=== PATIENT | female | born 1955 | race Caucasian/White ===

== ENCOUNTER 2019-01-22 07:12 | Day surgery (SDC) | payer MEDICARE, MEDICAID ==
[2019-01-22] MEDS ORDERED: Lactated Ringers 1,000 ML IV SCH (08:00)
[2019-01-22] MEDS ORDERED: Propofol 200 MG/20 ML SDV ONE (08:02)
[2019-01-22] MEDS ORDERED: fentaNYL 100 MCG/2 ML SDV ONE (08:02)
[2019-01-22] MEDS ORDERED: Midazolam 1 MG/ML 2 ML SDV ONE (08:02)
[2019-01-22] MEDS ORDERED: Dextrose 5%-Lactated Ringers 1,000 ML IV SCH (08:05)
[2019-01-22] MEDS ORDERED: Glycopyrrolate 0.2 MG/ML 2 ML SDV IVPUSH ONE (08:30)
--- NOTE | 2019-01-25 15:39 | OR ---
DATE OF PROCEDURE: 01/22/2019 SURGEON: Jaya Peraza MD PREOPERATIVE DIAGNOSIS: Recurrent morbid obesity, status post previous laparoscopic adjustable gastric band placement. POSTOPERATIVE DIAGNOSES: 1. Recurrent morbid obesity, status post previous laparoscopic adjustable gastric band placement. 2. Large paraesophageal diaphragmatic hernia associated with prolapse of band up into intrathoracic location. 3. Mild antral gastritis. OPERATIVE PROCEDURE: Esophagogastroduodenoscopy with antral biopsies for CLOtest. ANESTHESIA: IV sedation. INDICATION FOR PROCEDURE: This is a 63-year-old status post laparoscopic adjustable gastric band placement. The patient initially had reasonable results but presently has BMI of 62.6, and the plan is to proceed with upper GI endoscopy in preparation for conversion of the patient from a lap band status to Pati-en-Y gastric bypass. Potential risks of the procedure including bleeding and perforation were discussed, and the patient wishes to proceed. DETAILS OF PROCEDURE: The patient was taken to the operating room and placed in a left lateral decubitus position. IV sedation was administered, after which the upper GI endoscope was passed orally through the length of the esophagus and into the area of the esophagogastric junction. This was quite distorted and the EG junction was noted to be quite shortened up around 30 cm from the incisors indicating a large diaphragmatic hernia. As one progressed through the EG junction, then entered into the upper aspect of the stomach, the band could be identified. This was eventually traversed. There was no significant narrowing of the band imprint. There was some redness in the pouch in the EG junction above that likely related to some poor emptying in that area. The remainder of the stomach showed some patchy redness in the antrum, and the pyloric channel and visualized portions of the duodenum were unremarkable. Biopsies were obtained from the antrum and sent for CLOtest for H. pylori. Retroflexion confirmed a large paraesophageal diaphragmatic hernia and no evidence of erosion of the band into the stomach from that vantage point. Scope was then withdrawn and the procedure was then concluded. Plan will be to proceed with revision of this from a lap band status to Pati-en-Y gastric bypass status next . Paraesophageal diaphragmatic hernia will also be repaired concurrently. Potential risks of the procedure were reviewed with the patient and will be scheduled for this coming . Jaya Peraza MD /[id number]
== END 2019-01-22 10:26 | disposition home or self-care (01) ==
LOC: JP.SDS 07:12
PROVIDERS: ATTEND Surgery
DX: Z01.818 Encounter for other preprocedural examination (principal); K44.9 Diaphragmatic hernia without obstruction or gangrene; K29.70 Gastritis, unspecified, without bleeding; K95.09 Other complications of gastric band procedure; E66.01 Morbid (severe) obesity due to excess calories; I10 Essential (primary) hypertension; E11.9 Type 2 diabetes mellitus without complications; K21.9 Gastro-esophageal reflux disease without esophagitis; E78.5 Hyperlipidemia, unspecified; F32.9 Major depressive disorder, single episode, unspecified; J45.909 Unspecified asthma, uncomplicated; Z68.44 Body mass index [BMI] 60.0-69.9, adult
CPT/HCPCS: 43239; 87081; J2250; J2704; J3010; J3490; J7042

== ENCOUNTER 2019-01-28 08:35 | Inpatient (IN) | payer MEDICARE, MEDICAID ==
[~2019-01-28 08:35] MED LIST: Bupivacaine 0.5%/EPINEPHrine 1:200,000 50 ML MDV ONE
[2019-01-28] MEDS ORDERED: Levofloxacin 500 MG/20 ML SDV ONE (09:01)
[2019-01-28] MEDS ORDERED: Gabapentin 300 MG Cap PO ONE (09:15)
[2019-01-28] MEDS ORDERED: Scopolamine 1.5 MG Transdermal Patch TOP SCH (09:15)
[2019-01-28] MEDS ORDERED: Acetaminophen 500 MG Tab PO ONE (09:15)
[2019-01-28] MEDS ORDERED: Celecoxib 200 MG Cap PO ONE (09:15)
[2019-01-28] MEDS ORDERED: Dextrose 5%-Lactated Ringers 1,000 ML IV SCH (09:30)
[2019-01-28] MEDS ORDERED: Albuterol/Ipratropium 3.0-0.5 MG/3 ML Neb Soln NEB ONE (10:00)
[2019-01-28] MEDS ORDERED: Levofloxacin/Dextrose 5%-Water 500 MG in Premix Bag 1 BAG IV ONE (10:30)
[2019-01-28] MEDS ORDERED: Lidocaine 2% 100 MG/5 ML Syringe IVPUSH SCH (10:45)
[2019-01-28] MEDS ORDERED: Ketamine 500 MG/5 ML MDV IV SCH (10:45)
[2019-01-28] MEDS ORDERED: Ropivacaine 60 ML, Dexamethasone 8 MG, EPINEPHrine 0.4 MG, Sodium Chloride 0.9% 17.6 ML NERVRT SCH ×4 (10:45)
[2019-01-28] MEDS ORDERED: Ketamine 50 MG in Sodium Chloride 0.9% 49.5 ML IV SCH (10:45)
[2019-01-28] MEDS ORDERED: fentaNYL 250 MCG/5 ML SDV ONE ×2 (11:23→12:21)
[2019-01-28] MEDS ORDERED: Lactated Ringers 1,000 ML ONE (11:23)
[2019-01-28] MEDS ORDERED: Rocuronium 50 MG/5 ML Vial ONE ×2 (11:24→12:33)
[2019-01-28] MEDS ORDERED: Neostigmine Methylsulfate 1 MG/ML 5 ML Syringe ONE (11:24)
[2019-01-28] MEDS ORDERED: Propofol 200 MG/20 ML SDV ONE (11:24)
[2019-01-28] MEDS ORDERED: Succinylcholine 200 MG/10 ML MDV ONE (11:24)
[2019-01-28] MEDS ORDERED: Dexamethasone 4 MG/ML SDV ONE (11:24)
[2019-01-28] MEDS ORDERED: Ondansetron 4 MG/2 ML SDV ONE (11:24)
[2019-01-28] MEDS ORDERED: Glycopyrrolate 0.2 MG/ML 5 ML MDV ONE (11:24)
[2019-01-28] MEDS ORDERED: hydrOXYzine HCl 100 MG/2 ML SDV IM ONE (15:31)
[2019-01-28] MEDS ORDERED: Insulin Lispro 100 Unit/ML 3 ML KwikPen SUBCUT ONE (15:32)
[2019-01-28] MEDS ORDERED: Insulin Lispro 100 Unit/ML 3 ML KwikPen SUBCUT PRN (16:18)
[2019-01-28] MEDS ORDERED: Labetalol 20 MG/4 ML Syringe IVPUSH PRN (16:18)
[2019-01-28] MEDS ORDERED: HYDROmorphone 1 MG/ML Syringe IV PRN (16:18)
[2019-01-28] MEDS ORDERED: hydrOXYzine HCl 100 MG/2 ML SDV IM PRN (16:18)
[2019-01-28] MEDS ORDERED: diphenhydrAMINE 50 MG/ML SDV IVPUSH PRN (16:18)
[2019-01-28] MEDS ORDERED: Albuterol/Ipratropium 3.0-0.5 MG/3 ML Neb Soln INH PRN (16:18)
[2019-01-28] MEDS ORDERED: Ondansetron 4 MG/2 ML SDV IVPUSH PRN (16:18)
[2019-01-28] MEDS ORDERED: Metoclopramide 10 MG/2 ML SDV IVPUSH PRN (16:18)
[2019-01-28] MEDS ORDERED: 50% Dextrose in Water 50 ML Syringe IVPUSH PRN (16:18)
[2019-01-28] MEDS ORDERED: HYDROmorphone 0.5 MG/0.5 ML Syringe IVPUSH PRN (16:18)
[2019-01-28] MEDS ORDERED: Glucagon,Human Recombinant 1 MG Vial IM PRN (16:18)
[2019-01-28] MEDS: Dextrose 5%-Lactated Ringers 1,000 ML IV SCH (16:31)
[2019-01-28] MEDS: Lactated Ringers 1,000 ML IV SCH (16:33)
[2019-01-28] MEDS ORDERED: MVI, Adult with Vitamin K 10 ML, Thiamine 200 MG, Chromium/Copper/Mang/Selen/Zn 1 ML in... IV SCH ×4 (17:00)
[2019-01-28] MEDS: Pantoprazole 40 MG Vial IVPUSH SCH (17:49)
[2019-01-28] MEDS: Acetaminophen Soln 650 MG/20.3 ML UD Cup PO SCH ×2 (17:54→22:01)
[2019-01-28] MEDS: Heparin Sodium 5,000 Units/ML Vial SUBCUT SCH (20:34)
[2019-01-28] MEDS: Gabapentin 250 MG/5 ML Solution ML 470 ML Bottle PO SCH (20:34)
[2019-01-28] MEDS: Lidocaine 0.4%/D5W 2 GM/500 ML BAG IV SCH (20:35)
[2019-01-28] MEDS: Albuterol/Ipratropium 3.0-0.5 MG/3 ML Neb Soln INH SCH (20:35)
[2019-01-29] MEDS ORDERED: Iohexol 647 MG/ML 50 ML SDV PO SCH (01:30)
[2019-01-29] MEDS: Lactated Ringers 1,000 ML IV SCH (01:56)
--- NOTE | 2019-01-29 05:58 | CRLCR ---
Indication: Pati-en-Y gastric bypass Technique: Abdomen 2 view Comparison: None Findings/Impression: Bowel: Oral contrast has been administered. No sign of contrast extravasation to suggest leak. Contrast passes through the bypass into the proximal small bowel. No abnormality evident. Soft tissues: No sign of free air. No sign of soft tissue mass. No suspicious calcifications. Drainage catheter is in the left upper quadrant. Bones: Unremarkable for age. Dictated by Petey Kohli MD @ 01/29/2019 5:57:51 AM Dictated by: Petey Kohli MD @ 01/29/2019 05:57:59 (Electronically Signed)
[2019-01-29] MEDS: Dextrose 5%-Lactated Ringers 1,000 ML IV SCH ×3 (06:02→15:32)
[2019-01-29] MEDS: Acetaminophen Soln 650 MG/20.3 ML UD Cup PO SCH ×4 (06:02→23:16)
[2019-01-29] MEDS: Albuterol/Ipratropium 3.0-0.5 MG/3 ML Neb Soln INH SCH ×4 (07:25→20:49)
[2019-01-29] MEDS: SCOPOLAMINE PATCH CHECK TOP SCH (08:02)
[2019-01-29] MEDS ORDERED: Ondansetron 4 MG Tab.DIS PO PRN (08:10)
[2019-01-29] MEDS ORDERED: traMADol 50 MG Tab PO PRN (08:11)
[2019-01-29] MEDS ORDERED: Non-Formulary Medication 1 Each (Albuterol Sulfate [Proair Respiclick] 2 PUFF) INH PRN (08:11)
[2019-01-29] MEDS ORDERED: Cyclobenzaprine 10 MG Tab PO PRN (08:11)
[2019-01-29] MEDS ORDERED: Non-Formulary Medication 1 Each (Topiramate [Topiramate] 50 MG) PO SCH (09:00)
[2019-01-29] MEDS ORDERED: SERTRALINE 150 MG PO SCH (09:00)
[2019-01-29] MEDS ORDERED: Albuterol 8 GM Inhaler INH PRN (09:07)
[2019-01-29] MEDS: Gabapentin 250 MG/5 ML Solution ML 470 ML Bottle PO SCH ×3 (09:18→20:50)
[2019-01-29] MEDS: Heparin Sodium 5,000 Units/ML Vial SUBCUT SCH ×2 (09:19→20:51)
[2019-01-29] MEDS: Celecoxib 200 MG Cap PO SCH (09:19)
[2019-01-29] MEDS: Sertraline 50 MG Tab PO SCH (09:26)
[2019-01-29] MEDS: Topiramate 25 MG Tab PO SCH ×2 (09:26→20:50)
[2019-01-29] MEDS: Aspirin 81 MG Tab.EC PO SCH (09:27)
[2019-01-29] MEDS: Losartan 50 MG Tab PO SCH (09:27)
--- NOTE | 2019-01-29 11:36 | PN ---
DATE OF SERVICE: 01/29/2019 SUBJECTIVE: Karena is postoperative day #1. She reports her pain is well managed and her upper GI this morning was normal. Vital signs have been stable. She is up, sitting in the chair. Oral intake 390. Urine output via Negrete catheter was 2450, and she had 85 mL out of her HARRISON drain of a light pink serosanguineous drainage. She has no questions or concerns. OBJECTIVE: GENERAL: Karena Thornton is a 63-year-old female, alert, orientated. VITAL SIGNS: TPR is 97.7, 86, 18, blood pressure 152/74. HEENT: Negative. NECK: Supple. HEART: Regular rate and rhythm. LUNGS: Clear. ABDOMEN: Dressings dry and intact. HARRISON drain as above. Abdominal binder is on. EXTREMITIES: Reveal trace peripheral edema. ASSESSMENT: Diagnostic laparoscopy with removal of laparoscopic gastric band system, formation of Pati-en-Y gastric bypass surgery, partial gastrectomy, and liver biopsy for weight regain with history of laparoscopic gastric band with large paraesophageal hernia and severe esophagitis, esophageal dilatation, area of devascularization of the stomach, and marked hepatomegaly. PLAN: 1. Discontinue Negrete catheter. 2. Decrease IV to 100 mL per hour of D5 LR. 3. Discontinue lactated Ringer's. 4. Communication order, 3 med cups per hour, record at bedside. 5. Dressing off, january shower. 6. To restart home medications: Flexeril 10 mg t.i.d. p.r.n., Cozaar 50 mg p.o. daily, Zoloft 150 mg p.o. daily, Topamax 50 mg b.i.d., Ultram 50 mg q.6 hours p.r.n. severe back pain. 7. Good pulmonary toilet. 8. We will evaluate p.r.n. or in a.m. Kenia Valencia PA-C /[id number]
[2019-01-29] MEDS: Levofloxacin/Dextrose 5%-Water 500 MG in Premix Bag 1 BAG IV SCH (11:37)
[2019-01-29] MEDS: Lidocaine 0.4%/D5W 2 GM/500 ML BAG IV SCH (11:40)
[2019-01-29] MEDS ORDERED: MVI, Adult with Vitamin K 10 ML, Thiamine 200 MG, Chromium/Copper/Mang/Selen/Zn 1 ML in... IV SCH ×4 (16:00)
[2019-01-29] MEDS: Pantoprazole 40 MG Vial IVPUSH SCH (17:41)
[2019-01-30] MEDS: Dextrose 5%-Lactated Ringers 1,000 ML IV SCH (01:35)
[2019-01-30] MEDS: Acetaminophen Soln 650 MG/20.3 ML UD Cup PO SCH ×2 (05:44→12:01)
[2019-01-30] MEDS: Albuterol/Ipratropium 3.0-0.5 MG/3 ML Neb Soln INH SCH ×3 (07:26→14:51)
[2019-01-30] MEDS: Aspirin 81 MG Tab.EC PO SCH (08:04)
[2019-01-30] MEDS: Celecoxib 200 MG Cap PO SCH (08:04)
[2019-01-30] MEDS: Heparin Sodium 5,000 Units/ML Vial SUBCUT SCH (08:04)
[2019-01-30] MEDS: Losartan 50 MG Tab PO SCH (08:05)
[2019-01-30] MEDS: Sertraline 50 MG Tab PO SCH (08:05)
[2019-01-30] MEDS: Topiramate 25 MG Tab PO SCH (08:06)
[2019-01-30] MEDS: Gabapentin 250 MG/5 ML Solution ML 470 ML Bottle PO SCH (08:13)
[2019-01-30] MEDS ORDERED: Cyanocobalamin (Vitamin B12) 1,000 MCG/ML SDV IM ONE (09:00)
[2019-01-30] MEDS: SCOPOLAMINE PATCH CHECK TOP SCH (10:12)
[2019-01-30] MEDS ORDERED: Scopolamine 1.5 MG Transdermal Patch TRDERM ONE (10:30)
[2019-01-30] MEDS: Levofloxacin/Dextrose 5%-Water 500 MG in Premix Bag 1 BAG IV SCH (12:00)
--- NOTE | 2019-02-01 11:06 | DISCH ---
FINAL DIAGNOSES: 1. Weight regain with history of laparoscopic adjustable gastric band and large paraesophageal diaphragmatic hernia. 2. Associated severe esophagitis and esophageal dilation. 3. Area of devascularization of stomach, status post removal of gastric band. 4. Marked hepatomegaly. 5. Morbid obesity. 6. History of asthma. 7. History of hypertension. 8. History of type 2 diabetes mellitus. 9. History of gastroesophageal reflux disease. 10.History of obstructive sleep apnea. OPERATIVE PROCEDURES: Done on 01/28/2019, diagnostic laparoscopy with: 1. Removal of laparoscopic adjustable gastric band system. 2. Formation of Pati-en-Y gastric bypass. 3. Partial gastrectomy. 4. Richard-Cut needle liver biopsy. SUMMARY: This is a 63-year-old female presenting with weight regain along with quite a bit in the way of reflux, status post previous laparoscopic adjustable gastric band. On the date of admission, the band system was removed with formation of Pati-en-Y gastric bypass. An area of stomach was devascularized during the course of inspection and was resected, along with liver biopsy for a fairly marked hepatomegaly. Postoperatively, the patient has done well. At this point, we will have her discharged home. She has been instructed to stay on only liquid diet until the first appointment, which will be with Kenia Valencia at [facility] on 02/08/2019. Otherwise, her medications are summarized as per the medication reconciliation sheet. Also, her diabetes is well controlled at this time, prior to any coverage postoperatively.
--- NOTE | 2019-02-01 11:39 | OR ---
DATE OF PROCEDURE: 01/28/2019 SURGEON: Jaya Peraza MD PREOPERATIVE DIAGNOSES: 1. Weight regain with history of laparoscopic adjustable gastric band and associated large paraesophageal hernia. 2. Severe esophagitis and esophageal dilation associated with laparoscopic band status. 3. Paraesophageal diaphragmatic hernia. POSTOPERATIVE DIAGNOSES: 1. Weight regain with history of laparoscopic adjustable gastric band and associated large paraesophageal hernia. 2. Severe esophagitis and esophageal dilation associated with laparoscopic band status. 3. Area of gastric devascularization, status post takedown of laparoscopic adjustable gastric band. 4. Marked hepatomegaly. 5. Paraesophageal diaphragmatic hernia. OPERATIVE PROCEDURES: Diagnostic laparoscopy with: 1. Removal of laparoscopic adjustable gastric band system (68820). 2. Formation of Pati-en-Y gastric bypass with long limb gastroenterostomy (14619). 3. Partial gastrectomy (87172). 4. Richard-Cut needle liver biopsy (31223). 5. Repair of paraesophageal hernia (93152). ANESTHESIA: General. RUSTIC FENCE BUILDER: POORNIMA Pineda; and ТАТЬЯНА Hartley. INDICATIONS FOR PROCEDURE: This is a 63-year-old status post laparoscopic adjustable gastric band placement. The patient initiated had a reasonably good result, but subsequently has had significant weight regain and more recently has had problems with severe heartburn. Upper endoscopy revealed a significant paraesophageal hernia with prolapse of the band into the chest. With this, the patient also had severe esophagitis and marked esophageal dilation. Given all this, plan is to proceed with removal of the band system and conversion to Pati-en-Y gastric bypass and likely repair of the paraesophageal hernia. Potential risks of the procedure including bleeding, infection, leaks from various GI tract closures, possible bowel obstruction over time, as well as possibility of cardiopulmonary, septic, or hemorrhagic complications leading to were all discussed, and the patient wishes to proceed. DETAILS OF PROCEDURE: The patient was taken to the operating room, and after general endotracheal anesthesia was induced, she was placed in a lithotomy position. Negrete catheter was inserted, and the abdomen was prepped and draped. At 15 cm inferior and 5 cm left of xiphoid process, transverse incision was made and the peritoneal cavity entered under direct vision with an Optiview trocar inflated to 15 mmHg pressure of CO2. Laparoscope was then reinserted. No underlying trocar insertion site injuries were seen. Following this, 5 additional trocar was placed across the upper and mid abdomen, and general exploration was undertaken. The patient was noted to have quite a bit of inflammation in the area around the gastric pouch. Upon elevation of the liver, the liver was markedly enlarged and fatty infiltrated. Richard-Cut needle biopsy obtained from the left lobe of the liver. Minimal bleeding from the biopsy site was seen. Examination of the patient's incisional and umbilical hernia showed this to be broad-based with incarcerated omentum within it. At this point, we elected to leave this in place, as a repair today would almost certainly be associated with recurrence and possibly complication such as incarceration of bowel, should that recurrence occur. The patient would be best served probably by repair of this with mesh 1 to 1-1/2 years postop, after significant weight loss has been established. The initial dissection around the area behind the liver in the laparoscopic adjustable gastric band system was undertaken. This was readily dissected free from the overlying liver and the band then reduced. The patient had a paraesophageal hernia, which was then reduced as well and then repaired with some posterior crural stitches of 0 Ethibond reinforced with PTFE pledgets. Once this was complete, the port tubing was divided flush with the band, and the capsule around the band was subjectively divided with electrocautery. During the course of the dissection, some of the stomach overlying the band became somewhat devascularized and deserosalized, and this area was excised as a partial gastrectomy. Once the band was freed up, it was then divided and removed from the capsule and then that portion of the band removed from the peritoneal cavity. Portion of the port tubing remaining in the area was then also removed so that it would not be in the way of visualization. At this point, the imprint of the band was then divided with DARRIN black loads, thus creating the proximal gastric pouch. Through this, an anvil of a 25 mm EEA stapler was passed via [place] sump tube and brought out through the dependent portion of the gastric pouch. Following this then, the small bowel was addressed. The small bowel was identified at the ligament of Treitz and traced 200 cm distal to that point, where it was divided with DARRIN stapler. Small bowel was then traced out an additional 200 cm, where the [id number] enteroenterostomy was accomplished with an internal firing of the Endo-DARRIN 60 mm stapler. Common opening was then closed transversely with the same stapler and angles anastomosed and mesenteric defect approximated with some 0 Ethibond stitch, along with 4 mL of fibrin sealant. The divided end of the Pati limb was then brought up to an antecolic position up to the level of the gastric pouch without tension. The divided end of the Pati limb was then opened and main body of the EEA stapler passed several centimeters into the lumen of small bowel, brought up the anvil, united with it, thus creating the gastrojejunostomy. Upon removal of the stapler, double donuts of mucosa were noted within it, and the small bowel was closed off with a vascular staple line. The gastrojejunostomy was then reinforced with some 3-0 Vicryl seromuscular stitch, along with fibrin sealant. Leak test was accomplished with injection of 120 mL of air in the gastric pouch while submerged with cefoxitin-containing saline solution. No leaks were identified. A single Salo-Kenny drain was taken out through the left lateral trocar site and positioned adjacent to the gastric pouch, and from there up into the splenic fossa. With no further problems noted, trocars were removed and peritoneal cavity deflated. Incisions were closed with some 4-0 Vicryl skin stitch, which was also used to affix the drain, and the patient was taken to the recovery room in satisfactory condition. Physician malt specifications control assistant, Kenia Valencia, played an essential role in assisting in this case, helping to position the patient, retract structures as needed, as well as cutting and suturing as indicated. Her presence improved patient safety and decreased operative time. Jaya Peraza MD /[id number]
== END 2019-01-30 16:00 | disposition home or self-care (01) | DRG 620 ==
LOC: JP.SDS 08:35 → JP.SDSSCHI 08:35 → EDSTATUS 11:00 → JP.MS 16:00
PROVIDERS: ADMIT Surgery; ATTEND Surgery
PROC: 0DB80ZZ Excision of Small Intestine, Open Approach (ICD-10-PCS; principal; 2019-01-28)
PROC: 0D164ZA Bypass Stomach to Jejunum, Percutaneous Endoscopic Approach (ICD-10-PCS; principal; 2019-01-28)
PROC: 0DB63ZZ Excision of Stomach, Percutaneous Approach (ICD-10-PCS; principal; 2019-01-28)
PROC: 0DP64CZ Removal of Extraluminal Device from Stomach, Percutaneous Endoscopic Approach (ICD-10-PCS; principal; 2019-01-28)
PROC: 0DB64ZZ Excision of Stomach, Percutaneous Endoscopic Approach (ICD-10-PCS; 2019-01-28)
PROC: 0FB24ZX Excision of Left Lobe Liver, Percutaneous Endoscopic Approach, Diagnostic (ICD-10-PCS; 2019-01-28)
PROC: 0BQT4ZZ Repair Diaphragm, Percutaneous Endoscopic Approach (ICD-10-PCS; 2019-01-28)
DX: E66.01 Morbid (severe) obesity due to excess calories (principal); K43.0 Incisional hernia with obstruction, without gangrene; Z68.44 Body mass index [BMI] 60.0-69.9, adult; K44.9 Diaphragmatic hernia without obstruction or gangrene; K21.0 Gastro-esophageal reflux disease with esophagitis; R16.0 Hepatomegaly, not elsewhere classified; T85.898A Other specified complication of other internal prosthetic devices, implants and grafts, initial encounter; K76.0 Fatty (change of) liver, not elsewhere classified; Y83.9 Surgical procedure, unspecified as the cause of abnormal reaction of the patient, or of later complication, without mention of misadventure at the time of the procedure; K22.8 Other specified diseases of esophagus; E11.9 Type 2 diabetes mellitus without complications; Z98.84 Bariatric surgery status; K31.89 Other diseases of stomach and duodenum; J45.909 Unspecified asthma, uncomplicated; F32.9 Major depressive disorder, single episode, unspecified; I10 Essential (primary) hypertension; H35.30 Unspecified macular degeneration; G47.33 Obstructive sleep apnea (adult) (pediatric); M17.0 Bilateral primary osteoarthritis of knee; Z79.82 Long term (current) use of aspirin; Z88.5 Allergy status to narcotic agent; Z88.8 Allergy status to other drugs, medicaments and biological substances; Z90.710 Acquired absence of both cervix and uterus; Z90.79 Acquired absence of other genital organ(s); Z90.722 Acquired absence of ovaries, bilateral
CPT/HCPCS: 36415; 74240; 76000; 80053; 82962; 83735; 83880; 84100; 85025; 86850; 86900; 86901; 88300; 88307; 88313; 94640; 94762; A9270-GY; C9113; J0171; J0330; J1100; J1644; J1815; J1815-GY; J1956; J2001; J2405; J2704; J2710; J2795; J3010; J3410; J3411; J3420; J3490; J7030; J7042; J7050; J7120; J7620-GY; Q9967

== ENCOUNTER 2019-08-06 23:03 | Inpatient (IN) | payer MEDICARE, MEDICAID ==
[2019-08-06] MEDS ORDERED: HYDROmorphone/Normal Saline 15 MG/30 ML PCA IV PRN (23:15)
[2019-08-06] MEDS ORDERED: Naloxone 0.4 MG/ML SDV IVPUSH PRN (23:15)
[2019-08-06] MEDS: Dextrose 5%-Lactated Ringers 1,000 ML IV SCH (23:32)
[2019-08-07] MEDS: Dextrose 5%-Lactated Ringers 1,000 ML IV SCH ×2 (06:11→22:30)
[2019-08-07] MEDS ORDERED: Meropenem 500 MG SDV ONE (07:02)
[2019-08-07] MEDS ORDERED: Bupivacaine 0.5%/EPINEPHrine 1:200,000 50 ML MDV ONE (07:02)
[2019-08-07] MEDS ORDERED: Ondansetron 4 MG/2 ML SDV ONE (08:02)
[2019-08-07] MEDS ORDERED: Dexamethasone 4 MG/ML SDV ONE (08:02)
[2019-08-07] MEDS ORDERED: Propofol 200 MG/20 ML SDV ONE (08:02)
[2019-08-07] MEDS ORDERED: Rocuronium 50 MG/5 ML Vial ONE ×2 (08:02→10:55)
[2019-08-07] MEDS ORDERED: fentaNYL 250 MCG/5 ML SDV ONE (08:02)
[2019-08-07] MEDS ORDERED: Ketorolac 60 MG/2 ML SDV ONE (08:02)
[2019-08-07] MEDS ORDERED: Succinylcholine 200 MG/10 ML MDV ONE (08:06)
[2019-08-07] MEDS ORDERED: Midazolam 1 MG/ML 2 ML SDV ONE (09:49)
[2019-08-07] MEDS ORDERED: Meropenem 500 MG in Sodium Chloride 0.9% 50 ML IV ONE (10:00)
[2019-08-07] MEDS ORDERED: Albuterol/Ipratropium 3.0-0.5 MG/3 ML Neb Soln INH ONE (10:00)
[2019-08-07] MEDS ORDERED: Glycopyrrolate 0.2 MG/ML 5 ML MDV ONE (10:19)
[2019-08-07] MEDS ORDERED: fentaNYL 100 MCG/2 ML SDV ONE ×2 (10:57→12:58)
[2019-08-07] MEDS ORDERED: Ketamine 50 MG in Sodium Chloride 0.9% 49.5 ML IV SCH (11:00)
[2019-08-07] MEDS ORDERED: Lidocaine 0.4%/D5W 2 GM/500 ML BAG IV SCH (11:00)
[2019-08-07] MEDS ORDERED: Lidocaine 2% 100 MG/5 ML Syringe IVPUSH SCH (11:00)
[2019-08-07] MEDS ORDERED: Ketamine 500 MG/5 ML MDV IV SCH (11:00)
[2019-08-07] MEDS ORDERED: Neostigmine Methylsulfate 1 MG/ML 5 ML Syringe ONE (11:23)
[2019-08-07] MEDS ORDERED: Insulin Lispro 100 Unit/ML 3 ML KwikPen SUBCUT ONE ×2 (13:47→14:00)
[2019-08-07] MEDS ORDERED: Meperidine PF 100 MG/ML Syringe IM ONE (14:01)
[2019-08-07] MEDS ORDERED: hydrOXYzine HCl 100 MG/2 ML SDV IM ONE (14:02)
[2019-08-07] MEDS ORDERED: HYDROmorphone 0.5 MG/0.5 ML Syringe IVPUSH PRN (14:05)
[2019-08-07] MEDS ORDERED: 50% Dextrose in Water 50 ML Syringe IVPUSH PRN (14:05)
[2019-08-07] MEDS ORDERED: Glucagon,Human Recombinant 1 MG Vial IM PRN (14:05)
[2019-08-07] MEDS ORDERED: hydrOXYzine HCl 100 MG/2 ML SDV IM PRN (14:05)
[2019-08-07] MEDS ORDERED: Albuterol/Ipratropium 3.0-0.5 MG/3 ML Neb Soln INH PRN (14:05)
[2019-08-07] MEDS ORDERED: diphenhydrAMINE 50 MG/ML SDV IVPUSH PRN (14:05)
[2019-08-07] MEDS ORDERED: traMADol 50 MG Tab PO PRN (14:12)
[2019-08-07] MEDS ORDERED: Cyclobenzaprine 10 MG Tab PO PRN (14:13)
[2019-08-07] MEDS: Lidocaine 0.4%/D5W 2 GM/500 ML BAG IV SCH (15:52)
[2019-08-07] MEDS: Meropenem 500 MG in Sodium Chloride 0.9% 50 ML IV SCH ×2 (15:52→21:44)
[2019-08-07] MEDS ORDERED: Pantoprazole 40 MG Vial IVPUSH SCH (16:00)
[2019-08-07] MEDS ORDERED: MVI, Adult with Vitamin K 10 ML, Thiamine 200 MG, Chromium/Copper/Mang/Selen/Zn 1 ML in... IV SCH ×4 (16:00)
[2019-08-07] MEDS: Gabapentin 300 MG Cap PO SCH ×2 (17:03→20:19)
[2019-08-07] MEDS: Heparin Sodium 5,000 Units/ML Vial SUBCUT SCH (17:04)
[2019-08-07] MEDS: Acetaminophen 325 MG Tab PO SCH ×2 (17:15→21:45)
[2019-08-07] MEDS: Albuterol/Ipratropium 3.0-0.5 MG/3 ML Neb Soln INH SCH ×2 (18:15→20:15)
[2019-08-07] MEDS: Insulin Lispro 100 Unit/ML 3 ML KwikPen SUBCUT PRN (21:46)
[2019-08-08] MEDS ORDERED: Lactated Ringers 500 ML IV ONE (00:45)
[2019-08-08] MEDS: Meropenem 500 MG in Sodium Chloride 0.9% 50 ML IV SCH ×3 (03:54→15:33)
[2019-08-08] MEDS: Acetaminophen 325 MG Tab PO SCH ×5 (03:57→23:28)
[2019-08-08] MEDS: Dextrose 5%-Lactated Ringers 1,000 ML IV SCH (04:10)
[2019-08-08] MEDS ORDERED: Iopamidol 612 MG/ML 50 ML SDV PO ONE (04:26)
[2019-08-08] MEDS: Heparin Sodium 5,000 Units/ML Vial SUBCUT SCH ×2 (05:00→17:24)
--- NOTE | 2019-08-08 05:09 | CRLCR ---
Indication: Post Pati-en-Y gastric bypass surgery. Technique: Upper GI all with 50 cc Isovue-300 2 views Comparison: January 29, 2019 Findings/Impression: No sign of contrast extravasation. Visualized GI tract is normal in caliber. No abnormality evident. Dictated by Petey Kohli MD @ Aug 08 2019 9:03PM Signed by Dr. Petey Kohli @ Aug 08 2019 9:05PM
[2019-08-08] MEDS: Albuterol/Ipratropium 3.0-0.5 MG/3 ML Neb Soln INH SCH ×4 (07:14→20:06)
--- NOTE | 2019-08-08 07:23 | CRLCR ---
KUB. Comparison x-ray 08/08/2019 dated 08/08 4:40 a.m. FINDINGS: : Residual contrast in the stomach. No contrast extravasation seen. Contrast opacification in small bowel. Bowel gas pattern appears nonobstructive. Right abdominal victorino. Bladder catheter. Dictated by Melisa Lewis MD @ Aug 08 2019 7:19AM Signed by Dr. Melisa Lewis @ Aug 08 2019 7:21AM
[2019-08-08] MEDS: Celecoxib 200 MG Cap PO SCH (08:36)
[2019-08-08] MEDS: Losartan 50 MG Tab PO SCH (08:36)
[2019-08-08] MEDS: Gabapentin 300 MG Cap PO SCH ×3 (08:36→20:05)
[2019-08-08] MEDS: Sertraline 50 MG Tab PO SCH (08:37)
[2019-08-08] MEDS ORDERED: Magnesium Sulfate/Water 2 GM in Premix Bag 1 BAG IV SCH (10:00)
--- NOTE | 2019-08-08 10:54 | HP ---
The patient was admitted via [facility] on transfer last night with a small bowel obstruction. The patient is status post conversion of a band status to Pati-en-Y gastric bypass this past January. At that time, she was noted to have a very large broad-based incisional and umbilical hernia. In the interim, this has become incarcerated with several loops of small bowel within it, and she presents now with a picture of bowel obstruction overnight. She had been fairly comfortable while being n.p.o., but this clearly needs to be repaired. The plan will be to proceed with an open laparotomy, reduction of the small bowel obstruction, and possible bowel resection. If we needed to do a bowel resection, we will likely revise the patient's Pati-en-Y gastric bypass to a more distal formation to facilitate some additional weight loss as she is still around 349 pounds, although this is down significantly from where she was in January. If bowel resection is undertaken, we may or may not use mesh to repair the hernia depending on the cleanliness of the resection and potential risks per se including bleeding and infection if a revision of the gastric bypass is undertaken, possible problems with nutritional issues, or frequent bowel movements are gone over as well as possibility of infection of the wound, recurrence of the hernia, and possible infection of mesh if placed were all gone over along with the remote possibility of cardiopulmonary, septic, or hemorrhagic complications leading to , and the patient wishes to proceed. Surgery will be undertaken later on this morning. Jaya Peraza MD /[id number]
[2019-08-08] MEDS: Lidocaine 0.4%/D5W 2 GM/500 ML BAG IV SCH (11:26)
--- NOTE | 2019-08-08 13:12 | PN ---
DATE OF SERVICE: 08/08/2019 The patient has been afebrile with stable vital signs. Urine output has been just on the borderline. Her creatinine is fairly stable, from 0.8 preoperatively to 0.9 this morning. Her magnesium is somewhat low as well. Upper GI x-ray is somewhat concerning for the patient having possibly developed a fistula between the bypassed stomach and the main stomach. If this is the case, we will at some point need to reoperate. The upper abdomen was free of significant adhesions and this, at that point, could likely be done laparoscopically. We will try to confirm this plan with an upper GI endoscope on Friday. Otherwise, we will leave the Negrete catheter in today due to marked urine output. We will back down on the IV rate somewhat later today. Magnesium is low and that will be supplemented over the next 48 hours. Jaya Peraza MD /[id number]
[2019-08-08] MEDS: Pantoprazole 40 MG Delayed-Release Granules 1 Packet PO SCH (16:44)
[2019-08-08] MEDS ORDERED: Dextrose 5%-Lactated Ringers 1,000 ML IV SCH (18:00)
[2019-08-09] MEDS: Acetaminophen 325 MG Tab PO SCH ×4 (04:12→22:06)
[2019-08-09] MEDS: Heparin Sodium 5,000 Units/ML Vial SUBCUT SCH ×2 (05:44→18:45)
[2019-08-09] MEDS: Albuterol/Ipratropium 3.0-0.5 MG/3 ML Neb Soln INH SCH ×4 (07:24→22:04)
--- NOTE | 2019-08-09 07:58 | PN ---
DATE OF SERVICE: 08/09/2019 SUBJECTIVE: Karena is postoperative day 2. She is up, sitting in the chair. She states her pain is controlled. Temp max 100.8. She is using her IS, passing flatus, has no other concerns or questions. OBJECTIVE: GENERAL: Karena Thornton is a pleasant 63-year-old female. VITAL SIGNS: TPR is 98.6, 73, 18. Blood pressure 129/73. HEENT: Negative. NECK: Supple. HEART: Regular rate and rhythm. LUNGS: Reveal decreased breath sounds in the bases. No rales or rhonchi. ABDOMEN: Dressing dry and intact. HARRISON drain put out 5 mL of a light pink drainage. EXTREMITIES: IV did infiltrate. Left hand is swollen. SKIN: Without rash. ASSESSMENT: Exploratory laparotomy with lysis of adhesions and: 1. Revision of the jejunojejunostomy component of the Pati-en-Y gastric bypass surgery. 2. Separate small-bowel resection. 3. Repair of incarcerated incisional hernia. 4. Repair of incarcerated umbilical hernia. POSTOPERATIVE DIAGNOSES: 1. Incarcerated incisional umbilical hernia. 2. Segment ischemic small bowel with deserosalization of the distal small bowel. 3. Persistent extreme obesity, status post Pati-en-Y gastric bypass surgery. Date of surgery, 08/07/2019. Surgeon, Jaya Peraza MD. PLAN: 1. Discontinue Negrete. 2. Schedule EGD for 08/10/2019. IV local sedation. Jaya Peraza MD. 3. Robinul 0.4 mg IV on-call to OR and n.p.o. after midnight. 4. K-Phos 45 millimoles IV 1 time. 5. Good pulmonary toilet. 6. We will evaluate p.r.n. or in a.. Kenia Valencia PA-C /[id number]
[2019-08-09] MEDS: Celecoxib 200 MG Cap PO SCH (08:05)
[2019-08-09] MEDS: Gabapentin 300 MG Cap PO SCH ×3 (08:05→22:04)
[2019-08-09] MEDS: Losartan 50 MG Tab PO SCH (08:05)
[2019-08-09] MEDS: Sertraline 50 MG Tab PO SCH (08:06)
[2019-08-09] MEDS ORDERED: Cyanocobalamin (Vitamin B12) 1,000 MCG/ML SDV IM ONE (09:00)
[2019-08-09] MEDS ORDERED: Sodium Chloride 0.9% 10 ML Syringe FLUSH PRN (09:05)
[2019-08-09 09:23] LABS: HEMOGLOBIN A1C 6.1 % (4.5-6.2)
[2019-08-09] MEDS: Pantoprazole 40 MG Delayed-Release Granules 1 Packet PO SCH (09:47)
[2019-08-09] MEDS: Potassium Phosphates 22.5 MMOLE in Sodium Chloride 0.9% 250 ML IV SCH ×2 (09:56→13:11)
[2019-08-09] MEDS: Dextrose 5%-Lactated Ringers 1,000 ML IV SCH (22:10)
[2019-08-10] MEDS: Acetaminophen 325 MG Tab PO SCH ×4 (04:01→21:53)
[2019-08-10] MEDS: Heparin Sodium 5,000 Units/ML Vial SUBCUT SCH ×2 (07:08→17:14)
[2019-08-10] MEDS: Albuterol/Ipratropium 3.0-0.5 MG/3 ML Neb Soln INH SCH ×4 (07:16→21:49)
[2019-08-10] MEDS ORDERED: Midazolam 1 MG/ML 2 ML SDV ONE (08:29)
[2019-08-10] MEDS ORDERED: Propofol 200 MG/20 ML SDV ONE (08:29)
[2019-08-10] MEDS ORDERED: fentaNYL 100 MCG/2 ML SDV ONE (08:29)
[2019-08-10] MEDS ORDERED: Glycopyrrolate 0.2 MG/ML 2 ML SDV IVPUSH ONE (08:30)
[2019-08-10] MEDS: Gabapentin 300 MG Cap PO SCH ×3 (09:38→21:49)
[2019-08-10] MEDS: Celecoxib 200 MG Cap PO SCH (11:38)
[2019-08-10] MEDS: Losartan 50 MG Tab PO SCH (11:38)
[2019-08-10] MEDS: Pantoprazole 40 MG Delayed-Release Granules 1 Packet PO SCH (11:39)
[2019-08-10] MEDS: Sertraline 50 MG Tab PO SCH (11:39)
[2019-08-10] MEDS: Dextrose 5%-Lactated Ringers 1,000 ML IV SCH (15:33)
[2019-08-11] MEDS: Dextrose 5%-Lactated Ringers 1,000 ML IV SCH ×3 (01:11→21:16)
[2019-08-11] MEDS: Acetaminophen 325 MG Tab PO SCH ×4 (04:00→21:23)
[2019-08-11] MEDS: Heparin Sodium 5,000 Units/ML Vial SUBCUT SCH (05:45)
[2019-08-11] MEDS ORDERED: Lidocaine 2% 100 MG/5 ML Syringe IVPUSH SCH (07:30)
[2019-08-11] MEDS: Albuterol/Ipratropium 3.0-0.5 MG/3 ML Neb Soln INH SCH ×4 (07:43→21:19)
[2019-08-11] MEDS: Gabapentin 300 MG Cap PO SCH ×3 (08:37→21:20)
[2019-08-11] MEDS: Celecoxib 200 MG Cap PO SCH (08:37)
[2019-08-11] MEDS: Sertraline 50 MG Tab PO SCH (08:38)
[2019-08-11] MEDS: Losartan 50 MG Tab PO SCH (08:38)
[2019-08-11] MEDS: Pantoprazole 40 MG Delayed-Release Granules 1 Packet PO SCH (08:40)
[2019-08-11] MEDS ORDERED: diphenhydrAMINE 25 MG Cap PO PRN (10:44)
--- NOTE | 2019-08-11 13:34 | PN ---
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 She states that she has been having no pain, up ambulating. Vital signs have been stable. Oral intake 1480, urine output 2850, HARRISON put out 20 mL of a light pink drainage. REVIEW OF SYSTEMS: Remainder of review of systems negative for any pertinent positives and negatives. OBJECTIVE: GENERAL: Karena Thornton is a pleasant 63-year-old female. VITAL SIGNS: TPR is 97.5, 85, 20. Blood pressure 137/79. HEENT: Negative. NECK: Supple. HEART: Regular rate and rhythm. LUNGS: Clear. ABDOMEN: Aquacel dressing remains on. HARRISON drain intact. Abdominal binder has not been on. EXTREMITIES: Without peripheral edema. ASSESSMENT: Exploratory laparotomy with lysis of adhesions and: 1. Revision of the jejunojejunostomy component of the Pati-en-Y gastric bypass surgery. 2. Separate small-bowel resection. 3. Repair of incarcerated incisional hernia. 4. Repair of incarcerated umbilical hernia. PLAN: 1. Schedule and have consent signed for open partial gastrectomy with Pati-en-Y reconstruction; general anesthesia with lidocaine, ketamine, and TAP block; , 08/12/2019; Jaya Peraza, Surgeon. 2. N.p.o. after midnight. 3. Continue good pulmonary toilet. 4. We will evaluate p.r.n. or in a.m. Kenia Valencia PA-C /[id number]
[2019-08-12] MEDS: Acetaminophen 325 MG Tab PO SCH ×3 (04:24→17:42)
[2019-08-12] MEDS ORDERED: Meropenem 500 MG SDV ONE (06:58)
[2019-08-12] MEDS: Albuterol/Ipratropium 3.0-0.5 MG/3 ML Neb Soln INH SCH ×4 (07:14→22:16)
[2019-08-12] MEDS ORDERED: Ketamine 500 MG/5 ML MDV IV SCH ×2 (07:30→09:00)
[2019-08-12] MEDS ORDERED: Lidocaine 0.4%/D5W 2 GM/500 ML BAG IV SCH (07:30)
--- NOTE | 2019-08-12 08:10 | PN ---
DATE OF SERVICE: 08/12/2019 SUBJECTIVE: Karena is n.p.o. She will be having surgery this afternoon. She has no questions or concerns. OBJECTIVE: GENERAL: Karena is a pleasant 63-year-old female. VITAL SIGNS: TPR is 98.9. She did have a temperature of 100.3 at 2200. Pulse 84, respirations 16, blood pressure 144/73. HEENT: Negative. NECK: Supple. HEART: Regular rate and rhythm. LUNGS: Clear. ABDOMEN: Aquacel dressing is on. She has one HARRISON drain and that put out 10 mL of a light yellow drainage. EXTREMITIES: Without peripheral edema. ASSESSMENT: Exploratory laparotomy with lysis of adhesions and: 1. Revision of the jejunojejunostomy component of the Pati-en-Y gastric bypass surgery. 2. Separate small-bowel resection. 3. Repair of incarcerated incisional hernia. 4. Repair of incarcerated umbilical hernia. PLAN: Rx meropenem 500 mg IV one time on-call to OR. Orders to be written postoperatively. Kenia Valencia PA-C /[id number]
[2019-08-12] MEDS: Pantoprazole 40 MG Delayed-Release Granules 1 Packet PO SCH (08:43)
[2019-08-12] MEDS: Gabapentin 300 MG Cap PO SCH ×2 (08:43→15:13)
[2019-08-12] MEDS: Losartan 50 MG Tab PO SCH (08:43)
[2019-08-12] MEDS: Celecoxib 200 MG Cap PO SCH (08:43)
[2019-08-12] MEDS: Sertraline 50 MG Tab PO SCH (08:44)
[2019-08-12] MEDS ORDERED: Lidocaine 2% 100 MG/5 ML Syringe IVPUSH SCH (09:00)
[2019-08-12] MEDS ORDERED: Ketamine 50 MG in Sodium Chloride 0.9% 49.5 ML IV SCH (09:00)
[2019-08-12] MEDS ORDERED: Neostigmine Methylsulfate 1 MG/ML 5 ML Syringe ONE (09:23)
[2019-08-12] MEDS ORDERED: Propofol 200 MG/20 ML SDV ONE (09:23)
[2019-08-12] MEDS ORDERED: Dexamethasone 4 MG/ML SDV ONE (09:23)
[2019-08-12] MEDS ORDERED: Succinylcholine 200 MG/10 ML MDV ONE (09:23)
[2019-08-12] MEDS ORDERED: Rocuronium 50 MG/5 ML Vial ONE ×2 (09:23→11:54)
[2019-08-12] MEDS ORDERED: Ondansetron 4 MG/2 ML SDV ONE (09:23)
[2019-08-12] MEDS ORDERED: fentaNYL 250 MCG/5 ML SDV ONE ×2 (09:23→11:33)
[2019-08-12] MEDS ORDERED: Glycopyrrolate 0.2 MG/ML 5 ML MDV ONE (09:23)
[2019-08-12] MEDS ORDERED: Lactated Ringers 1,000 ML ONE (09:28)
[2019-08-12] MEDS ORDERED: Meropenem 500 MG in Sodium Chloride 0.9% 50 ML IV ONE (10:00)
[2019-08-12] MEDS: Lidocaine 0.4%/D5W 2 GM/500 ML BAG IV SCH (15:13)
[2019-08-12] MEDS: Ondansetron 4 MG/2 ML SDV IV PRN (15:16)
[2019-08-12] MEDS: MVI, Adult with Vitamin K 10 ML, Thiamine 200 MG, Chromium/Copper/Mang/Selen/Zn 1 ML in... IV SCH ×4 (17:34)
[2019-08-12] MEDS: Meropenem 500 MG in Sodium Chloride 0.9% 50 ML IV SCH ×2 (17:36→22:15)
[2019-08-12] MEDS: Pantoprazole 40 MG Vial IVPUSH SCH (17:40)
[2019-08-12] MEDS: Metoclopramide 10 MG/2 ML SDV IVPUSH PRN (18:15)
[2019-08-12] MEDS: HYDROmorphone 1 MG/ML Syringe IV PRN (18:34)
[2019-08-12] MEDS: Heparin Sodium 5,000 Units/ML Vial SUBCUT SCH (20:03)
[2019-08-12] MEDS: Magnesium Sulfate/Water 2 GM in Premix Bag 1 BAG IV SCH (20:04)
[2019-08-12] MEDS: Acetaminophen Soln 650 MG/20.3 ML UD Cup PO SCH (22:00)
[2019-08-12] MEDS: Gabapentin 250 MG/5 ML Solution ML 470 ML Bottle PO SCH (22:15)
[2019-08-13] MEDS: Dextrose 5%-Lactated Ringers 1,000 ML IV SCH ×2 (00:14→06:27)
[2019-08-13] MEDS: Ondansetron 4 MG/2 ML SDV IV PRN ×2 (00:19→03:50)
[2019-08-13] MEDS: Metoclopramide 10 MG/2 ML SDV IVPUSH PRN (00:20)
[2019-08-13] MEDS: HYDROmorphone 1 MG/ML Syringe IV PRN ×5 (00:20→22:12)
[2019-08-13] MEDS: Magnesium Sulfate/Water 2 GM in Premix Bag 1 BAG IV SCH ×4 (02:40→19:25)
[2019-08-13] MEDS: Acetaminophen Soln 650 MG/20.3 ML UD Cup PO SCH ×4 (03:20→21:03)
[2019-08-13] MEDS: Meropenem 500 MG in Sodium Chloride 0.9% 50 ML IV SCH ×4 (04:09→22:09)
[2019-08-13] MEDS: Insulin Lispro 100 Unit/ML 3 ML KwikPen SUBCUT PRN (04:12)
[2019-08-13] MEDS ORDERED: Iopamidol 612 MG/ML 50 ML SDV PO ONE (04:20)
--- NOTE | 2019-08-13 05:25 | CRLCR ---
INDICATION: Evaluate Pati-en-Y after gastric bypass. COMPARISON: None available. FINDINGS: Two plain films of the abdomen are obtained after ingestion a small amount of oral contrast. Films were obtained immediately after ingestion and at 15 minutes. Contrast enters the gastric remnant, but does not pass easily through the anastomosis into the jejunum. There is no sign of extravasation of contrast from the gastric jejunal anastomosis. There is no distention of bowel to suggest obstruction or ileus. Incidental note is made of moderate diverticulosis of the descending colon with some residual contrast within the diverticuli. A Salo-Kenny drain is seen in the left mid abdomen. A line of surgical skin victorino is seen extending from the superior abdomen into the mid pelvis to the right of midline. The visualized lung bases are clear. IMPRESSION: Ingested oral contrast has not passed from the gastric remnant into the jejunum. This suggests edema at the anastomosis. No sign of any extravasation of contrast from the gastric jejunal anastomosis. Dictated by Regis Medel MD @ Aug 13 2019 5:19AM Signed by Dr. Regis Medel @ Aug 13 2019 5:22AM
[2019-08-13] MEDS: Albuterol/Ipratropium 3.0-0.5 MG/3 ML Neb Soln INH SCH ×4 (07:09→20:48)
[2019-08-13] MEDS ORDERED: Scopolamine 1.5 MG Transdermal Patch TRDERM PRN (07:11)
[2019-08-13] MEDS: Heparin Sodium 5,000 Units/ML Vial SUBCUT SCH ×2 (09:20→19:24)
[2019-08-13] MEDS: Losartan 50 MG Tab PO SCH (09:20)
[2019-08-13] MEDS: Celecoxib 200 MG Cap PO SCH (09:20)
[2019-08-13] MEDS: Lidocaine 0.4%/D5W 2 GM/500 ML BAG IV SCH (09:21)
[2019-08-13] MEDS: Gabapentin 250 MG/5 ML Solution ML 470 ML Bottle PO SCH ×3 (09:21→20:48)
[2019-08-13] MEDS: Sertraline 50 MG Tab PO SCH (09:22)
--- NOTE | 2019-08-13 10:14 | PN ---
DATE OF SERVICE: 08/13/2019 SUBJECTIVE: Karena is postoperative day 1. She has had a lot of nausea and dysphagia during the night. She is requesting a scopolamine patch. Vital signs have been stable. Her pain has been managed. She has been up, ambulating. Upper GI was this morning and did show edema at the anastomosis. REVIEW OF SYSTEMS: Remainder of review of systems negative for any pertinent positives and negatives. OBJECTIVE: GENERAL: Karena Thornton is a pleasant 63-year-old female. She is alert and orientated. VITAL SIGNS: TPR; 98.5, 86, 16. Blood pressure is 118/60. HEENT: Negative. NECK: Supple. HEART: Regular rate and rhythm. LUNGS: Clear. ABDOMEN: Dressings dry and intact. HARRISON drains are intact and draining a light pink serosanguineous drainage. EXTREMITIES: Without peripheral edema. ASSESSMENT: Exploratory laparotomy with partial gastrectomy with Pati-en-Y gastrojejunostomy, intraoperative and placement of EEA anvil, large gastrogastric fistula, shortened gastrojejunostomy with marked gastroparesis. PLAN: Decrease IV to 125 mL/hour. Ice chips only. Discontinue Negrete catheter. Scopolamine patch every 72 hours. We will evaluate p.r.n. or in a.m. Kenia Valencia PA-C /[id number]
[2019-08-13] MEDS: MVI, Adult with Vitamin K 10 ML, Thiamine 200 MG, Chromium/Copper/Mang/Selen/Zn 1 ML in... IV SCH ×4 (17:37)
[2019-08-13] MEDS: Pantoprazole 40 MG Vial IVPUSH SCH (17:39)
[2019-08-14] MEDS: Magnesium Sulfate/Water 2 GM in Premix Bag 1 BAG IV SCH ×4 (02:20→20:16)
[2019-08-14] MEDS: Acetaminophen Soln 650 MG/20.3 ML UD Cup PO SCH ×4 (03:43→22:01)
[2019-08-14] MEDS: Dextrose 5%-Lactated Ringers 1,000 ML IV SCH ×2 (04:24→20:17)
[2019-08-14] MEDS: Celecoxib 200 MG Cap PO SCH (07:33)
[2019-08-14] MEDS: Albuterol/Ipratropium 3.0-0.5 MG/3 ML Neb Soln INH SCH (07:33)
[2019-08-14] MEDS: Gabapentin 250 MG/5 ML Solution ML 470 ML Bottle PO SCH ×3 (08:01→20:41)
[2019-08-14] MEDS: Heparin Sodium 5,000 Units/ML Vial SUBCUT SCH ×2 (08:01→20:16)
[2019-08-14] MEDS: Losartan 50 MG Tab PO SCH (08:01)
[2019-08-14] MEDS: Sertraline 50 MG Tab PO SCH (08:01)
[2019-08-14] MEDS: VERIFY SCOP PATCH TOP SCH (08:02)
[2019-08-14] MEDS ORDERED: Albuterol/Ipratropium 3.0-0.5 MG/3 ML Neb Soln INH PRN (08:31)
[2019-08-14] MEDS ORDERED: Cyanocobalamin (Vitamin B12) 1,000 MCG/ML SDV IM ONE (09:00)
[2019-08-14] MEDS ORDERED: MVI, Adult with Vitamin K 10 ML, Thiamine 200 MG, Chromium/Copper/Mang/Selen/Zn 1 ML in... IV SCH ×4 (11:00)
[2019-08-14] MEDS: Pantoprazole 40 MG Vial IVPUSH SCH (15:12)
[2019-08-14] MEDS: HYDROmorphone 1 MG/ML Syringe IV PRN (22:01)
[2019-08-15] MEDS: Magnesium Sulfate/Water 2 GM in Premix Bag 1 BAG IV SCH ×3 (01:31→13:30)
[2019-08-15] MEDS: HYDROmorphone 1 MG/ML Syringe IV PRN ×6 (01:31→23:29)
[2019-08-15] MEDS: Acetaminophen Soln 650 MG/20.3 ML UD Cup PO SCH ×4 (06:19→21:32)
[2019-08-15] MEDS: Celecoxib 200 MG Cap PO SCH (07:57)
[2019-08-15] MEDS: Heparin Sodium 5,000 Units/ML Vial SUBCUT SCH (07:58)
[2019-08-15] MEDS: Dextrose 5%-Lactated Ringers 1,000 ML IV SCH (08:04)
[2019-08-15] MEDS ORDERED: Dextrose 5%-Lactated Ringers 1,000 ML IV SCH (08:30)
[2019-08-15] MEDS ORDERED: LORazepam 2 MG/ML SDV IV PRN (08:31)
[2019-08-15] MEDS ORDERED: Furosemide 20 MG/2 ML VIAL IV ONE (09:30)
[2019-08-15] MEDS: Losartan 50 MG Tab PO SCH (09:34)
[2019-08-15] MEDS: Gabapentin 250 MG/5 ML Solution ML 470 ML Bottle PO SCH ×3 (09:35→21:32)
[2019-08-15] MEDS: Sertraline 50 MG Tab PO SCH (09:35)
[2019-08-15] MEDS: VERIFY SCOP PATCH TOP SCH (09:35)
[2019-08-15] MEDS: Pantoprazole 40 MG Vial IVPUSH SCH (17:15)
[2019-08-15] MEDS: MVI, Adult with Vitamin K 10 ML, Thiamine 200 MG, Chromium/Copper/Mang/Selen/Zn 1 ML in... IV SCH ×4 (17:15)
[2019-08-15] MEDS: Ondansetron 4 MG/2 ML SDV IV PRN (20:07)
--- NOTE | 2019-08-15 20:32 | PN ---
DATE OF SERVICE: 08/15/2019 The patient has been afebrile with stable vital signs. Still not moving her bowels. Is passing a little bit of gas. Her abdominal exam is unremarkable. Her respiratory status appears to be fairly stable as well. She has quite a bit of edema. I think we will give her some IV Lasix today and back down the IV rate. She appears to be beginning to tolerate some liquid intake, and we will have her basis with that. If tomorrow morning, we are still not able to get adequate oral intake, we will proceed with an upper endoscopy and gentle dilation of gastrojejunostomy. However, she is somewhat anxious, being offered Zoloft. We will add some Ativan IV for anxiety control. One way or the other way, she will be able to likely get the Zoloft restarted tomorrow. Jaya Peraza MD /[id number]
--- NOTE | 2019-08-15 21:05 | PN ---
DATE OF SERVICE: 08/14/2019 Karena continues to have problems with oral intake. Her upper GI x-ray showed quite a bit of edema and nonemptying of the gastrojejunostomy. Given this, we will back down on the oral intake to just try some periodically through the day and then accelerate oral intake if that appears to be opening up. Otherwise, maximize activity and work with pulmonary toilet. Jaya Peraza MD /[id number]
[2019-08-16] MEDS: Heparin Sodium 5,000 Units/ML Vial SUBCUT SCH ×3 (04:03→22:19)
[2019-08-16] MEDS: Acetaminophen Soln 650 MG/20.3 ML UD Cup PO SCH ×2 (04:03→10:35)
[2019-08-16] MEDS ORDERED: Furosemide 20 MG/2 ML VIAL IVPUSH ONE (08:00)
[2019-08-16] MEDS: Metoclopramide 10 MG/2 ML SDV IVPUSH PRN (08:03)
[2019-08-16] MEDS: HYDROmorphone 1 MG/ML Syringe IV PRN ×2 (08:03→11:06)
[2019-08-16] MEDS: Gabapentin 250 MG/5 ML Solution ML 470 ML Bottle PO SCH ×2 (08:13→14:49)
[2019-08-16] MEDS: Losartan 50 MG Tab PO SCH (08:13)
[2019-08-16] MEDS: Celecoxib 200 MG Cap PO SCH (08:13)
[2019-08-16] MEDS: Sertraline 50 MG Tab PO SCH (08:14)
[2019-08-16] MEDS: VERIFY SCOP PATCH TOP SCH (08:14)
[2019-08-16] MEDS ORDERED: Propofol 200 MG/20 ML SDV ONE ×3 (11:57→16:32)
[2019-08-16] MEDS ORDERED: Midazolam 1 MG/ML 2 ML SDV ONE ×2 (11:58→12:19)
[2019-08-16] MEDS ORDERED: fentaNYL 100 MCG/2 ML SDV ONE ×2 (11:58→12:19)
[2019-08-16] MEDS: Glycopyrrolate 0.2 MG/ML 2 ML SDV IVPUSH ONE ×2 (13:32→14:59)
[2019-08-16] MEDS ORDERED: Meropenem 500 MG in Sodium Chloride 0.9% 50 ML IV ONE (15:30)
[2019-08-16] MEDS ORDERED: fentaNYL 100 MCG/2 ML SDV IVPUSH ONE (15:55)
[2019-08-16] MEDS ORDERED: Ketamine 500 MG/5 ML MDV IV SCH (16:30)
[2019-08-16] MEDS ORDERED: Ketamine 50 MG in Sodium Chloride 0.9% 49.5 ML IV SCH (16:30)
[2019-08-16] MEDS ORDERED: Lidocaine 2% 100 MG/5 ML Syringe IVPUSH SCH (16:30)
[2019-08-16] MEDS ORDERED: fentaNYL 250 MCG/5 ML SDV ONE (16:31)
[2019-08-16] MEDS ORDERED: Glycopyrrolate 0.2 MG/ML 5 ML MDV ONE (16:32)
[2019-08-16] MEDS ORDERED: Neostigmine Methylsulfate 1 MG/ML 5 ML Syringe ONE (16:32)
[2019-08-16] MEDS ORDERED: Rocuronium 50 MG/5 ML Vial ONE ×2 (16:32→17:35)
[2019-08-16] MEDS ORDERED: Succinylcholine 200 MG/10 ML MDV ONE (16:32)
[2019-08-16] MEDS ORDERED: Ondansetron 4 MG/2 ML SDV ONE (16:32)
[2019-08-16] MEDS ORDERED: Dexamethasone 4 MG/ML SDV ONE (16:32)
[2019-08-16] MEDS ORDERED: Meropenem 500 MG SDV ONE ×3 (17:02→18:24)
[2019-08-16] MEDS ORDERED: Lactated Ringers 1,000 ML ONE ×2 (17:07→18:35)
[2019-08-16] MEDS ORDERED: Sodium Chloride 0.9% 100 ML ONE (18:23)
[2019-08-16] MEDS ORDERED: Norepinephrine 4 MG/4 ML SDV ONE (20:38)
[2019-08-16] MEDS ORDERED: Dextrose 5% in Water 250 ML ONE (20:41)
[2019-08-16] MEDS ORDERED: Naloxone 0.4 MG/ML SDV IV PRN (21:48)
[2019-08-16] MEDS ORDERED: Sodium Chloride 0.9% 10 ML Syringe IV PRN (21:55)
[2019-08-16] MEDS ORDERED: Norepinephrine 4 MG in Dextrose 5% in Water 246 ML IV SCH ×2 (22:00)
[2019-08-16] MEDS: HYDROmorphone/Normal Saline 15 MG/30 ML PCA IV PRN (22:12)
[2019-08-16] MEDS: Dextrose 5%-Lactated Ringers 1,000 ML IV SCH (22:12)
[2019-08-16] MEDS: Meropenem 500 MG in Sodium Chloride 0.9% 50 ML IV SCH (22:23)
[2019-08-16] MEDS: Albuterol/Ipratropium 3.0-0.5 MG/3 ML Neb Soln INH SCH (22:30)
[2019-08-16] MEDS: Lidocaine 0.4%/D5W 2 GM/500 ML BAG IV SCH (22:32)
[2019-08-16] MEDS: Pantoprazole 40 MG Vial IVPUSH SCH (22:51)
[2019-08-17] MEDS: Heparin Sodium 5,000 UNITS in Sodium Chloride 0.9% 500 ML IV SCH (00:02)
[2019-08-17] MEDS: Lactated Ringers 500 ML IV SCH ×2 (01:55→08:40)
[2019-08-17] MEDS: Dextrose 5%-Lactated Ringers 1,000 ML IV SCH ×4 (03:40→19:14)
[2019-08-17] MEDS: Meropenem 500 MG in Sodium Chloride 0.9% 50 ML IV SCH ×4 (04:50→22:18)
[2019-08-17] MEDS ORDERED: Lactated Ringers 500 ML IV SCH ×6 (05:45→18:00)
[2019-08-17] MEDS: Norepinephrine 4 MG in Dextrose 5% in Water 246 ML IV SCH ×4 (05:47→14:12)
[2019-08-17] MEDS: Albuterol/Ipratropium 3.0-0.5 MG/3 ML Neb Soln INH SCH ×4 (07:04→21:17)
--- NOTE | 2019-08-17 07:45 | PN ---
DATE OF SERVICE: 08/16/2019 SUBJECTIVE: Karena is a 63-year-old female. She continues to be nauseated and has dry heaves. The Ativan is helping with anxiety. She appears to be short of breath but states she is taking deep breaths to breathe in a cotton ball that is dipped in peppermint for nausea. Oral intake has been just sips of ice and urine output 1750. HARRISON drains have put out 3, 3, and 45 respectively. REVIEW OF SYSTEMS: Remainder of review of systems negative for any pertinent positives and negatives. OBJECTIVE: GENERAL: Karena Thornton is a 63-year-old female, color flushed. VITAL SIGNS: TPR is 99.5, 71, 18. Blood pressure 152/76. HEENT: Negative. NECK: Supple. HEART: Regular rate and rhythm. LUNGS: Clear. ABDOMEN: Dressings dry and intact. Abdominal binder is on. EXTREMITIES: Without peripheral edema. ASSESSMENT: A. Dysphagia. B. Exploratory laparotomy with lysis of adhesions and: 1. Revision of the jejunojejunostomy component of the Pati-en-Y gastric bypass surgery. 2. Separate small-bowel resection. 3. Repair of incarcerated incisional hernia. 4. Repair of incarcerated umbilical hernia. PLAN: 1. Discontinue Accu-Cheks. 2. Lasix 20 mg IV now. 3. Check CBC, CMP, mag, phos, and BNP in a.m. 4. We will evaluate p.r.n. or in a.m. If no improvement in dysphagia, we will do EGD with dilatation. Kenia Valencia PA-C /[id number]
[2019-08-17] MEDS: Linezolid 600 MG in Premix Bag 1 BAG IV SCH ×2 (08:43→21:17)
[2019-08-17] MEDS: MVI, Adult with Vitamin K 10 ML, Thiamine 200 MG, Chromium/Copper/Mang/Selen/Zn 1 ML in... IV SCH ×8 (09:08→13:38)
[2019-08-17] MEDS: Heparin Sodium 5,000 Units/ML Vial SUBCUT SCH ×3 (09:51→22:18)
[2019-08-17] MEDS: Acetaminophen Soln 650 MG/20.3 ML UD Cup PO SCH ×2 (13:38→13:39)
[2019-08-17] MEDS: Gabapentin 250 MG/5 ML Solution ML 470 ML Bottle PO SCH (13:39)
[2019-08-17] MEDS ORDERED: MVI, Adult with Vitamin K 10 ML, Thiamine 200 MG, Chromium/Copper/Mang/Selen/Zn 1 ML in... IV SCH ×4 (16:00)
[2019-08-17] MEDS: Lidocaine 0.4%/D5W 2 GM/500 ML BAG IV SCH (16:42)
[2019-08-17] MEDS: Pantoprazole 40 MG Vial IVPUSH SCH (16:47)
--- NOTE | 2019-08-17 17:34 | PCM.CONS ---
H&P History of Present Illness - General Date of Service: 08/17/19 Admit Problem/Dx: Admission Diagnosis/Problem Admission Diagnosis/Problem Bariatric operative procedure Source of Information: Patient, Old Records, Provider, RN Notes Reviewed History Limitations: Reports: No Limitations - History of Present Illness Initial Comments - Free Text/Narative: Ms. Thornton is a 63-year-old woman who I been asked to see by Dr. Peraza for assistance in postoperative medical management. She underwent her initial bariatric surgery last week. Yesterday it had ongoing difficulty with nausea vomiting as well as elevated white blood cell count. EGD was performed and showed evidence of a gastric perforation. She was taken back to the operating room yesterday for exploratory laparotomy and repair of the perforation. Post operative course has been complicated by hypotension and decreased urine output with associated acute kidney injury. She is receiving IV fluids as well as low dose norepinephrine. Blood pressure has been stable over the past several hours. She denies any symptoms of chest pain or pressure or significant shortness of breath. Abdomen Pain Score (Numeric/FACES): 2 - Related Data Allergies/Adverse Reactions: Allergies Allergy/AdvReac Type Severity Reaction Status Date / Time cephalexin Allergy Hives Verified 01/28/19 09:37 glipizide Allergy Swelling Verified 01/28/19 09:37 iodine Allergy Cannot Verified 01/28/19 09:37 Remember lisinopril Allergy Cannot Verified 01/28/19 09:37 Remember niacin Allergy Cannot Verified 01/28/19 09:37 Remember oxycodone Allergy Itching Verified 01/28/19 09:37 simvastatin Allergy Swelling Verified 01/28/19 09:37 sodium fluoride Allergy Cannot Verified 01/28/19 09:37 Remember Jesyaga-Gsj-Vai Reductase Allergy Cannot Verified 01/28/19 09:37 Inhibitor Remember metformin AdvReac Diarrhea Verified 08/13/19 07:34 Home Medications: Home Meds Albuterol Sulfate [Proair Respiclick] 2 puff INH Q4HR PRN 01/21/19 [History] Aspirin [Adult Low Dose Aspirin EC] 81 mg PO DAILY 01/21/19 [History] Cyclobenzaprine [Flexeril] 10 mg PO TID PRN 01/21/19 [History] EPINEPHrine [Epipen 2-Yunior] 0.3 mg IM ASDIRECTED PRN 01/21/19 [History] Esomeprazole Magnesium [Nexium] 40 mg PO DAILY 01/21/19 [History] Losartan [Cozaar] 50 mg PO DAILY 01/21/19 [History] Multivit-Min/Iron Fum/Folic AC [Ojfwu-Ojvpicj-Bhfregef Tablet] 2 tab PO DAILY [History] Sertraline [Zoloft] 150 mg PO DAILY 01/21/19 [History] traMADol [Ultram] 50 mg PO Q6H PRN 01/22/19 [History] Cholecalciferol (Vitamin D3) [Vitamin D3] 2,000 unit PO DAILY 01/28/19 [History] Acetaminophen [Tylenol Solution] 650 mg PO Q6H PRN #100 ml 01/30/19 [Rx] Calcium Carbonate/Vitamin D3 [Calcium 500 mg Chewable Tablet] 1 tab PO BID 08/06 [History] Cyanocobalamin (Vitamin B-12) [Vitamin B-12] 1 tab SL DAILY 08/06/19 [History] Ondansetron [Zofran ODT] 1 tab SL Q8HR 08/06/19 [History] Vit C/E/Zn/Coppr/Lutein/Zeaxan [Preservision Areds 2 Softgel] 2 each PO DAILY [History] Vitamin B Complex [B Complex] 1 each PO DAILY 08/06/19 [History] Past Medical History HEENT History: Reports: Impaired Vision Other HEENT History: wears glasses Cardiovascular History: Reports: High Cholesterol Respiratory History: Reports: Asthma Gastrointestinal History: Reports: Hiatal Hernia, Other (See Below) Other Gastrointestinal History: umbilical hernia [employer] History: Reports: Endometriosis, Fibroids, Musculoskeletal History: Reports: Arthritis Neurological History: Reports: Brain Injury, Migraines, Other (See Below) Other Neuro History: 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 Psychiatric History: Reports: Depression Endocrine/Metabolic History: Reports: Obesity/BMI 30+ - Infectious Disease History Infectious Disease History: Reports: Chicken Pox, Measles - Past Surgical History HEENT Surgical History: Reports: Tonsillectomy, Other (See Below) Other HEENT Surgeries/Procedures: Oral Bridge x2 Cardiovascular Surgical History: Reports: None Respiratory Surgical History: Reports: None GI Surgical History: Reports: Bariatric Procedure, Colonoscopy Female Surgical History: Reports: Hysterectomy, Oophorectomy, Tubal Ligation Endocrine Surgical History: Reports: None Neurological Surgical History: Reports: Other (See Below) Other Neurological Surgeries/Procedures: spinal stenosis Musculoskeletal Surgical History: Reports: Arthroscopic Knee Other Musculoskeletal Surgeries/Procedures:: scope left knee-hardware inplace Social & Family History - Family History Family Medical History: Noncontributory - Tobacco Use Smoking Status *Q: Former Smoker Used Tobacco, but Quit: Yes Month/Year Tobacco Last Used: 1996 Second Hand Smoke Exposure: No - Caffeine Use Caffeine Use: Reports: Coffee - Recreational Drug Use Recreational Drug Use: No H&P Review of Systems - Review of Systems: Review Of Systems: See Below General: Reports: Malaise, Weakness. Denies: Fever, Chills Pulmonary: Reports: No Symptoms Cardiovascular: Reports: No Symptoms Gastrointestinal: Reports: Abdominal Pain. Denies: Difficulty Swallowing, Distension, Nausea, Vomiting Genitourinary: Reports: No Symptoms Exam - Exam Exam: See Below - Vital Signs Vital Signs: Last Vital Signs Temp 98.1 F 08/17/19 17:00 Pulse 84 08/17/19 17:00 Resp 21 H 08/17/19 17:00 BP 105/58 L 08/17/19 17:00 Pulse Ox 95 08/17/19 17:00 Weight: 349 lb - Exam Quality Assessment: Supplemental Oxygen, Urinary Catheter, DVT Prophylaxis General: Alert, Oriented, Cooperative, Moderate Distress Neck: Supple, Trachea Midline, +2 Carotid Pulse wo Bruit Lungs: Clear to Auscultation, Normal Respiratory Effort Cardiovascular: Regular Rate, Regular Rhythm, Normal S1, Normal S2. No: Systolic Murmur, Diastolic Murmur Extremities: Non-Tender, Pedal Edema - Patient Data Lab Results Last 24 hrs: Laboratory Results - last 24 hr 08/17/19 08/17/19 08/17/19 Range/Units 04:00 04:00 17:00 WBC 23.9 H (4.5-11.0) K/uL RBC 3.42 (3.30-5.50) M/uL Hgb 9.5 L (12.0-15.0) g/dL Hct 32.3 L (36.0-48.0) % MCV 94 (80-98) fL MCH 28 (27-31) pg MCHC 29 L (32-36) % Plt Count 533 H (150-400) K/uL Neut % (Auto) 92 H (36-66) % Lymph % (Auto) 3 L (24-44) % [place] % (Auto) 5 (2-6) % Eos % (Auto) 0 L (2-4) % Baso % (Auto) 0 (0-1) % Sodium 145 140 (140-148) mmol/L Potassium 4.0 3.8 (3.6-5.2) mmol/L Chloride 108 104 (100-108) mmol/L Carbon Dioxide 28 28 (21-32) mmol/L Anion Gap 8.6 8.1 (5.0-14.0) mmol/L BUN 20 H D 24 H (7-18) mg/dL Creatinine 2.1 H D 2.5 H (0.6-1.0) mg/dL Est Cr Clr Drug Dosing 24.29 20.41 mL/min Estimated GFR (MDRD) 24 L 20 L (>60) Glucose 160 H 151 H (74-106) mg/dL Calcium 7.3 L 6.9 L* (8.5-10.1) mg/dL Phosphorus 3.8 (2.5-4.9) mg/dL Magnesium 2.0 D (1.8-2.4) mg/dL Total Bilirubin 1.5 H D (0.2-1.0) mg/dL AST 151 H D (15-37) U/L ALT 139 H (12-78) U/L Alkaline Phosphatase 84 (46-116) U/L NT-Pro-B Natriuret Pep 747 H (5-125) pg/mL Total Protein 5.5 L (6.4-8.2) g/dL Albumin 1.6 L (3.4-5.0) g/dL Globulin 3.9 H (2.3-3.5) g/dL Albumin/Globulin Ratio 0.4 L (1.2-2.2) Result Diagrams: 08/17/19 04:00 08/17/19 17:00 Wero Results Last 24 hrs: Microbiology 08/16/19 17:48 Gram Stain - Final Abdomen - Drainage 08/16/19 17:05 Gram Stain - Final Abdomen - Abscess Consult PN Assessment/Plan Procedures: Procedures AIRWAY INHALATION TREATMENT (01/28/19) ASSAY OF MAGNESIUM (01/28/19) ASSAY OF NATRIURETIC PEPTIDE (01/28/19) ASSAY OF PHOSPHORUS (01/28/19) BLOOD TYPING SEROLOGIC ABO (01/28/19) BLOOD TYPING SEROLOGIC RH(D) (01/28/19) COMPLETE CBC W/AUTO DIFF WBC (01/28/19) COMPREHEN METABOLIC PANEL (01/28/19) CULTURE SCREEN ONLY (01/22/19) EGD BIOPSY SINGLE/MULTIPLE (01/22/19) FLUOROSCOPY <1 HR PHYS/QHP (01/28/19) GLUCOSE BLOOD TEST (01/28/19) MEASURE BLOOD OXYGEN LEVEL (01/28/19) RBC ANTIBODY SCREEN (01/28/19) ROUTINE VENIPUNCTURE (01/28/19) X-RAY UPPER GI DELAY W/O KUB (01/28/19) Problem List Initiated/Reviewed/Updated: Yes Plan: ASSESSMENT AND RECOMMENDATIONS ACUTE KIDNEY INJURY-secondary to hypotension and poor renal perfusion. Blood pressure is now stabilized with IV fluids and low dose norepinephrine. Expect the kidney function should plateau over the next 24 hours and then slowly improve. -Maintain mean arterial pressure of greater than 65 -Closely monitor urine output and renal function HYPOTENSION-secondary to sepsis associated with gastric perforation -Continue current antibiotic therapy -Fluids and norepinephrine as needed to maintain MAP STATUS POST EXPLORATORY LAPAROTOMY FOR GASTRIC PERFORATION -Postop care per Dr. Peraza Requesting Provider: JUAN Date Consult Requested: 08/17/19 Reason for Consult: Postoperative medical management Patient History Reviewed: Yes Admission H&P Reviewed: Yes
[2019-08-17] MEDS ORDERED: Lactated Ringers 500 ML IV ONE (19:30)
[2019-08-17] MEDS ORDERED: Furosemide 20 MG/2 ML VIAL IVPUSH STA (21:05)
[2019-08-17] MEDS ORDERED: Furosemide 20 MG/2 ML VIAL ONE (21:15)
[2019-08-17] MEDS: HYDROmorphone/Normal Saline 15 MG/30 ML PCA IV PRN (22:31)
[2019-08-18] MEDS ORDERED: Furosemide 20 MG/2 ML VIAL IVPUSH STA (01:13)
[2019-08-18] MEDS: Dextrose 5%-Lactated Ringers 1,000 ML IV SCH ×4 (01:47→22:27)
[2019-08-18] MEDS: Albuterol/Ipratropium 3.0-0.5 MG/3 ML Neb Soln INH PRN ×2 (02:06→17:50)
[2019-08-18] MEDS ORDERED: Lactated Ringers 500 ML IV SCH ×2 (03:15→05:15)
[2019-08-18] MEDS: Albuterol/Ipratropium 3.0-0.5 MG/3 ML Neb Soln INH SCH ×4 (07:29→20:14)
[2019-08-18] MEDS ORDERED: Bumetanide 1 MG/4 ML MDV IVPUSH ONE ×2 (08:49→23:25)
[2019-08-18] MEDS: Linezolid 600 MG in Premix Bag 1 BAG IV SCH ×2 (09:16→20:13)
[2019-08-18] MEDS: Magnesium Sulfate/Water 2 GM in Premix Bag 1 BAG IV SCH ×3 (09:25→21:12)
--- NOTE | 2019-08-18 09:32 | PCM.CONSN ---
- General Info Date of Service: 08/18/19 Subjective Update: Ms. Thornton continues to experience acute kidney injury with poor urine output. She reports that she is feeling somewhat better today with more energy, denies shortness of breath. Reports pain control is currently adequate. Functional Status: Reports: Pain Controlled - Review of Systems General: Reports: Weakness, Fatigue. Denies: Fever, Chills Pulmonary: Reports: No Symptoms Cardiovascular: Reports: No Symptoms Gastrointestinal: Reports: Abdominal Pain. Denies: Constipation, Diarrhea, Difficulty Swallowing, Nausea, Vomiting - Patient Data Vitals - Most Recent: Last Vital Signs Temp 99 F 08/18/19 09:00 Pulse 95 08/18/19 09:00 Resp 21 H 08/18/19 09:00 BP 95/48 L 08/18/19 09:00 Pulse Ox 93 L 08/18/19 09:00 Weight - Most Recent: 349 lb I&O - Last 24 Hours: Intake & Output 08/17/19 08/18/19 08/18/19 22:59 06:59 14:59 Intake Total 2817 5082 350 Output Total 232 281 32 Balance 2585 4801 318 Lab Results Last 24 Hours: Laboratory Results - last 24 hr 08/17/19 08/18/19 08/18/19 Range/Units 17:00 04:06 04:06 WBC 28.3 H (4.5-11.0) K/uL RBC 2.99 L (3.30-5.50) M/uL Hgb 8.0 L (12.0-15.0) g/dL Hct 28.3 L (36.0-48.0) % MCV 95 (80-98) fL MCH 27 (27-31) pg MCHC 28 L (32-36) % Plt Count 511 H (150-400) K/uL Sodium 140 138 L (140-148) mmol/L Potassium 3.8 4.0 (3.6-5.2) mmol/L Chloride 104 104 (100-108) mmol/L Carbon Dioxide 28 27 (21-32) mmol/L Anion Gap 8.1 11.0 (5.0-14.0) mmol/L BUN 24 H 27 H (7-18) mg/dL Creatinine 2.5 H 3.1 H (0.6-1.0) mg/dL Est Cr Clr Drug Dosing 20.41 16.46 mL/min Estimated GFR (MDRD) 20 L 15 L (>60) Glucose 151 H 164 H (74-106) mg/dL Calcium 6.9 L* 6.7 L* (8.5-10.1) mg/dL POC WB Ioniz Calcium (1.12-1.32) mmol/L Phosphorus 3.8 (2.5-4.9) mg/dL Magnesium 1.7 L (1.8-2.4) mg/dL Total Bilirubin 1.9 H (0.2-1.0) mg/dL AST 65 H (15-37) U/L ALT 101 H (12-78) U/L Alkaline Phosphatase 91 (46-116) U/L Total Protein 5.1 L (6.4-8.2) g/dL Albumin 1.3 L (3.4-5.0) g/dL Globulin 3.8 H (2.3-3.5) g/dL Albumin/Globulin Ratio 0.3 L (1.2-2.2) 08/18/19 Range/Units 04:06 WBC (4.5-11.0) K/uL RBC (3.30-5.50) M/uL Hgb (12.0-15.0) g/dL Hct (36.0-48.0) % MCV (80-98) fL MCH (27-31) pg MCHC (32-36) % Plt Count (150-400) K/uL Sodium (140-148) mmol/L Potassium (3.6-5.2) mmol/L Chloride (100-108) mmol/L Carbon Dioxide (21-32) mmol/L Anion Gap (5.0-14.0) mmol/L BUN (7-18) mg/dL Creatinine (0.6-1.0) mg/dL Est Cr Clr Drug Dosing mL/min Estimated GFR (MDRD) (>60) Glucose (74-106) mg/dL Calcium (8.5-10.1) mg/dL POC WB [facility]iz Calcium 0.85 L* (1.12-1.32) mmol/L Phosphorus (2.5-4.9) mg/dL Magnesium (1.8-2.4) mg/dL Total Bilirubin (0.2-1.0) mg/dL AST (15-37) U/L ALT (12-78) U/L Alkaline Phosphatase (46-116) U/L Total Protein (6.4-8.2) g/dL Albumin (3.4-5.0) g/dL Globulin (2.3-3.5) g/dL Albumin/Globulin Ratio (1.2-2.2) Wero Results Last 24 Hours: Microbiology 08/16/19 17:48 Gram Stain - Final Abdomen - Drainage Wound Culture - Preliminary Anaerobic Culture - Preliminary NO GROWTH AFTER 1 DAY 08/16/19 17:05 Gram Stain - Final Abdomen - Abscess Wound Culture - Preliminary Anaerobic Culture - Preliminary NO GROWTH AFTER 1 DAY Med Orders - Current: Current Medications Albuterol/Ipratropium (Duoneb 3.0-0.5 Mg/3 Ml) 3 ml INH QIDRT [facility] Last Admin: 08/18/19 07:29 Dose: 3 ml Albuterol/Ipratropium (Duoneb 3.0-0.5 Mg/3 Ml) 3 ml INH ASDIRECTED PRN PRN Reason: BREATHING Last Admin: 08/18/19 02:06 Dose: 3 ml Diphenhydramine HCl (Benadryl) 50 mg IVPUSH Q4H PRN PRN Reason: ITCHING Last Admin: 08/17/19 22:31 Dose: 50 mg Heparin Sodium (Porcine) (Heparin Sodium) 5,000 units SUBCUT Q12H [facility] Last Admin: 08/17/19 22:18 Dose: 5,000 units Hydromorphone HCl (Dilaudid Academic Affairs Director 15 Mg In Ns 30 Ml) 0 mg IV ASDIRECTED PRN; 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 Last Admin: 08/17/19 22:31 Dose: 15 mg Hydroxyzine HCl (Vistaril) 100 mg IM Q4H PRN PRN Reason: pain Last Admin: 08/16/19 20:47 Dose: 100 mg Dextrose/Lactated Ringer's (Dextrose 5%-Lactated Ringers) 1,000 mls @ 200 mls/ hr IV ASDIRECTED [facility] Last Admin: 08/18/19 07:16 Dose: 200 mls/hr Heparin Sodium (Porcine) 5,000 (units/ Sodium Chloride) 501 mls @ 1 mls/hr IV ASDIRECTED [facility] Last Admin: 08/17/19 00:02 Dose: 1 mls/hr Norepinephrine Bitartrate 4 mg (/ Dextrose/Water) 250 mls @ 7.5 mls/hr IV TITRATE [facility]; Protocol Last Titration: 08/18/19 04:09 Dose: 3 mcg/min, 11.25 mls/hr Aztreonam 1 gm/ Sodium (Chloride) 50 mls @ 100 mls/hr IV Q8HR [facility] Last Admin: 08/18/19 05:14 Dose: 100 mls/hr Linezolid 600 mg/ Premix 300 mls @ 300 mls/hr IV Q12H [facility] Last Admin: 08/18/19 09:16 Dose: 300 mls/hr Multivitamins/Minerals 10 ml/Thiamine HCl 200 mg/ Chromium/Copper/Manganese/ Seleni/Zn 1 ml/ Dextrose/Lactated Ringer's 1,013 mls @ 200 mls/hr IV DAILY@ 1000 [facility] Last Admin: 08/17/19 09:08 Dose: 200 mls/hr Meropenem 500 mg/ Sodium (Chloride) 50 mls @ 100 mls/hr IV Q12H [facility] Last Admin: 08/17/19 22:18 Dose: 100 mls/hr Lactated Ringer's (Ringers, Lactated) 500 mls @ 500 mls/hr IV .BOLUS [facility] Last Admin: 08/18/19 03:13 Dose: 500 mls/hr Lactated Ringer's (Ringers, Lactated) 500 mls @ 500 mls/hr IV STAT [facility] Last Admin: 08/18/19 05:18 Dose: 500 mls/hr Magnesium Sulfate 2 gm/ Premix 50 mls @ 25 mls/hr IV Q6H [facility] Stop: 08/20/19 05:59 Last Admin: 08/18/19 09:25 Dose: 25 mls/hr Calcium Gluconate 2 gm/ Sodium (Chloride) 120 mls @ 100 mls/hr IV Q6H [facility] Stop: 08/18/19 17:11 Labetalol HCl (Normodyne) 5 mg IVPUSH Q5M PRN PRN Reason: SBP over 160 OR DBP over 95 Metoclopramide HCl (Reglan) 10 mg IVPUSH Q6H PRN PRN Reason: NAUSEA NOT CONTROL BY ZOFRAN Last Admin: 08/16/19 08:03 Dose: 10 mg Naloxone HCl (Narcan) 0.1 mg IV ASDIRECTED PRN PRN Reason: decreased respiratory rate Ondansetron HCl (Zofran) 4 mg IV Q4H PRN PRN Reason: Nausea/Vomiting Last Admin: 08/15/19 20:07 Dose: 4 mg Pantoprazole Sodium (Protonix Iv) 40 mg IVPUSH Q24H [facility] Last Admin: 08/17/19 16:47 Dose: 40 mg Sodium Chloride (Saline Flush) 10 ml IV ASDIRECTED 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 Acetaminophen (Tylenol) 650 mg PO Q6H [facility] Last Admin: 08/12/19 17:42 Dose: 650 mg Acetaminophen (Tylenol) 650 mg PO Q6H [facility] Last Admin: 08/17/19 13:39 Dose: Not Given Albuterol/Ipratropium (Duoneb 3.0-0.5 Mg/3 Ml) 3 ml INH ONETIME ONE Stop: 08/07/19 10:01 Last Admin: 08/07/19 09:28 Dose: 3 ml Albuterol/Ipratropium (Duoneb 3.0-0.5 Mg/3 Ml) 3 ml INH QIDRT [facility] Last Admin: 08/14/19 07:33 Dose: Not Given Albuterol/Ipratropium (Duoneb 3.0-0.5 Mg/3 Ml) 3 ml INH ASDIRECTED PRN PRN Reason: BREATHING Albuterol/Ipratropium (Duoneb 3.0-0.5 Mg/3 Ml) 3 ml INH Q6H PRN PRN Reason: Shortness of Breath Bumetanide (Bumex) 1 mg IVPUSH ONETIME ONE Stop: 08/18/19 08:50 Last Admin: 08/18/19 09:19 Dose: 1 mg Bupivacaine HCl/Epinephrine Bitart (Marcaine 0.5%/Epinephrine 1:200,000) Confirm Administered Dose 50 ml .ROUTE .STK-MED ONE Stop: 08/07/19 07:03 Celecoxib (Celebrex) 200 mg PO DAILY@0800 [facility] Last Admin: 08/16/19 08:13 Dose: Not Given Ropivacaine 60 ml/Dexamethasone 8 mg/Epinephrine HCl 0.4 mg/ Sodium Chloride 17.6 ml 0 ml NERVRT ASDIRECTED [facility] Last Admin: 08/07/19 10:28 Dose: 80 syringe Ropivacaine 60 ml/Dexamethasone 8 mg/Epinephrine HCl 0.4 mg/ Sodium Chloride 17.6 ml 0 ml NERVRT ASDIRECTED [facility] Last Admin: 08/12/19 12:00 Dose: 80 syringe Ropivacaine 60 ml/Dexamethasone 8 mg/Epinephrine HCl 0.4 mg/ Sodium Chloride 17.6 ml [facility] Last Admin: 08/16/19 17:15 Dose: 80 syringe Cyanocobalamin (Vitamin B12) 1,000 mcg IM ONETIME ONE Stop: 08/09/19 09:01 Last Admin: 08/09/19 08:06 Dose: 1,000 mcg Cyanocobalamin (Vitamin B12) 1,000 mcg IM ONETIME ONE Stop: 08/14/19 09:01 Last Admin: 08/14/19 08:01 Dose: 1,000 mcg Cyclobenzaprine HCl (Flexeril) 10 mg PO Q8H PRN PRN Reason: MUSCLE SPASM Dexamethasone (Dexamethasone) Confirm Administered Dose 4 mg .ROUTE .STK-MED ONE Stop: 08/07/19 08:03 Dexamethasone (Dexamethasone) Confirm Administered Dose 4 mg .ROUTE .STK-MED ONE Stop: 08/12/19 09:24 Dexamethasone (Dexamethasone) Confirm Administered Dose 4 mg .ROUTE .STK-MED ONE Stop: 08/16/19 16:33 Dextrose/Water (Dextrose 50% In Water) 50 ml IVPUSH ONETIME PRN PRN Reason: ACCUCHECK LESS THAN 70 Diphenhydramine HCl (Benadryl) 25 - 50 mg PO Q4H PRN PRN Reason: Itching Last Admin: 08/11/19 12:32 Dose: 50 mg Fentanyl (Sublimaze) Confirm Administered Dose 250 mcg .ROUTE .STK-MED ONE Stop: 08/07/19 08:03 Fentanyl (Sublimaze) Confirm Administered Dose 100 mcg .ROUTE .STK-MED ONE Stop: 08/07/19 10:58 Fentanyl (Sublimaze) Confirm Administered Dose 100 mcg .ROUTE .STK-MED ONE Stop: 08/07/19 12:59 Fentanyl (Sublimaze) Confirm Administered Dose 100 mcg .ROUTE .STK-MED ONE Stop: 08/10/19 08:30 Fentanyl (Sublimaze) Confirm Administered Dose 250 mcg .ROUTE .STK-MED ONE Stop: 08/12/19 09:24 Fentanyl (Sublimaze) Confirm Administered Dose 250 mcg .ROUTE .STK-MED ONE Stop: 08/12/19 11:34 Fentanyl (Sublimaze) Confirm Administered Dose 100 mcg .ROUTE .STK-MED ONE Stop: 08/16/19 11:59 Fentanyl (Sublimaze) Confirm Administered Dose 100 mcg .ROUTE .STK-MED ONE Stop: 08/16/19 12:20 Fentanyl (Sublimaze) 100 mcg IVPUSH ONETIME ONE Stop: 08/16/19 15:56 Last Admin: 08/16/19 16:01 Dose: 100 mcg Fentanyl (Sublimaze) Confirm Administered Dose 250 mcg .ROUTE .STK-MED ONE Stop: 08/16/19 16:32 Furosemide (Lasix) 20 mg IV ONETIME ONE Stop: 08/15/19 09:31 Last Admin: 08/15/19 09:01 Dose: 20 mg Furosemide (Lasix) 20 mg IVPUSH ONETIME ONE Stop: 08/16/19 08:01 Last Admin: 08/16/19 08:55 Dose: 20 mg Furosemide (Lasix) 10 mg IVPUSH ONETIME STA Stop: 08/17/19 21:06 Last Admin: 08/17/19 21:19 Dose: 10 mg Furosemide (Lasix) Confirm Administered Dose 20 mg .ROUTE .STK-MED ONE Stop: 08/17/19 21:16 Last Admin: 08/17/19 22:02 Dose: Not Given Furosemide (Lasix) 10 mg IVPUSH ONETIME STA Stop: 08/18/19 01:14 Last Admin: 08/18/19 01:22 Dose: 10 mg Gabapentin (Neurontin) 300 mg PO TID [facility] Last Admin: 08/12/19 15:13 Dose: Not Given Gabapentin (Neurontin) 300 mg PO TID [facility] Last Admin: 08/17/19 13:39 Dose: Not Given Glucagon (Glucagen) 1 mg IM ONETIME PRN PRN Reason: ACCUCHECK LESS THAN 70 Glycopyrrolate (Robinul) Confirm Administered Dose 1 mg .ROUTE .STK-MED ONE Stop: 08/07/19 10:20 Glycopyrrolate (Glycopyrrolate) 0.4 mg IVPUSH ONCALL ONE Stop: 08/10/19 08:31 Last Admin: 08/10/19 11:03 Dose: Not Given Glycopyrrolate (Robinul) Confirm Administered Dose 1 mg .ROUTE .STK-MED ONE Stop: 08/12/19 09:24 Glycopyrrolate (Glycopyrrolate) 0.4 mg IVPUSH ONCALL ONE Stop: 08/16/19 12:01 Last Admin: 08/16/19 14:59 Dose: 0.4 mg Glycopyrrolate (Robinul) Confirm Administered Dose 1 mg .ROUTE .STK-MED ONE Stop: 08/16/19 16:33 Heparin Sodium (Porcine) (Heparin Sodium) 5,000 units SUBCUT Q12H [facility] Last Admin: 08/11/19 05:45 Dose: 5,000 units Heparin Sodium (Porcine) (Heparin Sodium) 5,000 units SUBCUT Q12H [facility] Last Admin: 08/17/19 13:39 Dose: Not Given Heparin Sodium (Porcine) (Heparin Lock Flush 100 Units/Ml) Confirm Administered Dose 500 units .ROUTE .STK-MED ONE Stop: 08/16/19 16:45 Last Admin: 08/17/19 06:30 Dose: 500 units Heparin Sodium (Porcine) (Heparin Lock Flush 100 Units/Ml) Confirm Administered Dose 500 units .ROUTE .STK-MED ONE Stop: 08/16/19 20:12 Hydromorphone HCl (Dilaudid Academic Affairs Director 15 Mg In Ns 30 Ml) 0 mg IV ASDIRECTED PRN; Protocol PRN Reason: Pain Last Admin: 08/06/19 23:30 Dose: 15 mg Hydromorphone HCl (Dilaudid) 0.5 mg IVPUSH Q2H PRN PRN Reason: MODERATE PAIN Last Admin: 08/16/19 13:36 Dose: 0.5 mg Hydromorphone HCl (Dilaudid) 1 mg IV Q2H PRN PRN Reason: SEVERE PAIN Last Admin: 08/16/19 11:06 Dose: 1 mg Hydroxyzine HCl (Vistaril) 100 mg IM ONETIME ONE Stop: 08/07/19 14:03 Last Admin: 08/07/19 14:14 Dose: 100 mg Dextrose/Lactated Ringer's (Dextrose 5%-Lactated Ringers) 1,000 mls @ 125 mls/ hr IV ASDIRECTED [facility] Last Admin: 08/07/19 06:11 Dose: 125 mls/hr Linezolid (Zyvox) Confirm Administered Dose 300 mls @ as directed .ROUTE .STK- MED ONE Stop: 08/07/19 07:03 Lidocaine HCl/Dextrose (Lidocaine 2 Gm/D5w 500 Ml) 2 gm in 500 mls @ 15 mls/hr IV .Q24H [facility] Last Admin: 08/07/19 20:31 Dose: Not Given Ketamine HCl 50 mg/ Sodium (Chloride) 50 mls @ 16.2 mls/hr IV ASDIRECTED [facility] Meropenem 500 mg/ Sodium (Chloride) 50 mls @ 100 mls/hr IV ONETIME ONE Stop: 08/07/19 10:29 Last Admin: 08/07/19 09:28 Dose: 100 mls/hr Lidocaine HCl/Dextrose (Lidocaine 2 Gm/D5w 500 Ml) 2 gm in 500 mls @ 15 mls/hr IV .Q24H [facility] Stop: 08/08/19 11:01 Last Admin: 08/08/19 11:26 Dose: Not Given Dextrose/Lactated Ringer's (Dextrose 5%-Lactated Ringers) 1,000 mls @ 200 mls/ hr IV ASDIRECTED [facility] Stop: 08/08/19 17:59 Last Admin: 08/08/19 04:10 Dose: 200 mls/hr Multivitamins/Minerals 10 ml/Thiamine HCl 200 mg/ Chromium/Copper/Manganese/ Seleni/Zn 1 ml/ Dextrose/Lactated Ringer's 1,013 mls @ 174.999 mls/hr IV DAILY@ 1600 [facility] Last Admin: 08/07/19 17:02 Dose: 174.999 mls/hr Meropenem 500 mg/ Sodium (Chloride) 50 mls @ 100 mls/hr IV Q6H [facility] Stop: 08/08/19 22:29 Last Admin: 08/08/19 15:33 Dose: Not Given Dextrose/Lactated Ringer's (Dextrose 5%-Lr) 500 mls @ 500 mls/hr IV ONETIME ONE Stop: 08/08/19 01:29 Last Admin: 08/08/19 00:44 Dose: Not Given Lactated Ringer's (Ringers, Lactated) 500 mls @ 500 mls/hr IV ONETIME ONE Stop: 08/08/19 01:44 Last Admin: 08/08/19 00:48 Dose: 500 mls/hr Magnesium Sulfate 2 gm/ Premix 50 mls @ 25 mls/hr IV Q6H [facility] Stop: 08/10/19 05:59 Last Admin: 08/08/19 10:18 Dose: 25 mls/hr Dextrose/Lactated Ringer's (Dextrose 5%-Lactated Ringers) 1,000 mls @ 100 mls/ hr IV ASDIRECTED [facility] Potassium Phosphate 22.5 mmole (/ Sodium Chloride) 257.5 mls @ 86 mls/hr IV Q3H [facility] Stop: 08/09/19 15:59 Last Admin: 08/09/19 13:11 Dose: 86 mls/hr Dextrose/Lactated Ringer's (Dextrose 5%-Lactated Ringers) 1,000 mls @ 100 mls/ hr IV ASDIRECTED [facility] Last Admin: 08/11/19 21:16 Dose: 100 mls/hr Lidocaine HCl/Dextrose (Lidocaine 2 Gm/D5w 500 Ml) 2 gm in 500 mls @ 15 mls/hr IV .Q24H [facility] Stop: 08/13/19 14:00 Last Admin: 08/13/19 09:21 Dose: Not Given Ketamine HCl 50 mg/ Sodium (Chloride) 50 mls @ 16.41 mls/hr IV ASDIRECTED [facility] Meropenem 500 mg/ Sodium (Chloride) 50 mls @ 100 mls/hr IV ONCALL ONE Stop: 08/12/19 10:29 Last Admin: 08/12/19 10:31 Dose: 100 mls/hr Lactated Ringer's (Ringers, Lactated) Confirm Administered Dose 1,000 mls @ as directed .ROUTE .STK-MED ONE Stop: 08/12/19 09:29 Dextrose/Lactated Ringer's (Dextrose 5%-Lactated Ringers) 1,000 mls @ 175 mls/ hr IV ASDIRECTED [facility] Last Admin: 08/13/19 06:27 Dose: 175 mls/hr Multivitamins/Minerals 10 ml/Thiamine HCl 200 mg/ Chromium/Copper/Manganese/ Seleni/Zn 1 ml/ Dextrose/Lactated Ringer's 1,013 mls @ 175 mls/hr IV DAILY@ 1600 [facility] Last Admin: 08/13/19 17:37 Dose: 175 mls/hr Meropenem 500 mg/ Sodium (Chloride) 50 mls @ 100 mls/hr IV Q6H [facility] Stop: 08/13/19 22:59 Last Admin: 08/13/19 22:09 Dose: 100 mls/hr Magnesium Sulfate 2 gm/ Premix 50 mls @ 25 mls/hr IV Q6H [facility] Stop: 08/15/19 15:59 Last Admin: 08/15/19 13:30 Dose: 25 mls/hr Dextrose/Lactated Ringer's (Dextrose 5%-Lactated Ringers) 1,000 mls @ 125 mls/ hr IV ASDIRECTED [facility] Last Admin: 08/15/19 08:04 Dose: 125 mls/hr Multivitamins/Minerals 10 ml/Thiamine HCl 200 mg/ Chromium/Copper/Manganese/ Seleni/Zn 1 ml/ Dextrose/Lactated Ringer's 1,013 mls @ 125 mls/hr IV DAILY@ 1100 [facility] Last Admin: 08/14/19 10:50 Dose: 125 mls/hr Dextrose/Lactated Ringer's (Dextrose 5%-Lactated Ringers) 1,000 mls @ 80 mls/ hr IV ASDIRECTED [facility] Last Admin: 08/16/19 06:39 Dose: 80 mls/hr Multivitamins/Minerals 10 ml/Thiamine HCl 200 mg/ Chromium/Copper/Manganese/ Seleni/Zn 1 ml/ Dextrose/Lactated Ringer's 1,013 mls @ 80 mls/hr IV DAILY@1600 [facility] Last Admin: 08/17/19 13:38 Dose: Not Given Meropenem 500 mg/ Sodium (Chloride) 50 mls @ 100 mls/hr IV ONCALL ONE Stop: 08/16/19 15:59 Last Admin: 08/16/19 15:37 Dose: 100 mls/hr Aztreonam 1 gm/ Sodium (Chloride) 50 mls @ 100 mls/hr IV ONETIME ONE Stop: 08/16/19 16:14 Last Admin: 08/16/19 15:51 Dose: 100 mls/hr Ketamine HCl 50 mg/ Sodium (Chloride) 50 mls @ 16.41 mls/hr IV ASDIRECTED [facility] Lidocaine HCl/Dextrose (Lidocaine 2 Gm/D5w 500 Ml) 2 gm in 500 mls @ 15 mls/hr IV .Q24H [facility] Stop: 08/17/19 16:31 Last Admin: 08/17/19 16:42 Dose: Not Given Lactated Ringer's (Ringers, Lactated) Confirm Administered Dose 1,000 mls @ as directed .ROUTE .[facility] ONE Stop: 08/16/19 17:08 Sodium Chloride (Normal Saline) Confirm Administered Dose 100 mls @ as directed .ROUTE .[facility] ONE Stop: 08/16/19 18:24 Last Admin: 08/16/19 22:22 Dose: Not Given Lactated Ringer's (Ringers, Lactated) Confirm Administered Dose 1,000 mls @ as directed .ROUTE .[facility] ONE Stop: 08/16/19 18:36 Dextrose/Water (Dextrose 5% In Water) Confirm Administered Dose 250 mls @ as directed .ROUTE .[facility] ONE Stop: 08/16/19 20:42 Last Admin: 08/16/19 22:22 Dose: Not Given Multivitamins/Minerals 10 ml/Thiamine HCl 200 mg/ Chromium/Copper/Manganese/ Seleni/Zn 1 ml/ Dextrose/Lactated Ringer's 1,013 mls @ 200 mls/hr IV DAILY@ 1600 [facility] Meropenem 500 mg/ Sodium (Chloride) 50 mls @ 100 mls/hr IV Q6H [facility] Last Admin: 08/17/19 09:50 Dose: 100 mls/hr Aztreonam 1 gm/ Sodium (Chloride) 50 mls @ 100 mls/hr IV Q8H [facility] Last Admin: 08/17/19 06:13 Dose: 100 mls/hr Lactated Ringer's (Ringers, Lactated) 500 mls @ 1,000 mls/hr IV .BOLUS [facility] Last Admin: 08/17/19 08:40 Dose: 1,000 mls/hr Lactated Ringer's (Ringers, Lactated) 500 mls @ 999 mls/hr IV .BOLUS [facility] Last Admin: 08/17/19 05:51 Dose: 999 mls/hr Lactated Ringer's (Ringers, Lactated) 500 mls @ 0 mls/hr IV ASDIRECTED [facility] Stop: 08/17/19 08:31 Lactated Ringer's (Ringers, Lactated) 500 mls @ 999 mls/hr IV ASDIRECTED [facility] Stop: 08/17/19 11:16 Last Admin: 08/17/19 10:21 Dose: 999 mls/hr Lactated Ringer's (Ringers, Lactated) 500 mls @ 999 mls/hr IV ASDIRECTED [facility] Stop: 08/17/19 12:46 Last Admin: 08/17/19 12:16 Dose: 999 mls/hr Lactated Ringer's (Ringers, Lactated) 500 mls @ 999 mls/hr IV ASDIRECTED [facility] Stop: 08/17/19 15:01 Last Admin: 08/17/19 14:28 Dose: 999 mls/hr Lactated Ringer's (Ringers, Lactated) 500 mls @ 999 mls/hr IV ASDIRECTED [facility] Stop: 08/17/19 18:31 Last Admin: 08/17/19 17:59 Dose: 999 mls/hr Lactated Ringer's (Ringers, Lactated) 500 mls @ 500 mls/hr IV BOLUS ONE Stop: 08/17/19 20:29 Last Admin: 08/17/19 19:35 Dose: 500 mls/hr Insulin Human Lispro (Humalog) 5 unit SUBCUT ONETIME ONE Stop: 08/07/19 14:01 Last Admin: 08/07/19 15:07 Dose: 5 units Insulin Human Lispro (Humalog) 0 unit SUBCUT Q6H PRN; Protocol PRN Reason: CORRECTIONAL DOSING Last Admin: 08/13/19 04:12 Dose: 9 unit Iopamidol (Isovue-300 (61%)) 50 ml PO ASDIRECTED ONE Stop: 08/08/19 04:27 Last Admin: 08/08/19 04:43 Dose: 50 ml Iopamidol (Isovue-300 (61%)) 20 ml PO ASDIRECTED ONE Stop: 08/13/19 04:21 Last Admin: 08/13/19 04:34 Dose: 20 ml Ketamine HCl (Ketalar) 27 mg IV ASDIRECTED [facility] Ketamine HCl (Ketalar) 27 mg IV ASDIRECTED [facility] Ketamine HCl (Ketalar) 27 mg IV ASDIRECTED [facility] Ketorolac Tromethamine (Toradol) Confirm Administered Dose 60 mg .ROUTE .STK- MED ONE Stop: 08/07/19 08:03 Lidocaine HCl (Xylocaine 2%) 100 mg IVPUSH ASDIRECTED [facility] Lidocaine HCl (Xylocaine 2%) 100 mg IVPUSH ASDIRECTED [facility] Lidocaine HCl (Xylocaine 2%) 100 mg IVPUSH ASDIRECTED [facility] Linezolid (Zyvox) 600 mg IRR .STK-MED ONE Stop: 08/07/19 12:08 Last Admin: 08/07/19 12:07 Dose: 600 mg Lorazepam (Ativan) 0.5 - 1 mg IV Q4H PRN PRN Reason: ANXIETY Last Admin: 08/15/19 09:01 Dose: 1 mg Losartan Potassium (Cozaar) 50 mg PO DAILY [facility] Last Admin: 08/16/19 08:13 Dose: Not Given Meperidine HCl (Demerol) 100 mg IM ONETIME ONE Stop: 08/07/19 14:02 Last Admin: 08/07/19 14:08 Dose: 100 mg Meropenem (Merrem) Confirm Administered Dose 500 mg .ROUTE .STK-MED ONE Stop: 08/07/19 07:03 Last Admin: 08/07/19 12:06 Dose: 500 mg Meropenem (Merrem) Confirm Administered Dose 500 mg .ROUTE .STK-MED ONE Stop: 08/12/19 06:59 Last Admin: 08/12/19 11:25 Dose: 500 mg Meropenem (Merrem) Confirm Administered Dose 500 mg .ROUTE .STK-MED ONE Stop: 08/16/19 17:03 Last Admin: 08/16/19 17:37 Dose: 500 mg Meropenem (Merrem) Confirm Administered Dose 1,500 mg .ROUTE .STK-MED ONE Stop: 08/16/19 18:09 Last Admin: 08/16/19 18:17 Dose: 1,500 mg Meropenem (Merrem) Confirm Administered Dose 500 mg .ROUTE .STK-MED ONE Stop: 08/16/19 18:25 Midazolam HCl (Versed 1 Mg/Ml) Confirm Administered Dose 2 mg .ROUTE .STK-MED ONE Stop: 08/07/19 09:50 Midazolam HCl (Versed 1 Mg/Ml) Confirm Administered Dose 2 mg .ROUTE .STK-MED ONE Stop: 08/10/19 08:30 Midazolam HCl (Versed 1 Mg/Ml) Confirm Administered Dose 2 mg .ROUTE .STK-MED ONE Stop: 08/16/19 11:59 Midazolam HCl (Versed 1 Mg/Ml) Confirm Administered Dose 2 mg .ROUTE .STK-MED ONE Stop: 08/16/19 12:20 Miscellaneous Information (Remove Patch) 1 ea TRDERM ONETIME ONE Stop: 08/09/19 10:01 Last Admin: 08/09/19 11:36 Dose: Not Given Naloxone HCl (Narcan) 0.4 mg IVPUSH Q2M PRN PRN Reason: Respiratory Distress Neostigmine Methylsulfate (Neostigmine) Confirm Administered Dose 5 mg .ROUTE .STK-MED ONE Stop: 08/07/19 11:24 Neostigmine Methylsulfate (Neostigmine) Confirm Administered Dose 5 mg .ROUTE .STK-MED ONE Stop: 08/12/19 09:24 Neostigmine Methylsulfate (Neostigmine) Confirm Administered Dose 5 mg .ROUTE .STK-MED ONE Stop: 08/16/19 16:33 Verify Scop Patch 0 each TOP DAILY [facility] Last Admin: 08/16/19 08:14 Dose: Not Given Norepinephrine Bitartrate (Levophed) Confirm Administered Dose 4 mg .ROUTE .STK- MED ONE Stop: 08/16/19 20:39 Last Admin: 08/16/19 22:22 Dose: Not Given Ondansetron HCl (Zofran) Confirm Administered Dose 4 mg .ROUTE .STK-MED ONE Stop: 08/07/19 08:03 Ondansetron HCl (Zofran) Confirm Administered Dose 4 mg .ROUTE .STK-MED ONE Stop: 08/12/19 09:24 Ondansetron HCl (Zofran) Confirm Administered Dose 4 mg .ROUTE .STK-MED ONE Stop: 08/16/19 16:33 Pantoprazole Sodium (Protonix Iv) 40 mg IVPUSH Q24H [facility] Last Admin: 08/07/19 17:03 Dose: 40 mg Pantoprazole Sodium (Protonix Granules) 40 mg PO DAILY [facility] Last Admin: 08/12/19 08:43 Dose: Not Given Pharmacy Consult (Consult To Pharmacy) 1 each .XX ASDIRECTED [facility] Stop: 08/12/19 16:16 Pharmacy Consult (Consult To Pharmacy) 1 each .XX ASDIRECTED [facility] Stop: 08/17/19 07:30 Piperacillin Sod/Tazobactam Sod (Zosyn) 3.375 gm .XX .STK-MED ONE Stop: 08/16/19 17:14 Piperacillin Sod/Tazobactam Sod (Zosyn) Confirm Administered Dose 3.375 gm .ROUTE .STK-MED ONE Stop: 08/16/19 18:23 Last Admin: 08/16/19 18:29 Dose: Not Given Propofol (Diprivan 20 Ml) Confirm Administered Dose 200 mg .ROUTE .STK-MED ONE Stop: 08/07/19 08:03 Propofol (Diprivan 20 Ml) Confirm Administered Dose 200 mg .ROUTE .STK-MED ONE Stop: 08/10/19 08:30 Propofol (Diprivan 20 Ml) Confirm Administered Dose 200 mg .ROUTE .STK-MED ONE Stop: 08/12/19 09:24 Propofol (Diprivan 20 Ml) Confirm Administered Dose 200 mg .ROUTE .STK-MED ONE Stop: 08/16/19 11:58 Propofol (Diprivan 20 Ml) Confirm Administered Dose 200 mg .ROUTE .STK-MED ONE Stop: 08/16/19 12:20 Propofol (Diprivan 20 Ml) Confirm Administered Dose 200 mg .ROUTE .STK-MED ONE Stop: 08/16/19 16:33 Rocuronium [place] (Zemuron) Confirm Administered Dose 50 mg .ROUTE .STK-MED ONE Stop: 08/07/19 08:03 Rocuronium [place] (Zemuron) Confirm Administered Dose 50 mg .ROUTE .STK-MED ONE Stop: 08/07/19 10:56 Rocuronium [place] (Zemuron) Confirm Administered Dose 50 mg .ROUTE .STK-MED ONE Stop: 08/12/19 09:24 Rocuronium [place] (Zemuron) Confirm Administered Dose 50 mg .ROUTE .STK-MED ONE Stop: 08/12/19 11:55 Rocuronium [place] (Zemuron) Confirm Administered Dose 50 mg .ROUTE .STK-MED ONE Stop: 08/16/19 16:33 Rocuronium [place] (Zemuron) Confirm Administered Dose 50 mg .ROUTE .STK-MED ONE Stop: 08/16/19 17:36 Scopolamine (Transderm-Scop) 1.5 mg TRDERM Q72H PRN PRN Reason: Nausea Last Admin: 08/13/19 09:28 Dose: 1.5 mg Sertraline HCl (Zoloft) 150 mg PO DAILY WERNER Last Admin: 08/16/19 08:14 Dose: Not Given Sodium Chloride (Saline Flush) 10 ml FLUSH ASDIRECTED PRN PRN Reason: Keep Vein Open Succinylcholine Chloride (Quelicin) Confirm Administered Dose 200 mg .ROUTE .STK -MED ONE Stop: 08/07/19 08:07 Succinylcholine Chloride (Quelicin) Confirm Administered Dose 200 mg .ROUTE .STK -MED ONE Stop: 08/12/19 09:24 Succinylcholine Chloride (Quelicin) Confirm Administered Dose 200 mg .ROUTE .STK -MED ONE Stop: 08/16/19 16:33 Tramadol HCl (Ultram) 50 mg PO Q6H PRN PRN Reason: PAIN - Exam Quality Assessment: Supplemental Oxygen, Urine Catheter, DVT Prophylaxis General: Alert, Oriented, Cooperative, Moderate Distress Lungs: Clear to Auscultation, Normal Respiratory Effort Cardiovascular: Regular Rate, Regular Rhythm, No Murmurs GI/Abdominal Exam: Soft, No Organomegaly, Tender. No: Distended, Guarding, Rigid, Rebound Extremities: Non-Tender, Pedal Edema Consult PN Assessment/Plan Procedures: Procedures AIRWAY INHALATION TREATMENT (01/28/19) ASSAY OF MAGNESIUM (01/28/19) ASSAY OF NATRIURETIC PEPTIDE (01/28/19) ASSAY OF PHOSPHORUS (01/28/19) BLOOD TYPING SEROLOGIC ABO (01/28/19) BLOOD TYPING SEROLOGIC RH(D) (01/28/19) COMPLETE CBC W/AUTO DIFF WBC (01/28/19) COMPREHEN METABOLIC PANEL (01/28/19) CULTURE SCREEN ONLY (01/22/19) EGD BIOPSY SINGLE/MULTIPLE (01/22/19) FLUOROSCOPY <1 HR PHYS/QHP (01/28/19) GLUCOSE BLOOD TEST (01/28/19) MEASURE BLOOD OXYGEN LEVEL (01/28/19) RBC ANTIBODY SCREEN (01/28/19) ROUTINE VENIPUNCTURE (01/28/19) X-RAY UPPER GI DELAY W/O KUB (01/28/19) Problem List Initiated/Reviewed/Updated: Yes My Orders Last 24 Hours: My Active Orders 08/18/19 10:00 Calcium Gluconate 2 gm Sodium Chloride 0.9% [Normal Saline] 100 ml IV Q6H 08/18/19 17:00 CALCIUM IONIZED,ISTAT [POC] Stat 08/19/19 04:00 CALCIUM IONIZED,ISTAT [POC] Timed Plan: ASSESSMENT AND RECOMMENDATIONS ACUTE KIDNEY INJURY-secondary to hypotension and poor renal perfusion. Blood pressure is now stabilized with IV fluids and low dose norepinephrine. There has been some worsening of renal function from yesterday with creatinine now at 3.1. -Maintain mean arterial pressure of greater than 65 -Closely monitor urine output and renal function HYPOTENSION-secondary to sepsis associated with gastric perforation -Continue current antibiotic therapy -Fluids and norepinephrine as needed to maintain MAP HYPOCALCEMIA-Ionized calcium from this morning found to be low -Calcium gluconate 2 g IV every 6 hours 2 -Recheck ionized calcium later today and in a.m. STATUS POST EXPLORATORY LAPAROTOMY FOR GASTRIC PERFORATION -Postop care per Dr. Peraza
[2019-08-18] MEDS: Heparin Sodium 5,000 Units/ML Vial SUBCUT SCH ×2 (10:27→21:13)
[2019-08-18] MEDS: Meropenem 500 MG in Sodium Chloride 0.9% 50 ML IV SCH ×2 (10:27→21:15)
[2019-08-18] MEDS: Calcium Gluconate 2 GM in Sodium Chloride 0.9% 100 ML IV SCH ×4 (10:44→23:13)
[2019-08-18] MEDS: MVI, Adult with Vitamin K 10 ML, Thiamine 200 MG, Chromium/Copper/Mang/Selen/Zn 1 ML in... IV SCH ×4 (12:21)
[2019-08-18] MEDS: Norepinephrine 4 MG in Dextrose 5% in Water 246 ML IV SCH ×2 (13:02)
[2019-08-18] MEDS: Pantoprazole 40 MG Vial IVPUSH SCH (15:38)
[2019-08-19] MEDS: HYDROmorphone/Normal Saline 15 MG/30 ML PCA IV PRN ×2 (00:13→22:08)
[2019-08-19] MEDS ORDERED: Benzocaine/Cetylpyridinium/Menthol Lozenge MUCMEM PRN (02:55)
[2019-08-19] MEDS: Magnesium Sulfate/Water 2 GM in Premix Bag 1 BAG IV SCH ×4 (03:09→21:21)
[2019-08-19] MEDS: Albuterol/Ipratropium 3.0-0.5 MG/3 ML Neb Soln INH SCH ×4 (06:29→20:19)
--- NOTE | 2019-08-19 08:44 | PCM.CONSN ---
- General Info Date of Service: 08/19/19 Subjective Update: Ms. Thornton appears to have stabilized somewhat as far as her renal function. Respiratory status has worsened mildly with bilateral expiratory wheezes. Fluids have been decreased. She has remained afebrile, continues to require low dose norepinephrine to maintain adequate blood pressures. Functional Status: Reports: Pain Controlled - Review of Systems General: Reports: Weakness. Denies: Fever, Chills Pulmonary: Reports: Shortness of Breath, Wheezing. Denies: Pleuritic Chest Pain , Cough, Sputum, Hemoptysis Cardiovascular: Reports: Dyspnea on Exertion. Denies: Chest Pain, Palpitations , Orthopnea, PND, Edema Gastrointestinal: Reports: Abdominal Pain. Denies: Difficulty Swallowing, Nausea, Vomiting - Patient Data Vitals - Most Recent: Last Vital Signs Temp 96.6 F 08/19/19 07:00 Pulse 81 08/19/19 08:00 Resp 24 H 08/19/19 08:00 BP 127/69 08/19/19 08:00 Pulse Ox 96 08/19/19 08:00 Weight - Most Recent: 403 lb 12.8 oz I&O - Last 24 Hours: Intake & Output 08/18/19 08/19/19 08/19/19 22:59 06:59 14:59 Intake Total 3559 2717 Output Total 275 370 75 Balance 3284 2347 -75 Lab Results Last 24 Hours: Laboratory Results - last 24 hr 08/18/19 08/18/19 08/18/19 Range/Units 17:00 17:00 18:13 WBC (4.5-11.0) K/uL RBC (3.30-5.50) M/uL Hgb (12.0-15.0) g/dL Hct (36.0-48.0) % MCV (80-98) fL MCH (27-31) pg MCHC (32-36) % Plt Count (150-400) K/uL Sodium 137 L (140-148) mmol/L Potassium 3.8 (3.6-5.2) mmol/L Chloride 102 (100-108) mmol/L Carbon Dioxide 24 (21-32) mmol/L Anion Gap 14.8 H (5.0-14.0) mmol/L BUN 30 H (7-18) mg/dL Creatinine 3.5 H (0.6-1.0) mg/dL Est Cr Clr Drug Dosing 14.58 mL/min Estimated GFR (MDRD) 13 L (>60) Glucose 160 H (74-106) mg/dL Calcium 7.7 L (8.5-10.1) mg/dL POC WB Ioniz Calcium 0.98 L* (1.12-1.32) mmol/L Phosphorus (2.5-4.9) mg/dL Total Bilirubin (0.2-1.0) mg/dL AST (15-37) U/L ALT (12-78) U/L Alkaline Phosphatase (46-116) U/L Total Protein (6.4-8.2) g/dL Albumin (3.4-5.0) g/dL Globulin (2.3-3.5) g/dL Albumin/Globulin Ratio (1.2-2.2) Urine Color Yellow (YELLOW) Urine Appearance Cloudy A (CLEAR) Urine pH 5.0 (5.0-8.0) Ur Specific Brodnax 1.025 (1.008-1.030) Urine Protein 100 H (NEGATIVE) mg/dL Urine Glucose (UA) 100 H (NEGATIVE) mg/dL Urine Ketones Trace H (NEGATIVE) mg/dL Urine Occult Blood Large H (NEGATIVE) Urine Nitrite Negative (NEGATIVE) Urine Bilirubin Moderate H (NEGATIVE) Urine Urobilinogen 2.0 H (0.2-1.0) EU/dL Ur Leukocyte Esterase Small H (NEGATIVE) Urine RBC 40-50 H (0-5) Urine WBC 20-30 H (0-5) Ur Epithelial Cells Not seen Amorphous Sediment Many Urine Bacteria Moderate Urine Mucus Not seen 08/19/19 08/19/19 08/19/19 Range/Units 03:50 04:00 04:00 WBC 27.5 H (4.5-11.0) K/uL RBC 3.06 L (3.30-5.50) M/uL Hgb 8.5 L (12.0-15.0) g/dL Hct 28.7 L (36.0-48.0) % MCV 94 (80-98) fL MCH 28 (27-31) pg MCHC 30 L (32-36) % Plt Count 527 H (150-400) K/uL Sodium 134 L (140-148) mmol/L Potassium 3.7 (3.6-5.2) mmol/L Chloride 101 (100-108) mmol/L Carbon Dioxide 25 (21-32) mmol/L Anion Gap 11.7 (5.0-14.0) mmol/L BUN 30 H (7-18) mg/dL Creatinine 3.5 H (0.6-1.0) mg/dL Est Cr Clr Drug Dosing 14.58 mL/min Estimated GFR (MDRD) 13 L (>60) Glucose 124 H (74-106) mg/dL Calcium 8.0 L (8.5-10.1) mg/dL POC WB Ioniz Calcium 1.00 L* (1.12-1.32) mmol/L Phosphorus 4.5 (2.5-4.9) mg/dL Total Bilirubin 1.9 H (0.2-1.0) mg/dL AST 45 H (15-37) U/L ALT 89 H (12-78) U/L Alkaline Phosphatase 109 (46-116) U/L Total Protein 5.4 L (6.4-8.2) g/dL Albumin 1.3 L (3.4-5.0) g/dL Globulin 4.1 H (2.3-3.5) g/dL Albumin/Globulin Ratio 0.3 L (1.2-2.2) Urine Color (YELLOW) Urine Appearance (CLEAR) Urine pH (5.0-8.0) Ur Specific Brodnax (1.008-1.030) Urine Protein (NEGATIVE) mg/dL Urine Glucose (UA) (NEGATIVE) mg/dL Urine Ketones (NEGATIVE) mg/dL Urine Occult Blood (NEGATIVE) Urine Nitrite (NEGATIVE) Urine Bilirubin (NEGATIVE) Urine Urobilinogen (0.2-1.0) EU/dL Ur Leukocyte Esterase (NEGATIVE) Urine RBC (0-5) Urine WBC (0-5) Ur Epithelial Cells Amorphous Sediment Urine Bacteria Urine Mucus Wero Results Last 24 Hours: Microbiology 08/16/19 17:48 Gram Stain - Final Abdomen - Drainage Wound Culture - Final Morganella Morganii Yeast Isolated Viridans Streptococcus Gram Positive Rods Anaerobic Culture - Preliminary NO GROWTH AFTER 2 DAYS 08/16/19 17:05 Gram Stain - Final Abdomen - Abscess Wound Culture - Final Yeast Isolated Gram Positive Rods Viridans Streptococcus Anaerobic Culture - Preliminary NO GROWTH AFTER 2 DAYS Med Orders - Current: Current Medications Albuterol/Ipratropium (Duoneb 3.0-0.5 Mg/3 Ml) 3 ml INH QIDRT [facility] Last Admin: 08/19/19 06:29 Dose: 3 ml Albuterol/Ipratropium (Duoneb 3.0-0.5 Mg/3 Ml) 3 ml INH ASDIRECTED PRN PRN Reason: BREATHING Last Admin: 08/18/19 17:50 Dose: 3 ml Albuterol/Ipratropium (Duoneb 3.0-0.5 Mg/3 Ml) 3 ml NEB Q2H PRN PRN Reason: wheezing/stridor Benzocaine/Menthol (Cepacol Sore Throat) 1 lozenge MUCMEM ASDIRECTED PRN PRN Reason: sore throat Diphenhydramine HCl (Benadryl) 50 mg IVPUSH Q4H PRN PRN Reason: ITCHING Last Admin: 08/17/19 22:31 Dose: 50 mg Heparin Sodium (Porcine) (Heparin Sodium) 5,000 units SUBCUT Q12H [facility] Last Admin: 08/18/19 21:13 Dose: 5,000 units Hydromorphone HCl (Dilaudid Drywall Hanger Helper 15 Mg In Ns 30 Ml) 0 mg IV ASDIRECTED PRN; 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 Last Admin: 08/19/19 00:13 Dose: 15 mg Hydroxyzine HCl (Vistaril) 100 mg IM Q4H PRN PRN Reason: pain Last Admin: 08/16/19 20:47 Dose: 100 mg Heparin Sodium (Porcine) 5,000 (units/ Sodium Chloride) 501 mls @ 1 mls/hr IV ASDIRECTED [facility] Last Admin: 08/17/19 00:02 Dose: 1 mls/hr Norepinephrine Bitartrate 4 mg (/ Dextrose/Water) 250 mls @ 7.5 mls/hr IV TITRATE [facility]; Protocol Last Admin: 08/18/19 13:02 Dose: 3 mcg/min, 11.25 mls/hr Aztreonam 1 gm/ Sodium (Chloride) 50 mls @ 100 mls/hr IV Q8HR [facility] Last Admin: 08/19/19 05:07 Dose: 100 mls/hr Linezolid 600 mg/ Premix 300 mls @ 300 mls/hr IV Q12H [facility] Last Admin: 08/18/19 20:13 Dose: 300 mls/hr Meropenem 500 mg/ Sodium (Chloride) 50 mls @ 100 mls/hr IV Q12H [facility] Last Admin: 08/18/19 21:15 Dose: 100 mls/hr Magnesium Sulfate 2 gm/ Premix 50 mls @ 25 mls/hr IV Q6H [facility] Stop: 08/20/19 05:59 Last Admin: 08/19/19 03:09 Dose: 25 mls/hr Dextrose/Lactated Ringer's (Dextrose 5%-Lactated Ringers) 1,000 mls @ 25 mls/ hr IV ASDIRECTED [facility] Calcium Gluconate 2 gm/ Sodium (Chloride) 120 mls @ 100 mls/hr IV Q6H [facility] Stop: 08/19/19 16:11 Labetalol HCl (Normodyne) 5 mg IVPUSH Q5M PRN PRN Reason: SBP over 160 OR DBP over 95 Methylprednisolone Sodium Succinate (Solu-Medrol) 40 mg IVPUSH Q6H [facility] Metoclopramide HCl (Reglan) 10 mg IVPUSH Q6H PRN PRN Reason: NAUSEA NOT CONTROL BY ZOFRAN Last Admin: 08/16/19 08:03 Dose: 10 mg Naloxone HCl (Narcan) 0.1 mg IV ASDIRECTED PRN PRN Reason: decreased respiratory rate Ondansetron HCl (Zofran) 4 mg IV Q4H PRN PRN Reason: Nausea/Vomiting Last Admin: 08/15/19 20:07 Dose: 4 mg Pantoprazole Sodium (Protonix Iv) 40 mg IVPUSH Q24H [facility] Last Admin: 08/18/19 15:38 Dose: 40 mg Sodium Chloride (Saline Flush) 10 ml IV ASDIRECTED PRN 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 Discontinued Medications Acetaminophen (Tylenol) 650 mg PO Q6H [facility] Last Admin: 08/12/19 17:42 Dose: 650 mg Acetaminophen (Tylenol) 650 mg PO Q6H [facility] Last Admin: 08/17/19 13:39 Dose: Not Given Albuterol/Ipratropium (Duoneb 3.0-0.5 Mg/3 Ml) 3 ml INH ONETIME ONE Stop: 08/07/19 10:01 Last Admin: 08/07/19 09:28 Dose: 3 ml Albuterol/Ipratropium (Duoneb 3.0-0.5 Mg/3 Ml) 3 ml INH QIDRT [facility] Last Admin: 08/14/19 07:33 Dose: Not Given Albuterol/Ipratropium (Duoneb 3.0-0.5 Mg/3 Ml) 3 ml INH ASDIRECTED PRN PRN Reason: BREATHING Albuterol/Ipratropium (Duoneb 3.0-0.5 Mg/3 Ml) 3 ml INH Q6H PRN PRN Reason: Shortness of Breath Bumetanide (Bumex) 1 mg IVPUSH ONETIME ONE Stop: 08/18/19 08:50 Last Admin: 08/18/19 09:19 Dose: 1 mg Bumetanide (Bumex) 1 mg IVPUSH ONETIME ONE Stop: 08/18/19 23:26 Last Admin: 08/18/19 23:46 Dose: 1 mg Bupivacaine HCl/Epinephrine Bitart (Marcaine 0.5%/Epinephrine 1:200,000) Confirm Administered Dose 50 ml .ROUTE .STK-MED ONE Stop: 08/07/19 07:03 Celecoxib (Celebrex) 200 mg PO DAILY@0800 [facility] Last Admin: 08/16/19 08:13 Dose: Not Given Ropivacaine 60 ml/Dexamethasone 8 mg/Epinephrine HCl 0.4 mg/ Sodium Chloride 17.6 ml 0 ml NERVRT ASDIRECTED [facility] Last Admin: 08/07/19 10:28 Dose: 80 syringe Ropivacaine 60 ml/Dexamethasone 8 mg/Epinephrine HCl 0.4 mg/ Sodium Chloride 17.6 ml 0 ml NERVRT ASDIRECTED [facility] Last Admin: 08/12/19 12:00 Dose: 80 syringe Ropivacaine 60 ml/Dexamethasone 8 mg/Epinephrine HCl 0.4 mg/ Sodium Chloride 17.6 ml 0 ml NERVRT ASDIRECTED [facility] Last Admin: 08/16/19 17:15 Dose: 80 syringe Cyanocobalamin (Vitamin B12) 1,000 mcg IM ONETIME ONE Stop: 08/09/19 09:01 Last Admin: 08/09/19 08:06 Dose: 1,000 mcg Cyanocobalamin (Vitamin B12) 1,000 mcg IM ONETIME ONE Stop: 08/14/19 09:01 Last Admin: 08/14/19 08:01 Dose: 1,000 mcg Cyclobenzaprine HCl (Flexeril) 10 mg PO Q8H PRN PRN Reason: MUSCLE SPASM Dexamethasone (Dexamethasone) Confirm Administered Dose 4 mg .ROUTE .STK-MED ONE Stop: 08/07/19 08:03 Dexamethasone (Dexamethasone) Confirm Administered Dose 4 mg .ROUTE .STK-MED ONE Stop: 08/12/19 09:24 Dexamethasone (Dexamethasone) Confirm Administered Dose 4 mg .ROUTE .STK-MED ONE Stop: 08/16/19 16:33 Dextrose/Water (Dextrose 50% In Water) 50 ml IVPUSH ONETIME PRN PRN Reason: ACCUCHECK LESS THAN 70 Diphenhydramine HCl (Benadryl) 25 - 50 mg PO Q4H PRN PRN Reason: Itching Last Admin: 08/11/19 12:32 Dose: 50 mg Fentanyl (Sublimaze) Confirm Administered Dose 250 mcg .ROUTE .STK-MED ONE Stop: 08/07/19 08:03 Fentanyl (Sublimaze) Confirm Administered Dose 100 mcg .ROUTE .STK-MED ONE Stop: 08/07/19 10:58 Fentanyl (Sublimaze) Confirm Administered Dose 100 mcg .ROUTE .STK-MED ONE Stop: 08/07/19 12:59 Fentanyl (Sublimaze) Confirm Administered Dose 100 mcg .ROUTE .STK-MED ONE Stop: 08/10/19 08:30 Fentanyl (Sublimaze) Confirm Administered Dose 250 mcg .ROUTE .STK-MED ONE Stop: 08/12/19 09:24 Fentanyl (Sublimaze) Confirm Administered Dose 250 mcg .ROUTE .STK-MED ONE Stop: 08/12/19 11:34 Fentanyl (Sublimaze) Confirm Administered Dose 100 mcg .ROUTE .STK-MED ONE Stop: 08/16/19 11:59 Fentanyl (Sublimaze) Confirm Administered Dose 100 mcg .ROUTE .STK-MED ONE Stop: 08/16/19 12:20 Fentanyl (Sublimaze) 100 mcg IVPUSH ONETIME ONE Stop: 08/16/19 15:56 Last Admin: 08/16/19 16:01 Dose: 100 mcg Fentanyl (Sublimaze) Confirm Administered Dose 250 mcg .ROUTE .STK-MED ONE Stop: 08/16/19 16:32 Furosemide (Lasix) 20 mg IV ONETIME ONE Stop: 08/15/19 09:31 Last Admin: 08/15/19 09:01 Dose: 20 mg Furosemide (Lasix) 20 mg IVPUSH ONETIME ONE Stop: 08/16/19 08:01 Last Admin: 08/16/19 08:55 Dose: 20 mg Furosemide (Lasix) 10 mg IVPUSH ONETIME STA Stop: 08/17/19 21:06 Last Admin: 08/17/19 21:19 Dose: 10 mg Furosemide (Lasix) Confirm Administered Dose 20 mg .ROUTE .STK-MED ONE Stop: 08/17/19 21:16 Last Admin: 08/17/19 22:02 Dose: Not Given Furosemide (Lasix) 10 mg IVPUSH ONETIME STA Stop: 08/18/19 01:14 Last Admin: 08/18/19 01:22 Dose: 10 mg Gabapentin (Neurontin) 300 mg PO TID [facility] Last Admin: 08/12/19 15:13 Dose: Not Given Gabapentin (Neurontin) 300 mg PO TID [facility] Last Admin: 08/17/19 13:39 Dose: Not Given Glucagon (Glucagen) 1 mg IM ONETIME PRN PRN Reason: ACCUCHECK LESS THAN 70 Glycopyrrolate (Robinul) Confirm Administered Dose 1 mg .ROUTE .STK-MED ONE Stop: 08/07/19 10:20 Glycopyrrolate (Glycopyrrolate) 0.4 mg IVPUSH ONCALL ONE Stop: 08/10/19 08:31 Last Admin: 08/10/19 11:03 Dose: Not Given Glycopyrrolate (Robinul) Confirm Administered Dose 1 mg .ROUTE .STK-MED ONE Stop: 08/12/19 09:24 Glycopyrrolate (Glycopyrrolate) 0.4 mg IVPUSH ONCALL ONE Stop: 08/16/19 12:01 Last Admin: 08/16/19 14:59 Dose: 0.4 mg Glycopyrrolate (Robinul) Confirm Administered Dose 1 mg .ROUTE .STK-MED ONE Stop: 08/16/19 16:33 Heparin Sodium (Porcine) (Heparin Sodium) 5,000 units SUBCUT Q12H [facility] Last Admin: 08/11/19 05:45 Dose: 5,000 units Heparin Sodium (Porcine) (Heparin Sodium) 5,000 units SUBCUT Q12H [facility] Last Admin: 08/17/19 13:39 Dose: Not Given Heparin Sodium (Porcine) (Heparin Lock Flush 100 Units/Ml) Confirm Administered Dose 500 units .[address] .[facility] ONE Stop: 08/16/19 16:45 Last Admin: 08/17/19 06:30 Dose: 500 units Heparin Sodium (Porcine) (Heparin Lock Flush 100 Units/Ml) Confirm Administered Dose 500 units .[address] .[facility] ONE Stop: 08/16/19 20:12 Hydromorphone HCl (Dilaudid Drywall Hanger Helper 15 Mg In Ns 30 Ml) 0 mg IV ASDIRECTED PRN; Protocol PRN Reason: Pain Last Admin: 08/06/19 23:30 Dose: 15 mg Hydromorphone HCl (Dilaudid) 0.5 mg IVPUSH Q2H PRN PRN Reason: MODERATE PAIN Last Admin: 08/16/19 13:36 Dose: 0.5 mg Hydromorphone HCl (Dilaudid) 1 mg IV Q2H PRN PRN Reason: SEVERE PAIN Last Admin: 08/16/19 11:06 Dose: 1 mg Hydroxyzine HCl (Vistaril) 100 mg IM ONETIME ONE Stop: 08/07/19 14:03 Last Admin: 08/07/19 14:14 Dose: 100 mg Dextrose/Lactated Ringer's (Dextrose 5%-Lactated Ringers) 1,000 mls @ 125 mls/ hr IV ASDIRECTED [facility] Last Admin: 08/07/19 06:11 Dose: 125 mls/hr Linezolid (Zyvox) Confirm Administered Dose 300 mls @ as directed .ROUTE .[facility] ONE Stop: 08/07/19 07:03 Lidocaine HCl/Dextrose (Lidocaine 2 Gm/D5w 500 Ml) 2 gm in 500 mls @ 15 mls/hr IV .Q24H [facility] Last Admin: 08/07/19 20:31 Dose: Not Given Ketamine HCl 50 mg/ Sodium (Chloride) 50 mls @ 16.2 mls/hr IV ASDIRECTED [facility] Meropenem 500 mg/ Sodium (Chloride) 50 mls @ 100 mls/hr IV ONETIME ONE Stop: 08/07/19 10:29 Last Admin: 08/07/19 09:28 Dose: 100 mls/hr Lidocaine HCl/Dextrose (Lidocaine 2 Gm/D5w 500 Ml) 2 gm in 500 mls @ 15 mls/hr IV .Q24H [facility] Stop: 08/08/19 11:01 Last Admin: 08/08/19 11:26 Dose: Not Given Dextrose/Lactated Ringer's (Dextrose 5%-Lactated Ringers) 1,000 mls @ 200 mls/ hr IV ASDIRECTED [facility] Stop: 08/08/19 17:59 Last Admin: 08/08/19 04:10 Dose: 200 mls/hr Multivitamins/Minerals 10 ml/Thiamine HCl 200 mg/ Chromium/Copper/Manganese/ Seleni/Zn 1 ml/ Dextrose/Lactated Ringer's 1,013 mls @ 174.999 mls/hr IV DAILY@ 1600 [facility] Last Admin: 08/07/19 17:02 Dose: 174.999 mls/hr Meropenem 500 mg/ Sodium (Chloride) 50 mls @ 100 mls/hr IV Q6H [facility] Stop: 08/08/19 22:29 Last Admin: 08/08/19 15:33 Dose: Not Given Dextrose/Lactated Ringer's (Dextrose 5%-Lr) 500 mls @ 500 mls/hr IV ONETIME ONE Stop: 08/08/19 01:29 Last Admin: 08/08/19 00:44 Dose: Not Given Lactated Ringer's (Ringers, Lactated) 500 mls @ 500 mls/hr IV ONETIME ONE Stop: 08/08/19 01:44 Last Admin: 08/08/19 00:48 Dose: 500 mls/hr Magnesium Sulfate 2 gm/ Premix 50 mls @ 25 mls/hr IV Q6H [facility] Stop: 08/10/19 05:59 Last Admin: 08/08/19 10:18 Dose: 25 mls/hr Dextrose/Lactated Ringer's (Dextrose 5%-Lactated Ringers) 1,000 mls @ 100 mls/ hr IV ASDIRECTED [facility] Potassium Phosphate 22.5 mmole (/ Sodium Chloride) 257.5 mls @ 86 mls/hr IV Q3H [facility] Stop: 08/09/19 15:59 Last Admin: 08/09/19 13:11 Dose: 86 mls/hr Dextrose/Lactated Ringer's (Dextrose 5%-Lactated Ringers) 1,000 mls @ 100 mls/ hr IV ASDIRECTED [facility] Last Admin: 08/11/19 21:16 Dose: 100 mls/hr Lidocaine HCl/Dextrose (Lidocaine 2 Gm/D5w 500 Ml) 2 gm in 500 mls @ 15 mls/hr IV .Q24H [facility] Stop: 08/13/19 14:00 Last Admin: 08/13/19 09:21 Dose: Not Given Ketamine HCl 50 mg/ Sodium (Chloride) 50 mls @ 16.41 mls/hr IV ASDIRECTED [facility] Meropenem 500 mg/ Sodium (Chloride) 50 mls @ 100 mls/hr IV ONCALL ONE Stop: 08/12/19 10:29 Last Admin: 08/12/19 10:31 Dose: 100 mls/hr Lactated Ringer's (Ringers, Lactated) Confirm Administered Dose 1,000 mls @ as directed .ROUTE .STK-MED ONE Stop: 08/12/19 09:29 Dextrose/Lactated Ringer's (Dextrose 5%-Lactated Ringers) 1,000 mls @ 175 mls/ hr IV ASDIRECTED [facility] Last Admin: 08/13/19 06:27 Dose: 175 mls/hr Multivitamins/Minerals 10 ml/Thiamine HCl 200 mg/ Chromium/Copper/Manganese/ Seleni/Zn 1 ml/ Dextrose/Lactated Ringer's 1,013 mls @ 175 mls/hr IV DAILY@ 1600 [facility] Last Admin: 08/13/19 17:37 Dose: 175 mls/hr Meropenem 500 mg/ Sodium (Chloride) 50 mls @ 100 mls/hr IV Q6H [facility] Stop: 08/13/19 22:59 Last Admin: 08/13/19 22:09 Dose: 100 mls/hr Magnesium Sulfate 2 gm/ Premix 50 mls @ 25 mls/hr IV Q6H [facility] Stop: 08/15/19 15:59 Last Admin: 08/15/19 13:30 Dose: 25 mls/hr Dextrose/Lactated Ringer's (Dextrose 5%-Lactated Ringers) 1,000 mls @ 125 mls/ hr IV ASDIRECTED [facility] Last Admin: 08/15/19 08:04 Dose: 125 mls/hr Multivitamins/Minerals 10 ml/Thiamine HCl 200 mg/ Chromium/Copper/Manganese/ Seleni/Zn 1 ml/ Dextrose/Lactated Ringer's 1,013 mls @ 125 mls/hr IV DAILY@ 1100 [facility] Last Admin: 08/14/19 10:50 Dose: 125 mls/hr Dextrose/Lactated Ringer's (Dextrose 5%-Lactated Ringers) 1,000 mls @ 80 mls/ hr IV ASDIRECTED [facility] Last Admin: 08/16/19 06:39 Dose: 80 mls/hr Multivitamins/Minerals 10 ml/Thiamine HCl 200 mg/ Chromium/Copper/Manganese/ Seleni/Zn 1 ml/ Dextrose/Lactated Ringer's 1,013 mls @ 80 mls/hr IV DAILY@1600 [facility] Last Admin: 08/17/19 13:38 Dose: Not Given Meropenem 500 mg/ Sodium (Chloride) 50 mls @ 100 mls/hr IV ONCALL ONE Stop: 08/16/19 15:59 Last Admin: 08/16/19 15:37 Dose: 100 mls/hr Aztreonam 1 gm/ Sodium (Chloride) 50 mls @ 100 mls/hr IV ONETIME ONE Stop: 08/16/19 16:14 Last Admin: 08/16/19 15:51 Dose: 100 mls/hr Ketamine HCl 50 mg/ Sodium (Chloride) 50 mls @ 16.41 mls/hr IV ASDIRECTED [facility] Lidocaine HCl/Dextrose (Lidocaine 2 Gm/D5w 500 Ml) 2 gm in 500 mls @ 15 mls/hr IV .Q24H [facility] Stop: 08/17/19 16:31 Last Admin: 08/17/19 16:42 Dose: Not Given Lactated Ringer's (Ringers, Lactated) Confirm Administered Dose 1,000 mls @ as directed .ROUTE .STK-MED ONE Stop: 08/16/19 17:08 Sodium Chloride (Normal Saline) Confirm Administered Dose 100 mls @ as directed .ROUTE .STK-MED ONE Stop: 08/16/19 18:24 Last Admin: 08/16/19 22:22 Dose: Not Given Lactated Ringer's (Ringers, Lactated) Confirm Administered Dose 1,000 mls @ as directed .ROUTE .STK-MED ONE Stop: 08/16/19 18:36 Dextrose/Water (Dextrose 5% In Water) Confirm Administered Dose 250 mls @ as directed .ROUTE .STK-MED ONE Stop: 08/16/19 20:42 Last Admin: 08/16/19 22:22 Dose: Not Given Dextrose/Lactated Ringer's (Dextrose 5%-Lactated Ringers) 1,000 mls @ 200 mls/ hr IV ASDIRECTED [facility] Last Admin: 08/18/19 22:27 Dose: 200 mls/hr Multivitamins/Minerals 10 ml/Thiamine HCl 200 mg/ Chromium/Copper/Manganese/ Seleni/Zn 1 ml/ Dextrose/Lactated Ringer's 1,013 mls @ 200 mls/hr IV DAILY@ 1600 [facility] Meropenem 500 mg/ Sodium (Chloride) 50 mls @ 100 mls/hr IV Q6H [facility] Last Admin: 08/17/19 09:50 Dose: 100 mls/hr Aztreonam 1 gm/ Sodium (Chloride) 50 mls @ 100 mls/hr IV Q8H [facility] Last Admin: 08/17/19 06:13 Dose: 100 mls/hr Lactated Ringer's (Ringers, Lactated) 500 mls @ 1,000 mls/hr IV .BOLUS [facility] Last Admin: 08/17/19 08:40 Dose: 1,000 mls/hr Lactated Ringer's (Ringers, Lactated) 500 mls @ 999 mls/hr IV .BOLUS [facility] Last Admin: 08/17/19 05:51 Dose: 999 mls/hr Lactated Ringer's (Ringers, Lactated) 500 mls @ 0 mls/hr IV ASDIRECTED [facility] Stop: 08/17/19 08:31 Multivitamins/Minerals 10 ml/Thiamine HCl 200 mg/ Chromium/Copper/Manganese/ Seleni/Zn 1 ml/ Dextrose/Lactated Ringer's 1,013 mls @ 200 mls/hr IV DAILY@ 1000 [facility] Last Admin: 08/18/19 12:21 Dose: 200 mls/hr Lactated Ringer's (Ringers, Lactated) 500 mls @ 999 mls/hr IV ASDIRECTED [facility] Stop: 08/17/19 11:16 Last Admin: 08/17/19 10:21 Dose: 999 mls/hr Lactated Ringer's (Ringers, Lactated) 500 mls @ 999 mls/hr IV ASDIRECTED [facility] Stop: 08/17/19 12:46 Last Admin: 08/17/19 12:16 Dose: 999 mls/hr Lactated Ringer's (Ringers, Lactated) 500 mls @ 999 mls/hr IV ASDIRECTED [facility] Stop: 08/17/19 15:01 Last Admin: 08/17/19 14:28 Dose: 999 mls/hr Lactated Ringer's (Ringers, Lactated) 500 mls @ 999 mls/hr IV ASDIRECTED [facility] Stop: 08/17/19 18:31 Last Admin: 08/17/19 17:59 Dose: 999 mls/hr Lactated Ringer's (Ringers, Lactated) 500 mls @ 500 mls/hr IV BOLUS ONE Stop: 08/17/19 20:29 Last Admin: 08/17/19 19:35 Dose: 500 mls/hr Lactated Ringer's (Ringers, Lactated) 500 mls @ 500 mls/hr IV .BOLUS [facility] Last Admin: 08/18/19 03:13 Dose: 500 mls/hr Lactated Ringer's (Ringers, Lactated) 500 mls @ 500 mls/hr IV STAT WERNER Last Admin: 08/18/19 05:18 Dose: 500 mls/hr Calcium Gluconate 2 gm/ Sodium (Chloride) 120 mls @ 100 mls/hr IV Q6H WERNER Stop: 08/18/19 17:11 Last Admin: 08/18/19 15:38 Dose: 100 mls/hr Calcium Gluconate 2 gm/ Sodium (Chloride) 120 mls @ 60 mls/hr IV Q6H WERNER Stop: 08/19/19 01:44 Last Admin: 08/18/19 23:13 Dose: 60 mls/hr Insulin Human Lispro (Humalog) 5 unit SUBCUT ONETIME ONE Stop: 08/07/19 14:01 Last Admin: 08/07/19 15:07 Dose: 5 units Insulin Human Lispro (Humalog) 0 unit SUBCUT Q6H PRN; Protocol PRN Reason: CORRECTIONAL DOSING Last Admin: 08/13/19 04:12 Dose: 9 unit Iopamidol (Isovue-300 (61%)) 50 ml PO ASDIRECTED ONE Stop: 08/08/19 04:27 Last Admin: 08/08/19 04:43 Dose: 50 ml Iopamidol (Isovue-300 (61%)) 20 ml PO ASDIRECTED ONE Stop: 08/13/19 04:21 Last Admin: 08/13/19 04:34 Dose: 20 ml Ketamine HCl (Ketalar) 27 mg IV ASDIRECTED [facility] Ketamine HCl (Ketalar) 27 mg IV ASDIRECTED WERNER Ketamine HCl (Ketalar) 27 mg IV ASDIRECTED [facility] Ketorolac Tromethamine (Toradol) Confirm Administered Dose 60 mg .ROUTE .STK- MED ONE Stop: 08/07/19 08:03 Lidocaine HCl (Xylocaine 2%) 100 mg IVPUSH ASDIRECTED WERNER Lidocaine HCl (Xylocaine 2%) 100 mg IVPUSH ASDIRECTED WERNER Lidocaine HCl (Xylocaine 2%) 100 mg IVPUSH ASDIRECTED [facility] Linezolid (Zyvox) 600 mg IRR .STK-MED ONE Stop: 08/07/19 12:08 Last Admin: 08/07/19 12:07 Dose: 600 mg Lorazepam (Ativan) 0.5 - 1 mg IV Q4H PRN PRN Reason: ANXIETY Last Admin: 08/15/19 09:01 Dose: 1 mg Losartan Potassium (Cozaar) 50 mg PO DAILY [facility] Last Admin: 08/16/19 08:13 Dose: Not Given Meperidine HCl (Demerol) 100 mg IM ONETIME ONE Stop: 08/07/19 14:02 Last Admin: 08/07/19 14:08 Dose: 100 mg Meropenem (Merrem) Confirm Administered Dose 500 mg .ROUTE .STK-MED ONE Stop: 08/07/19 07:03 Last Admin: 08/07/19 12:06 Dose: 500 mg Meropenem (Merrem) Confirm Administered Dose 500 mg .ROUTE .STK-MED ONE Stop: 08/12/19 06:59 Last Admin: 08/12/19 11:25 Dose: 500 mg Meropenem (Merrem) Confirm Administered Dose 500 mg .ROUTE .STK-MED ONE Stop: 08/16/19 17:03 Last Admin: 08/16/19 17:37 Dose: 500 mg Meropenem (Merrem) Confirm Administered Dose 1,500 mg .ROUTE .STK-MED ONE Stop: 08/16/19 18:09 Last Admin: 08/16/19 18:17 Dose: 1,500 mg Meropenem (Merrem) Confirm Administered Dose 500 mg .ROUTE .STK-MED ONE Stop: 08/16/19 18:25 Midazolam HCl (Versed 1 Mg/Ml) Confirm Administered Dose 2 mg .ROUTE .STK-MED ONE Stop: 08/07/19 09:50 Midazolam HCl (Versed 1 Mg/Ml) Confirm Administered Dose 2 mg .ROUTE .STK-MED ONE Stop: 08/10/19 08:30 Midazolam HCl (Versed 1 Mg/Ml) Confirm Administered Dose 2 mg .ROUTE .STK-MED ONE Stop: 08/16/19 11:59 Midazolam HCl (Versed 1 Mg/Ml) Confirm Administered Dose 2 mg .ROUTE .STK-MED ONE Stop: 08/16/19 12:20 Miscellaneous Information (Remove Patch) 1 ea TRDERM ONETIME ONE Stop: 08/09/19 10:01 Last Admin: 08/09/19 11:36 Dose: Not Given Naloxone HCl (Narcan) 0.4 mg IVPUSH Q2M PRN PRN Reason: Respiratory Distress Neostigmine Methylsulfate (Neostigmine) Confirm Administered Dose 5 mg .ROUTE .STK-MED ONE Stop: 08/07/19 11:24 Neostigmine Methylsulfate (Neostigmine) Confirm Administered Dose 5 mg .ROUTE .STK-MED ONE Stop: 08/12/19 09:24 Neostigmine Methylsulfate (Neostigmine) Confirm Administered Dose 5 mg .ROUTE .STK-MED ONE Stop: 08/16/19 16:33 Verify Scop Patch 0 each TOP DAILY [facility] Last Admin: 08/16/19 08:14 Dose: Not Given Norepinephrine Bitartrate (Levophed) Confirm Administered Dose 4 mg .ROUTE .STK- MED ONE Stop: 08/16/19 20:39 Last Admin: 08/16/19 22:22 Dose: Not Given Ondansetron HCl (Zofran) Confirm Administered Dose 4 mg .ROUTE .STK-MED ONE Stop: 08/07/19 08:03 Ondansetron HCl (Zofran) Confirm Administered Dose 4 mg .ROUTE .STK-MED ONE Stop: 08/12/19 09:24 Ondansetron HCl (Zofran) Confirm Administered Dose 4 mg .ROUTE .STK-MED ONE Stop: 08/16/19 16:33 Pantoprazole Sodium (Protonix Iv) 40 mg IVPUSH Q24H [facility] Last Admin: 08/07/19 17:03 Dose: 40 mg Pantoprazole Sodium (Protonix Granules) 40 mg PO DAILY [facility] Last Admin: 08/12/19 08:43 Dose: Not Given Pharmacy Consult (Consult To Pharmacy) 1 each .XX ASDIRECTED [facility] Stop: 08/12/19 16:16 Pharmacy Consult (Consult To Pharmacy) 1 each .XX ASDIRECTED [facility] Stop: 08/17/19 07:30 Piperacillin Sod/Tazobactam Sod (Zosyn) 3.375 gm .XX .STK-MED ONE Stop: 08/16/19 17:14 Piperacillin Sod/Tazobactam Sod (Zosyn) Confirm Administered Dose 3.375 gm .ROUTE .STK-MED ONE Stop: 08/16/19 18:23 Last Admin: 08/16/19 18:29 Dose: Not Given Propofol (Diprivan 20 Ml) Confirm Administered Dose 200 mg .ROUTE .STK-MED ONE Stop: 08/07/19 08:03 Propofol (Diprivan 20 Ml) Confirm Administered Dose 200 mg .ROUTE .STK-MED ONE Stop: 08/10/19 08:30 Propofol (Diprivan 20 Ml) Confirm Administered Dose 200 mg .ROUTE .STK-MED ONE Stop: 08/12/19 09:24 Propofol (Diprivan 20 Ml) Confirm Administered Dose 200 mg .ROUTE .STK-MED ONE Stop: 08/16/19 11:58 Propofol (Diprivan 20 Ml) Confirm Administered Dose 200 mg .ROUTE .STK-MED ONE Stop: 08/16/19 12:20 Propofol (Diprivan 20 Ml) Confirm Administered Dose 200 mg .ROUTE .STK-MED ONE Stop: 08/16/19 16:33 Rocuronium [place] (Zemuron) Confirm Administered Dose 50 mg .ROUTE .STK-MED ONE Stop: 08/07/19 08:03 Rocuronium [place] (Zemuron) Confirm Administered Dose 50 mg .ROUTE .STK-MED ONE Stop: 08/07/19 10:56 Rocuronium [place] (Zemuron) Confirm Administered Dose 50 mg .ROUTE .STK-MED ONE Stop: 08/12/19 09:24 Rocuronium [place] (Zemuron) Confirm Administered Dose 50 mg .ROUTE .STK-MED ONE Stop: 08/12/19 11:55 Rocuronium [place] (Zemuron) Confirm Administered Dose 50 mg .ROUTE .STK-MED ONE Stop: 08/16/19 16:33 Rocuronium [place] (Zemuron) Confirm Administered Dose 50 mg .ROUTE .STK-MED ONE Stop: 08/16/19 17:36 Scopolamine (Transderm-Scop) 1.5 mg TRDERM Q72H PRN PRN Reason: Nausea Last Admin: 08/13/19 09:28 Dose: 1.5 mg Sertraline HCl (Zoloft) 150 mg PO DAILY [facility] Last Admin: 08/16/19 08:14 Dose: Not Given Sodium Chloride (Saline Flush) 10 ml FLUSH ASDIRECTED PRN PRN Reason: Keep Vein Open Succinylcholine Chloride (Quelicin) Confirm Administered Dose 200 mg .ROUTE .STK -MED ONE Stop: 08/07/19 08:07 Succinylcholine Chloride (Quelicin) Confirm Administered Dose 200 mg .ROUTE .STK -MED ONE Stop: 08/12/19 09:24 Succinylcholine Chloride (Quelicin) Confirm Administered Dose 200 mg .ROUTE .STK -MED ONE Stop: 08/16/19 16:33 Tramadol HCl (Ultram) 50 mg PO Q6H PRN PRN Reason: PAIN - Exam Quality Assessment: Supplemental Oxygen, Urine Catheter, DVT Prophylaxis General: Alert, Oriented, Moderate Distress Lungs: Normal Respiratory Effort, Rhonchi, Wheezing. No: Crackles, Rales Cardiovascular: Regular Rate, Regular Rhythm, No Murmurs GI/Abdominal Exam: Soft, No Organomegaly, Tender. No: Distended, Guarding, Rigid, Rebound Extremities: Non-Tender, Pedal Edema Consult PN Assessment/Plan Procedures: Procedures AIRWAY INHALATION TREATMENT (01/28/19) ASSAY OF MAGNESIUM (01/28/19) ASSAY OF NATRIURETIC PEPTIDE (01/28/19) ASSAY OF PHOSPHORUS (01/28/19) BLOOD TYPING SEROLOGIC ABO (01/28/19) BLOOD TYPING SEROLOGIC RH(D) (01/28/19) COMPLETE CBC W/AUTO DIFF WBC (01/28/19) COMPREHEN METABOLIC PANEL (01/28/19) CULTURE SCREEN ONLY (01/22/19) EGD BIOPSY SINGLE/MULTIPLE (01/22/19) FLUOROSCOPY <1 HR PHYS/QHP (01/28/19) GLUCOSE BLOOD TEST (01/28/19) MEASURE BLOOD OXYGEN LEVEL (01/28/19) RBC ANTIBODY SCREEN (01/28/19) ROUTINE VENIPUNCTURE (01/28/19) X-RAY UPPER GI DELAY W/O KUB (01/28/19) Problem List Initiated/Reviewed/Updated: Yes My Orders Last 24 Hours: My Active Orders 08/18/19 23:30 Dextrose 5%-Lactated Ringers 1,000 ml IV ASDIRECTED 08/19/19 02:55 Benzocaine/Cetylpyrd/Menthol [Cepacol Sore Throat] 1 lozenge MUCMEM ASDIRECTED PRN 08/19/19 09:00 Calcium Gluconate 2 gm Sodium Chloride 0.9% [Normal Saline] 100 ml IV Q6H 08/19/19 10:00 methylPREDNISolone Sod Succ [Solu-MEDROL] 40 mg IVPUSH Q6H 08/19/19 17:00 BASIC METABOLIC PANEL,BMP [CHEM] Stat CALCIUM IONIZED,ISTAT [POC] Stat 08/20/19 05:00 CBC WITH AUTO DIFF [HEME] Timed COMPREHENSIVE METABOLIC PN,CMP [CHEM] Timed MAGNESIUM [CHEM] Timed PHOSPHORUS [CHEM] Timed Plan: ASSESSMENT AND RECOMMENDATIONS ACUTE KIDNEY INJURY-secondary to hypotension and poor renal perfusion. Blood pressure is now stabilized with low dose norepinephrine. Renal function has plateaued, expect improvement over the next few days -Maintain mean arterial pressure of greater than 65 -Closely monitor urine output and renal function HYPOTENSION-blood pressure has stabilized with use of norepinephrine -Continue current antibiotic therapy -Fluids and norepinephrine as needed to maintain MAP HYPOCALCEMIA-Ionized calcium from this morning found to be low -Calcium gluconate 2 g IV every 6 hours 2 -Recheck ionized calcium later today and in a.m. STATUS POST EXPLORATORY LAPAROTOMY FOR GASTRIC PERFORATION -Postop care per Dr. Peraza
[2019-08-19] MEDS: Linezolid 600 MG in Premix Bag 1 BAG IV SCH ×2 (09:10→20:20)
[2019-08-19] MEDS: Calcium Gluconate 2 GM in Sodium Chloride 0.9% 100 ML IV SCH ×2 (09:10→15:50)
[2019-08-19] MEDS: Albuterol/Ipratropium 3.0-0.5 MG/3 ML Neb Soln NEB PRN ×2 (09:31→18:10)
[2019-08-19] MEDS: Heparin Sodium 5,000 Units/ML Vial SUBCUT SCH ×2 (09:57→21:18)
[2019-08-19] MEDS: methylPREDNISolone Sodium Succinate 40 MG/1 ML SDV IVPUSH SCH ×3 (10:00→21:45)
--- NOTE | 2019-08-19 10:00 | PN ---
DATE OF SERVICE: 08/19/2019 SUBJECTIVE: Karena is a 63-year-old female whose most recent surgery was 3 days ago. She is up sitting in the chair, short of breath, wheezing, stridor noted, respirations rapid at 22 to 26. She is on 3 L of O2. Her oral intake was 1020. Urine output via Negrete catheter 482. Gastric tube put out 90. HARRISON drains 1 to 7 respectively put out 5, 15, 35, 5, 25, 35, and 30 respectively. Color, light pink serosanguineous. No bowel movement. Her labs, hemoglobin was 11.7, glucose 124, bilirubin 1.9, creatinine 3.5. Estimated GFR is 13. Karena states her pain is controlled, she is weak. REVIEW OF SYSTEMS: Remainder of review of systems negative for any pertinent positives and negatives. OBJECTIVE: GENERAL: Karena Thornton is a 63-year-old female. VITAL SIGNS: Last TPR was at 0059. Last temperature was afebrile at 97.5 at 0050. Vitals from 0500, pulse 82, respirations 22, O2 at 93% on 3 L, and blood pressure 125/45: HEENT: Negative. NECK: Supple. HEART: Regular rate and rhythm. LUNGS: Reveals extensive wheezing, stridor, and thick productive sounding cough. ABDOMEN: As above. Dressing dry and intact. EXTREMITIES: Trace peripheral edema. PLAN: 1. DuoNeb stat. 2. Increase DuoNeb to every 2 hours p.r.n. 3. Walk or stand a few steps 6 times daily. 4. Physical therapy and occupational therapy evaluation and treatment to treat and evaluate. 5. Negrete catheter remains in for accurate intake and output. 6. Acapella 10 times every hour while awake. 7. We will evaluate p.r.n. or in a.m. Kenia Valencia PA-C /[id number]
[2019-08-19] MEDS: Meropenem 500 MG in Sodium Chloride 0.9% 50 ML IV SCH ×2 (10:25→21:20)
[2019-08-19] MEDS: Pantoprazole 40 MG Vial IVPUSH SCH (16:45)
[2019-08-19] MEDS ORDERED: Calcium Gluconate 2 GM in Sodium Chloride 0.9% 100 ML IV ONE (18:23)
[2019-08-20] MEDS: methylPREDNISolone Sodium Succinate 40 MG/1 ML SDV IVPUSH SCH ×2 (03:09→15:10)
[2019-08-20] MEDS: Magnesium Sulfate/Water 2 GM in Premix Bag 1 BAG IV SCH (03:10)
[2019-08-20] MEDS: Albuterol/Ipratropium 3.0-0.5 MG/3 ML Neb Soln INH SCH ×4 (07:04→20:53)
[2019-08-20] MEDS: Linezolid 600 MG in Premix Bag 1 BAG IV SCH ×2 (08:44→20:54)
--- NOTE | 2019-08-20 09:27 | PCM.CONSN ---
- General Info Date of Service: 08/20/19 Subjective Update: Ms. Thornton improved over the last 24 hours, calcium level improving and respiratory status has been more stable with less expiratory wheezing and shortness of breath. She continues with cough productive of relatively clear sputum. Vital signs have been stable and she has remained afebrile. - Review of Systems General: Reports: Weakness. Denies: Fever, Chills Pulmonary: Reports: Shortness of Breath, Cough, Sputum, Wheezing. Denies: Pleuritic Chest Pain, Hemoptysis Cardiovascular: Reports: No Symptoms Gastrointestinal: Reports: Abdominal Pain. Denies: Decreased Appetite, Difficulty Swallowing, Nausea, Vomiting - Patient Data Vitals - Most Recent: Last Vital Signs Temp 95 F L 08/20/19 02:00 Pulse 84 08/20/19 09:00 Resp 18 08/20/19 09:00 BP 144/64 H 08/20/19 09:00 Pulse Ox 95 08/20/19 09:00 Weight - Most Recent: 403 lb 12.8 oz I&O - Last 24 Hours: Intake & Output 08/19/19 08/20/19 08/20/19 22:59 06:59 14:59 Intake Total 1073 701 Output Total 435 610 150 Balance 638 91 -150 Lab Results Last 24 Hours: Laboratory Results - last 24 hr 08/19/19 08/19/19 08/20/19 Range/Units 17:00 17:00 04:25 WBC 25.6 H (4.5-11.0) K/uL RBC 2.98 L (3.30-5.50) M/uL Hgb 8.3 L (12.0-15.0) g/dL Hct 28.0 L (36.0-48.0) % MCV 94 (80-98) fL MCH 28 (27-31) pg MCHC 30 L (32-36) % Plt Count 529 H (150-400) K/uL Add Manual Diff Yes Neutrophils % (Manual) 74 H (36-66) % Band Neutrophils % 12 H (5-11) % Lymphocytes % (Manual) 5 L (24-44) % Monocytes % (Manual) 5 (2-6) % Blast Cells % 4 % Sodium 137 L (140-148) mmol/L Potassium 3.7 (3.6-5.2) mmol/L Chloride 103 (100-108) mmol/L Carbon Dioxide 24 (21-32) mmol/L Anion Gap 13.7 (5.0-14.0) mmol/L BUN 35 H (7-18) mg/dL Creatinine 3.5 H (0.6-1.0) mg/dL Est Cr Clr Drug Dosing 14.58 mL/min Estimated GFR (MDRD) 13 L (>60) Glucose 159 H (74-106) mg/dL Calcium 8.9 (8.5-10.1) mg/dL POC WB Ioniz Calcium 1.09 L (1.12-1.32) mmol/L Phosphorus (2.5-4.9) mg/dL Magnesium (1.8-2.4) mg/dL Total Bilirubin (0.2-1.0) mg/dL AST (15-37) U/L ALT (12-78) U/L Alkaline Phosphatase (46-116) U/L Total Protein (6.4-8.2) g/dL Albumin (3.4-5.0) g/dL Globulin (2.3-3.5) g/dL Albumin/Globulin Ratio (1.2-2.2) 08/20/19 Range/Units 04:25 WBC (4.5-11.0) K/uL RBC (3.30-5.50) M/uL Hgb (12.0-15.0) g/dL Hct (36.0-48.0) % MCV (80-98) fL MCH (27-31) pg MCHC (32-36) % Plt Count (150-400) K/uL Add Manual Diff Neutrophils % (Manual) (36-66) % Band Neutrophils % (5-11) % Lymphocytes % (Manual) (24-44) % Monocytes % (Manual) (2-6) % Blast Cells % % Sodium 139 L (140-148) mmol/L Potassium 4.2 (3.6-5.2) mmol/L Chloride 104 (100-108) mmol/L Carbon Dioxide 28 (21-32) mmol/L Anion Gap 11.2 (5.0-14.0) mmol/L BUN 38 H (7-18) mg/dL Creatinine 3.1 H (0.6-1.0) mg/dL Est Cr Clr Drug Dosing 16.46 mL/min Estimated GFR (MDRD) 15 L (>60) Glucose 152 H (74-106) mg/dL Calcium 8.5 (8.5-10.1) mg/dL POC WB Ioniz Calcium (1.12-1.32) mmol/L Phosphorus 6.4 H (2.5-4.9) mg/dL Magnesium 4.1 H D (1.8-2.4) mg/dL Total Bilirubin 1.6 H (0.2-1.0) mg/dL AST 28 (15-37) U/L ALT 70 (12-78) U/L Alkaline Phosphatase 109 (46-116) U/L Total Protein 5.5 L (6.4-8.2) g/dL Albumin 1.2 L (3.4-5.0) g/dL Globulin 4.3 H (2.3-3.5) g/dL Albumin/Globulin Ratio 0.3 L (1.2-2.2) Wero Results Last 24 Hours: Microbiology 08/16/19 17:48 Gram Stain - Final Abdomen - Drainage Wound Culture - Final Morganella Morganii Yeast Isolated Viridans Streptococcus Gram Positive Rods Anaerobic Culture - Final NO GROWTH AFTER 3 DAYS 08/16/19 17:05 Gram Stain - Final Abdomen - Abscess Wound Culture - Final Yeast Isolated Gram Positive Rods Viridans Streptococcus Anaerobic Culture - Final NO GROWTH AFTER 3 DAYS Med Orders - Current: Current Medications Albuterol/Ipratropium (Duoneb 3.0-0.5 Mg/3 Ml) 3 ml INH QIDRT WERNER Last Admin: 08/20/19 07:04 Dose: 3 ml Albuterol/Ipratropium (Duoneb 3.0-0.5 Mg/3 Ml) 3 ml NEB Q2H PRN PRN Reason: wheezing/stridor Last Admin: 08/19/19 18:10 Dose: 3 ml Benzocaine/Menthol (Cepacol Sore Throat) 1 lozenge MUCMEM ASDIRECTED PRN PRN Reason: sore throat Last Admin: 08/19/19 16:53 Dose: 1 alina Diphenhydramine HCl (Benadryl) 50 mg IVPUSH Q4H PRN PRN Reason: ITCHING Last Admin: 08/17/19 22:31 Dose: 50 mg Heparin Sodium (Porcine) (Heparin Sodium) 5,000 units SUBCUT Q12H [facility] Last Admin: 08/19/19 21:18 Dose: 5,000 units Hydromorphone HCl (Dilaudid Surveillance Sensor Operator 15 Mg In Ns 30 Ml) 0 mg IV ASDIRECTED PRN; Protocol 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 Last Admin: 08/19/19 22:08 Dose: 15 mg Hydroxyzine HCl (Vistaril) 100 mg IM Q4H PRN PRN Reason: pain Last Admin: 08/16/19 20:47 Dose: 100 mg Heparin Sodium (Porcine) 5,000 (units/ Sodium Chloride) 501 mls @ 1 mls/hr IV ASDIRECTED [facility] Last Admin: 08/17/19 00:02 Dose: 1 mls/hr Linezolid 600 mg/ Premix 300 mls @ 300 mls/hr IV Q12H [facility] Last Admin: 08/20/19 08:44 Dose: 300 mls/hr Meropenem 500 mg/ Sodium (Chloride) 50 mls @ 100 mls/hr IV Q12H [facility] Last Admin: 08/19/19 21:20 Dose: 100 mls/hr Dextrose/Lactated Ringer's (Dextrose 5%-Lactated Ringers) 1,000 mls @ 25 mls/ hr IV ASDIRECTED [facility] Labetalol HCl (Normodyne) 5 mg IVPUSH Q5M PRN PRN Reason: SBP over 160 OR DBP over 95 Methylprednisolone Sodium Succinate (Solu-Medrol) 40 mg IVPUSH Q12H [facility] Metoclopramide HCl (Reglan) 10 mg IVPUSH Q6H PRN PRN Reason: NAUSEA NOT CONTROL BY ZOFRAN Last Admin: 08/16/19 08:03 Dose: 10 mg Naloxone HCl (Narcan) 0.1 mg IV ASDIRECTED PRN PRN Reason: decreased respiratory rate Ondansetron HCl (Zofran) 4 mg IV Q4H PRN PRN Reason: Nausea/Vomiting Last Admin: 08/15/19 20:07 Dose: 4 mg Pantoprazole Sodium (Protonix Iv) 40 mg IVPUSH Q24H [facility] Last Admin: 08/19/19 16:45 Dose: 40 mg Sodium Chloride (Saline Flush) 10 ml IV ASDIRECTED PRN 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 Acetaminophen (Tylenol) 650 mg PO Q6H [facility] Last Admin: 08/12/19 17:42 Dose: 650 mg Acetaminophen (Tylenol) 650 mg PO Q6H [facility] Last Admin: 08/17/19 13:39 Dose: Not Given Albuterol/Ipratropium (Duoneb 3.0-0.5 Mg/3 Ml) 3 ml INH ONETIME ONE Stop: 08/07/19 10:01 Last Admin: 08/07/19 09:28 Dose: 3 ml Albuterol/Ipratropium (Duoneb 3.0-0.5 Mg/3 Ml) 3 ml INH QIDRT [facility] Last Admin: 08/14/19 07:33 Dose: Not Given Albuterol/Ipratropium (Duoneb 3.0-0.5 Mg/3 Ml) 3 ml INH ASDIRECTED PRN PRN Reason: BREATHING Albuterol/Ipratropium (Duoneb 3.0-0.5 Mg/3 Ml) 3 ml INH Q6H PRN PRN Reason: Shortness of Breath Albuterol/Ipratropium (Duoneb 3.0-0.5 Mg/3 Ml) 3 ml INH ASDIRECTED PRN PRN Reason: BREATHING Last Admin: 08/18/19 17:50 Dose: 3 ml Bumetanide (Bumex) 1 mg IVPUSH ONETIME ONE Stop: 08/18/19 08:50 Last Admin: 08/18/19 09:19 Dose: 1 mg Bumetanide (Bumex) 1 mg IVPUSH ONETIME ONE Stop: 08/18/19 23:26 Last Admin: 08/18/19 23:46 Dose: 1 mg Bupivacaine HCl/Epinephrine Bitart (Marcaine 0.5%/Epinephrine 1:200,000) Confirm Administered Dose 50 ml .ROUTE .STK-MED ONE Stop: 08/07/19 07:03 Celecoxib (Celebrex) 200 mg PO DAILY@0800 [facility] Last Admin: 08/16/19 08:13 Dose: Not Given Ropivacaine 60 ml/Dexamethasone 8 mg/Epinephrine HCl 0.4 mg/ Sodium Chloride 17.6 ml 0 ml NERVRT ASDIRECTED [facility] Last Admin: 08/07/19 10:28 Dose: 80 syringe Ropivacaine 60 ml/Dexamethasone 8 mg/Epinephrine HCl 0.4 mg/ Sodium Chloride 17.6 ml 0 ml NERVRT ASDIRECTED [facility] Last Admin: 08/12/19 12:00 Dose: 80 syringe Ropivacaine 60 ml/Dexamethasone 8 mg/Epinephrine HCl 0.4 mg/ Sodium Chloride 17.6 ml 0 ml NERVRT ASDIRECTED [facility] Last Admin: 08/16/19 17:15 Dose: 80 syringe Cyanocobalamin (Vitamin B12) 1,000 mcg IM ONETIME ONE Stop: 08/09/19 09:01 Last Admin: 08/09/19 08:06 Dose: 1,000 mcg Cyanocobalamin (Vitamin B12) 1,000 mcg IM ONETIME ONE Stop: 08/14/19 09:01 Last Admin: 08/14/19 08:01 Dose: 1,000 mcg Cyclobenzaprine HCl (Flexeril) 10 mg PO Q8H PRN PRN Reason: MUSCLE SPASM Dexamethasone (Dexamethasone) Confirm Administered Dose 4 mg .ROUTE .STK-MED ONE Stop: 08/07/19 08:03 Dexamethasone (Dexamethasone) Confirm Administered Dose 4 mg .ROUTE .STK-MED ONE Stop: 08/12/19 09:24 Dexamethasone (Dexamethasone) Confirm Administered Dose 4 mg .ROUTE .STK-MED ONE Stop: 08/16/19 16:33 Dextrose/Water (Dextrose 50% In Water) 50 ml IVPUSH ONETIME PRN PRN Reason: ACCUCHECK LESS THAN 70 Diphenhydramine HCl (Benadryl) 25 - 50 mg PO Q4H PRN PRN Reason: Itching Last Admin: 08/11/19 12:32 Dose: 50 mg Fentanyl (Sublimaze) Confirm Administered Dose 250 mcg .ROUTE .STK-MED ONE Stop: 08/07/19 08:03 Fentanyl (Sublimaze) Confirm Administered Dose 100 mcg .ROUTE .STK-MED ONE Stop: 08/07/19 10:58 Fentanyl (Sublimaze) Confirm Administered Dose 100 mcg .ROUTE .STK-MED ONE Stop: 08/07/19 12:59 Fentanyl (Sublimaze) Confirm Administered Dose 100 mcg .ROUTE .STK-MED ONE Stop: 08/10/19 08:30 Fentanyl (Sublimaze) Confirm Administered Dose 250 mcg .ROUTE .STK-MED ONE Stop: 08/12/19 09:24 Fentanyl (Sublimaze) Confirm Administered Dose 250 mcg .ROUTE .STK-MED ONE Stop: 08/12/19 11:34 Fentanyl (Sublimaze) Confirm Administered Dose 100 mcg .ROUTE .STK-MED ONE Stop: 08/16/19 11:59 Fentanyl (Sublimaze) Confirm Administered Dose 100 mcg .ROUTE .STK-MED ONE Stop: 08/16/19 12:20 Fentanyl (Sublimaze) 100 mcg IVPUSH ONETIME ONE Stop: 08/16/19 15:56 Last Admin: 08/16/19 16:01 Dose: 100 mcg Fentanyl (Sublimaze) Confirm Administered Dose 250 mcg .ROUTE .STK-MED ONE Stop: 08/16/19 16:32 Furosemide (Lasix) 20 mg IV ONETIME ONE Stop: 08/15/19 09:31 Last Admin: 08/15/19 09:01 Dose: 20 mg Furosemide (Lasix) 20 mg IVPUSH ONETIME ONE Stop: 08/16/19 08:01 Last Admin: 08/16/19 08:55 Dose: 20 mg Furosemide (Lasix) 10 mg IVPUSH ONETIME STA Stop: 08/17/19 21:06 Last Admin: 08/17/19 21:19 Dose: 10 mg Furosemide (Lasix) Confirm Administered Dose 20 mg .ROUTE .STK-MED ONE Stop: 08/17/19 21:16 Last Admin: 08/17/19 22:02 Dose: Not Given Furosemide (Lasix) 10 mg IVPUSH ONETIME STA Stop: 08/18/19 01:14 Last Admin: 08/18/19 01:22 Dose: 10 mg Gabapentin (Neurontin) 300 mg PO TID [facility] Last Admin: 08/12/19 15:13 Dose: Not Given Gabapentin (Neurontin) 300 mg PO TID [facility] Last Admin: 08/17/19 13:39 Dose: Not Given Glucagon (Glucagen) 1 mg IM ONETIME PRN PRN Reason: ACCUCHECK LESS THAN 70 Glycopyrrolate (Robinul) Confirm Administered Dose 1 mg .ROUTE .STK-MED ONE Stop: 08/07/19 10:20 Glycopyrrolate (Glycopyrrolate) 0.4 mg IVPUSH ONCALL ONE Stop: 08/10/19 08:31 Last Admin: 08/10/19 11:03 Dose: Not Given Glycopyrrolate (Robinul) Confirm Administered Dose 1 mg .ROUTE .STK-MED ONE Stop: 08/12/19 09:24 Glycopyrrolate (Glycopyrrolate) 0.4 mg IVPUSH ONCALL ONE Stop: 08/16/19 12:01 Last Admin: 08/16/19 14:59 Dose: 0.4 mg Glycopyrrolate (Robinul) Confirm Administered Dose 1 mg .ROUTE .STK-MED ONE Stop: 08/16/19 16:33 Heparin Sodium (Porcine) (Heparin Sodium) 5,000 units SUBCUT Q12H [facility] Last Admin: 08/11/19 05:45 Dose: 5,000 units Heparin Sodium (Porcine) (Heparin Sodium) 5,000 units SUBCUT Q12H [facility] Last Admin: 08/17/19 13:39 Dose: Not Given Heparin Sodium (Porcine) (Heparin Lock Flush 100 Units/Ml) Confirm Administered Dose 500 units .ROUTE .STK-MED ONE Stop: 08/16/19 16:45 Last Admin: 08/17/19 06:30 Dose: 500 units Heparin Sodium (Porcine) (Heparin Lock Flush 100 Units/Ml) Confirm Administered Dose 500 units .ROUTE .STK-MED ONE Stop: 08/16/19 20:12 Hydromorphone HCl (Dilaudid Surveillance Sensor Operator 15 Mg In Ns 30 Ml) 0 mg IV ASDIRECTED PRN; Protocol PRN Reason: Pain Last Admin: 08/06/19 23:30 Dose: 15 mg Hydromorphone HCl (Dilaudid) 0.5 mg IVPUSH Q2H PRN PRN Reason: MODERATE PAIN Last Admin: 08/16/19 13:36 Dose: 0.5 mg Hydromorphone HCl (Dilaudid) 1 mg IV Q2H PRN PRN Reason: SEVERE PAIN Last Admin: 08/16/19 11:06 Dose: 1 mg Hydroxyzine HCl (Vistaril) 100 mg IM ONETIME ONE Stop: 08/07/19 14:03 Last Admin: 08/07/19 14:14 Dose: 100 mg Dextrose/Lactated Ringer's (Dextrose 5%-Lactated Ringers) 1,000 mls @ 125 mls/ hr IV ASDIRECTED [facility]ERNER Last Admin: 08/07/19 06:11 Dose: 125 mls/hr Linezolid (Zyvox) Confirm Administered Dose 300 mls @ as directed .ROUTE .STK- MED ONE Stop: 08/07/19 07:03 Lidocaine HCl/Dextrose (Lidocaine 2 Gm/D5w 500 Ml) 2 gm in 500 mls @ 15 mls/hr IV .Q24H [facility] Last Admin: 08/07/19 20:31 Dose: Not Given Ketamine HCl 50 mg/ Sodium (Chloride) 50 mls @ 16.2 mls/hr IV ASDIRECTED [facility] Meropenem 500 mg/ Sodium (Chloride) 50 mls @ 100 mls/hr IV ONETIME ONE Stop: 08/07/19 10:29 Last Admin: 08/07/19 09:28 Dose: 100 mls/hr Lidocaine HCl/Dextrose (Lidocaine 2 Gm/D5w 500 Ml) 2 gm in 500 mls @ 15 mls/hr IV .Q24H [facility] Stop: 08/08/19 11:01 Last Admin: 08/08/19 11:26 Dose: Not Given Dextrose/Lactated Ringer's (Dextrose 5%-Lactated Ringers) 1,000 mls @ 200 mls/ hr IV ASDIRECTED [facility] Stop: 08/08/19 17:59 Last Admin: 08/08/19 04:10 Dose: 200 mls/hr Multivitamins/Minerals 10 ml/Thiamine HCl 200 mg/ Chromium/Copper/Manganese/ Seleni/Zn 1 ml/ Dextrose/Lactated Ringer's 1,013 mls @ 174.999 mls/hr IV DAILY@ 1600 WERNER Last Admin: 08/07/19 17:02 Dose: 174.999 mls/hr Meropenem 500 mg/ Sodium (Chloride) 50 mls @ 100 mls/hr IV Q6H [facility] Stop: 08/08/19 22:29 Last Admin: 08/08/19 15:33 Dose: Not Given Dextrose/Lactated Ringer's (Dextrose 5%-Lr) 500 mls @ 500 mls/hr IV ONETIME ONE Stop: 08/08/19 01:29 Last Admin: 08/08/19 00:44 Dose: Not Given Lactated Ringer's (Ringers, Lactated) 500 mls @ 500 mls/hr IV ONETIME ONE Stop: 08/08/19 01:44 Last Admin: 08/08/19 00:48 Dose: 500 mls/hr Magnesium Sulfate 2 gm/ Premix 50 mls @ 25 mls/hr IV Q6H [facility] Stop: 08/10/19 05:59 Last Admin: 08/08/19 10:18 Dose: 25 mls/hr Dextrose/Lactated Ringer's (Dextrose 5%-Lactated Ringers) 1,000 mls @ 100 mls/ hr IV ASDIRECTED [facility] Potassium Phosphate 22.5 mmole (/ Sodium Chloride) 257.5 mls @ 86 mls/hr IV Q3H [facility] Stop: 08/09/19 15:59 Last Admin: 08/09/19 13:11 Dose: 86 mls/hr Dextrose/Lactated Ringer's (Dextrose 5%-Lactated Ringers) 1,000 mls @ 100 mls/ hr IV ASDIRECTED [facility] Last Admin: 08/11/19 21:16 Dose: 100 mls/hr Lidocaine HCl/Dextrose (Lidocaine 2 Gm/D5w 500 Ml) 2 gm in 500 mls @ 15 mls/hr IV .Q24H [facility] Stop: 08/13/19 14:00 Last Admin: 08/13/19 09:21 Dose: Not Given Ketamine HCl 50 mg/ Sodium (Chloride) 50 mls @ 16.41 mls/hr IV ASDIRECTED [facility] Meropenem 500 mg/ Sodium (Chloride) 50 mls @ 100 mls/hr IV ONCALL ONE Stop: 08/12/19 10:29 Last Admin: 08/12/19 10:31 Dose: 100 mls/hr Lactated Ringer's (Ringers, Lactated) Confirm Administered Dose 1,000 mls @ as directed .ROUTE .STK-MED ONE Stop: 08/12/19 09:29 Dextrose/Lactated Ringer's (Dextrose 5%-Lactated Ringers) 1,000 mls @ 175 mls/ hr IV ASDIRECTED [facility] Last Admin: 08/13/19 06:27 Dose: 175 mls/hr Multivitamins/Minerals 10 ml/Thiamine HCl 200 mg/ Chromium/Copper/Manganese/ Seleni/Zn 1 ml/ Dextrose/Lactated Ringer's 1,013 mls @ 175 mls/hr IV DAILY@ 1600 WERNER Last Admin: 08/13/19 17:37 Dose: 175 mls/hr Meropenem 500 mg/ Sodium (Chloride) 50 mls @ 100 mls/hr IV Q6H [facility] Stop: 08/13/19 22:59 Last Admin: 08/13/19 22:09 Dose: 100 mls/hr Magnesium Sulfate 2 gm/ Premix 50 mls @ 25 mls/hr IV Q6H [facility] Stop: 08/15/19 15:59 Last Admin: 08/15/19 13:30 Dose: 25 mls/hr Dextrose/Lactated Ringer's (Dextrose 5%-Lactated Ringers) 1,000 mls @ 125 mls/ hr IV ASDIRECTED [facility] Last Admin: 08/15/19 08:04 Dose: 125 mls/hr Multivitamins/Minerals 10 ml/Thiamine HCl 200 mg/ Chromium/Copper/Manganese/ Seleni/Zn 1 ml/ Dextrose/Lactated Ringer's 1,013 mls @ 125 mls/hr IV DAILY@ 1100 [facility] Last Admin: 08/14/19 10:50 Dose: 125 mls/hr Dextrose/Lactated Ringer's (Dextrose 5%-Lactated Ringers) 1,000 mls @ 80 mls/ hr IV ASDIRECTED [facility] Last Admin: 08/16/19 06:39 Dose: 80 mls/hr Multivitamins/Minerals 10 ml/Thiamine HCl 200 mg/ Chromium/Copper/Manganese/ Seleni/Zn 1 ml/ Dextrose/Lactated Ringer's 1,013 mls @ 80 mls/hr IV DAILY@1600 [facility] Last Admin: 08/17/19 13:38 Dose: Not Given Meropenem 500 mg/ Sodium (Chloride) 50 mls @ 100 mls/hr IV ONCALL ONE Stop: 08/16/19 15:59 Last Admin: 08/16/19 15:37 Dose: 100 mls/hr Aztreonam 1 gm/ Sodium (Chloride) 50 mls @ 100 mls/hr IV ONETIME ONE Stop: 08/16/19 16:14 Last Admin: 08/16/19 15:51 Dose: 100 mls/hr Ketamine HCl 50 mg/ Sodium (Chloride) 50 mls @ 16.41 mls/hr IV ASDIRECTED [facility] Lidocaine HCl/Dextrose (Lidocaine 2 Gm/D5w 500 Ml) 2 gm in 500 mls @ 15 mls/hr IV .Q24H [facility] Stop: 08/17/19 16:31 Last Admin: 08/17/19 16:42 Dose: Not Given Lactated Ringer's (Ringers, Lactated) Confirm Administered Dose 1,000 mls @ as directed .ROUTE .STK-MED ONE Stop: 08/16/19 17:08 Sodium Chloride (Normal Saline) Confirm Administered Dose 100 mls @ as directed .ROUTE .[facility] ONE Stop: 08/16/19 18:24 Last Admin: 08/16/19 22:22 Dose: Not Given Lactated Ringer's (Ringers, Lactated) Confirm Administered Dose 1,000 mls @ as directed .ROUTE .[facility] ONE Stop: 08/16/19 18:36 Dextrose/Water (Dextrose 5% In Water) Confirm Administered Dose 250 mls @ as directed .ROUTE .[facility] ONE Stop: 08/16/19 20:42 Last Admin: 08/16/19 22:22 Dose: Not Given Dextrose/Lactated Ringer's (Dextrose 5%-Lactated Ringers) 1,000 mls @ 200 mls/ hr IV ASDIRECTED [facility] Last Admin: 08/18/19 22:27 Dose: 200 mls/hr Multivitamins/Minerals 10 ml/Thiamine HCl 200 mg/ Chromium/Copper/Manganese/ Seleni/Zn 1 ml/ Dextrose/Lactated Ringer's 1,013 mls @ 200 mls/hr IV DAILY@ 1600 WERNER Meropenem 500 mg/ Sodium (Chloride) 50 mls @ 100 mls/hr IV Q6H [facility] Last Admin: 08/17/19 09:50 Dose: 100 mls/hr Aztreonam 1 gm/ Sodium (Chloride) 50 mls @ 100 mls/hr IV Q8H [facility] Last Admin: 08/17/19 06:13 Dose: 100 mls/hr Norepinephrine Bitartrate 4 mg (/ Dextrose/Water) 250 mls @ 7.5 mls/hr IV TITRATE WERNER; Protocol Last Titration: 08/19/19 10:02 Dose: 0 mcg/min, 0 mls/hr Lactated Ringer's (Ringers, Lactated) 500 mls @ 1,000 mls/hr IV .BOLUS WERNER Last Admin: 08/17/19 08:40 Dose: 1,000 mls/hr Lactated Ringer's (Ringers, Lactated) 500 mls @ 999 mls/hr IV .BOLUS WERNER Last Admin: 08/17/19 05:51 Dose: 999 mls/hr Aztreonam 1 gm/ Sodium (Chloride) 50 mls @ 100 mls/hr IV Q8HR [facility] Last Admin: 08/19/19 05:07 Dose: 100 mls/hr Lactated Ringer's (Ringers, Lactated) 500 mls @ 0 mls/hr IV ASDIRECTED [facility] Stop: 08/17/19 08:31 Multivitamins/Minerals 10 ml/Thiamine HCl 200 mg/ Chromium/Copper/Manganese/ Seleni/Zn 1 ml/ Dextrose/Lactated Ringer's 1,013 mls @ 200 mls/hr IV DAILY@ 1000 [facility] Last Admin: 08/18/19 12:21 Dose: 200 mls/hr Lactated Ringer's (Ringers, Lactated) 500 mls @ 999 mls/hr IV ASDIRECTED [facility] Stop: 08/17/19 11:16 Last Admin: 08/17/19 10:21 Dose: 999 mls/hr Lactated Ringer's (Ringers, Lactated) 500 mls @ 999 mls/hr IV ASDIRECTED [facility] Stop: 08/17/19 12:46 Last Admin: 08/17/19 12:16 Dose: 999 mls/hr Lactated Ringer's (Ringers, Lactated) 500 mls @ 999 mls/hr IV ASDIRECTED [facility] Stop: 08/17/19 15:01 Last Admin: 08/17/19 14:28 Dose: 999 mls/hr Lactated Ringer's (Ringers, Lactated) 500 mls @ 999 mls/hr IV ASDIRECTED [facility] Stop: 08/17/19 18:31 Last Admin: 08/17/19 17:59 Dose: 999 mls/hr Lactated Ringer's (Ringers, Lactated) 500 mls @ 500 mls/hr IV BOLUS ONE Stop: 08/17/19 20:29 Last Admin: 08/17/19 19:35 Dose: 500 mls/hr Lactated Ringer's (Ringers, Lactated) 500 mls @ 500 mls/hr IV .BOLUS WERNER Last Admin: 08/18/19 03:13 Dose: 500 mls/hr Lactated Ringer's (Ringers, Lactated) 500 mls @ 500 mls/hr IV STAT WERNER Last Admin: 08/18/19 05:18 Dose: 500 mls/hr Magnesium Sulfate 2 gm/ Premix 50 mls @ 25 mls/hr IV Q6H [facility] Stop: 08/20/19 05:59 Last Admin: 08/20/19 03:10 Dose: 25 mls/hr Calcium Gluconate 2 gm/ Sodium (Chloride) 120 mls @ 100 mls/hr IV Q6H [facility] Stop: 08/18/19 17:11 Last Admin: 08/18/19 15:38 Dose: 100 mls/hr Calcium Gluconate 2 gm/ Sodium (Chloride) 120 mls @ 60 mls/hr IV Q6H [facility] Stop: 08/19/19 01:44 Last Admin: 08/18/19 23:13 Dose: 60 mls/hr Calcium Gluconate 2 gm/ Sodium (Chloride) 120 mls @ 100 mls/hr IV Q6H [facility] Stop: 08/19/19 16:11 Last Admin: 08/19/19 15:50 Dose: 100 mls/hr Calcium Gluconate 2 gm/ Sodium (Chloride) 120 mls @ 100 mls/hr IV ONETIME ONE Stop: 08/19/19 19:34 Last Admin: 08/19/19 18:42 Dose: 100 mls/hr Insulin Human Lispro (Humalog) 5 unit SUBCUT ONETIME ONE Stop: 08/07/19 14:01 Last Admin: 08/07/19 15:07 Dose: 5 units Insulin Human Lispro (Humalog) 0 unit SUBCUT Q6H PRN; Protocol PRN Reason: CORRECTIONAL DOSING Last Admin: 08/13/19 04:12 Dose: 9 unit Iopamidol (Isovue-300 (61%)) 50 ml PO ASDIRECTED ONE Stop: 08/08/19 04:27 Last Admin: 08/08/19 04:43 Dose: 50 ml Iopamidol (Isovue-300 (61%)) 20 ml PO ASDIRECTED ONE Stop: 08/13/19 04:21 Last Admin: 08/13/19 04:34 Dose: 20 ml Ketamine HCl (Ketalar) 27 mg IV ASDIRECTED WERNER Ketamine HCl (Ketalar) 27 mg IV ASDIRECTED WERNER Ketamine HCl (Ketalar) 27 mg IV ASDIRECTED WERNER Ketorolac Tromethamine (Toradol) Confirm Administered Dose 60 mg .ROUTE .STK- MED ONE Stop: 08/07/19 08:03 Lidocaine HCl (Xylocaine 2%) 100 mg IVPUSH ASDIRECTED [facility] Lidocaine HCl (Xylocaine 2%) 100 mg IVPUSH ASDIRECTED [facility] Lidocaine HCl (Xylocaine 2%) 100 mg IVPUSH ASDIRECTED [facility] Linezolid (Zyvox) 600 mg IRR .STK-MED ONE Stop: 08/07/19 12:08 Last Admin: 08/07/19 12:07 Dose: 600 mg Lorazepam (Ativan) 0.5 - 1 mg IV Q4H PRN PRN Reason: ANXIETY Last Admin: 08/15/19 09:01 Dose: 1 mg Losartan Potassium (Cozaar) 50 mg PO DAILY [facility] Last Admin: 08/16/19 08:13 Dose: Not Given Meperidine HCl (Demerol) 100 mg IM ONETIME ONE Stop: 08/07/19 14:02 Last Admin: 08/07/19 14:08 Dose: 100 mg Meropenem (Merrem) Confirm Administered Dose 500 mg .ROUTE .STK-MED ONE Stop: 08/07/19 07:03 Last Admin: 08/07/19 12:06 Dose: 500 mg Meropenem (Merrem) Confirm Administered Dose 500 mg .ROUTE .STK-MED ONE Stop: 08/12/19 06:59 Last Admin: 08/12/19 11:25 Dose: 500 mg Meropenem (Merrem) Confirm Administered Dose 500 mg .ROUTE .STK-MED ONE Stop: 08/16/19 17:03 Last Admin: 08/16/19 17:37 Dose: 500 mg Meropenem (Merrem) Confirm Administered Dose 1,500 mg .ROUTE .STK-MED ONE Stop: 08/16/19 18:09 Last Admin: 08/16/19 18:17 Dose: 1,500 mg Meropenem (Merrem) Confirm Administered Dose 500 mg .ROUTE .STK-MED ONE Stop: 08/16/19 18:25 Methylprednisolone Sodium Succinate (Solu-Medrol) 40 mg IVPUSH Q6H [facility] Last Admin: 08/20/19 03:09 Dose: 40 mg Midazolam HCl (Versed 1 Mg/Ml) Confirm Administered Dose 2 mg .ROUTE .STK-MED ONE Stop: 08/07/19 09:50 Midazolam HCl (Versed 1 Mg/Ml) Confirm Administered Dose 2 mg .ROUTE .STK-MED ONE Stop: 08/10/19 08:30 Midazolam HCl (Versed 1 Mg/Ml) Confirm Administered Dose 2 mg .ROUTE .STK-MED ONE Stop: 08/16/19 11:59 Midazolam HCl (Versed 1 Mg/Ml) Confirm Administered Dose 2 mg .ROUTE .STK-MED ONE Stop: 08/16/19 12:20 Miscellaneous Information (Remove Patch) 1 ea TRDERM ONETIME ONE Stop: 08/09/19 10:01 Last Admin: 08/09/19 11:36 Dose: Not Given Naloxone HCl (Narcan) 0.4 mg IVPUSH Q2M PRN PRN Reason: Respiratory Distress Neostigmine Methylsulfate (Neostigmine) Confirm Administered Dose 5 mg .ROUTE .STK-MED ONE Stop: 08/07/19 11:24 Neostigmine Methylsulfate (Neostigmine) Confirm Administered Dose 5 mg .ROUTE .STK-MED ONE Stop: 08/12/19 09:24 Neostigmine Methylsulfate (Neostigmine) Confirm Administered Dose 5 mg .ROUTE .STK-MED ONE Stop: 08/16/19 16:33 Verify Scop Patch 0 each TOP DAILY [facility] Last Admin: 08/16/19 08:14 Dose: Not Given Norepinephrine Bitartrate (Levophed) Confirm Administered Dose 4 mg .ROUTE .STK- MED ONE Stop: 08/16/19 20:39 Last Admin: 08/16/19 22:22 Dose: Not Given Ondansetron HCl (Zofran) Confirm Administered Dose 4 mg .ROUTE .STK-MED ONE Stop: 08/07/19 08:03 Ondansetron HCl (Zofran) Confirm Administered Dose 4 mg .ROUTE .STK-MED ONE Stop: 08/12/19 09:24 Ondansetron HCl (Zofran) Confirm Administered Dose 4 mg .ROUTE .STK-MED ONE Stop: 08/16/19 16:33 Pantoprazole Sodium (Protonix Iv) 40 mg IVPUSH Q24H [facility] Last Admin: 08/07/19 17:03 Dose: 40 mg Pantoprazole Sodium (Protonix Granules) 40 mg PO DAILY [facility] Last Admin: 08/12/19 08:43 Dose: Not Given Pharmacy Consult (Consult To Pharmacy) 1 each .XX ASDIRECTED [facility] Stop: 08/12/19 16:16 Pharmacy Consult (Consult To Pharmacy) 1 each .XX ASDIRECTED [facility] Stop: 08/17/19 07:30 Piperacillin Sod/Tazobactam Sod (Zosyn) 3.375 gm .XX .STK-MED ONE Stop: 08/16/19 17:14 Piperacillin Sod/Tazobactam Sod (Zosyn) Confirm Administered Dose 3.375 gm .ROUTE .STK-MED ONE Stop: 08/16/19 18:23 Last Admin: 08/16/19 18:29 Dose: Not Given Propofol (Diprivan 20 Ml) Confirm Administered Dose 200 mg .ROUTE .STK-MED ONE Stop: 08/07/19 08:03 Propofol (Diprivan 20 Ml) Confirm Administered Dose 200 mg .ROUTE .STK-MED ONE Stop: 08/10/19 08:30 Propofol (Diprivan 20 Ml) Confirm Administered Dose 200 mg .ROUTE .STK-MED ONE Stop: 08/12/19 09:24 Propofol (Diprivan 20 Ml) Confirm Administered Dose 200 mg .ROUTE .STK-MED ONE Stop: 08/16/19 11:58 Propofol (Diprivan 20 Ml) Confirm Administered Dose 200 mg .ROUTE .STK-MED ONE Stop: 08/16/19 12:20 Propofol (Diprivan 20 Ml) Confirm Administered Dose 200 mg .ROUTE .STK-MED ONE Stop: 08/16/19 16:33 Rocuronium [place] (Zemuron) Confirm Administered Dose 50 mg .ROUTE .STK-MED ONE Stop: 08/07/19 08:03 Rocuronium [place] (Zemuron) Confirm Administered Dose 50 mg .ROUTE .STK-MED ONE Stop: 08/07/19 10:56 Rocuronium [place] (Zemuron) Confirm Administered Dose 50 mg .ROUTE .STK-MED ONE Stop: 08/12/19 09:24 Rocuronium [place] (Zemuron) Confirm Administered Dose 50 mg .ROUTE .STK-MED ONE Stop: 08/12/19 11:55 Rocuronium [place] (Zemuron) Confirm Administered Dose 50 mg .ROUTE .STK-MED ONE Stop: 08/16/19 16:33 Rocuronium [place] (Zemuron) Confirm Administered Dose 50 mg .ROUTE .STK-MED ONE Stop: 08/16/19 17:36 Scopolamine (Transderm-Scop) 1.5 mg TRDERM Q72H PRN PRN Reason: Nausea Last Admin: 08/13/19 09:28 Dose: 1.5 mg Sertraline HCl (Zoloft) 150 mg PO DAILY [facility] Last Admin: 08/16/19 08:14 Dose: Not Given Sodium Chloride (Saline Flush) 10 ml FLUSH ASDIRECTED PRN PRN Reason: Keep Vein Open Succinylcholine Chloride (Quelicin) Confirm Administered Dose 200 mg .ROUTE .STK -MED ONE Stop: 08/07/19 08:07 Succinylcholine Chloride (Quelicin) Confirm Administered Dose 200 mg .ROUTE .STK -MED ONE Stop: 08/12/19 09:24 Succinylcholine Chloride (Quelicin) Confirm Administered Dose 200 mg .ROUTE .STK -MED ONE Stop: 08/16/19 16:33 Tramadol HCl (Ultram) 50 mg PO Q6H PRN PRN Reason: PAIN - Exam Quality Assessment: Supplemental Oxygen, Urine Catheter, DVT Prophylaxis General: Alert, Oriented, Cooperative, Mild Distress Lungs: Normal Respiratory Effort, Wheezing. No: Rales, Rhonchi Cardiovascular: Regular Rate, Regular Rhythm GI/Abdominal Exam: Soft, Non-Tender, No Organomegaly, No Distention Extremities: Non-Tender, Pedal Edema Skin: Warm, Dry Consult PN Assessment/Plan Procedures: Procedures AIRWAY INHALATION TREATMENT (01/28/19) ASSAY OF MAGNESIUM (01/28/19) ASSAY OF NATRIURETIC PEPTIDE (01/28/19) ASSAY OF PHOSPHORUS (01/28/19) BLOOD TYPING SEROLOGIC ABO (01/28/19) BLOOD TYPING SEROLOGIC RH(D) (01/28/19) COMPLETE CBC W/AUTO DIFF WBC (01/28/19) COMPREHEN METABOLIC PANEL (01/28/19) CULTURE SCREEN ONLY (01/22/19) EGD BIOPSY SINGLE/MULTIPLE (01/22/19) FLUOROSCOPY <1 HR PHYS/QHP (01/28/19) GLUCOSE BLOOD TEST (01/28/19) MEASURE BLOOD OXYGEN LEVEL (01/28/19) RBC ANTIBODY SCREEN (01/28/19) ROUTINE VENIPUNCTURE (01/28/19) X-RAY UPPER GI DELAY W/O KUB (01/28/19) Problem List Initiated/Reviewed/Updated: Yes My Orders Last 24 Hours: My Active Orders 08/20/19 09:30 methylPREDNISolone Sod Succ [Solu-MEDROL] 40 mg IVPUSH Q12H 08/20/19 17:00 BASIC METABOLIC PANEL,BMP [CHEM] Stat CALCIUM IONIZED,ISTAT [POC] Stat 08/21/19 05:00 CALCIUM IONIZED,ISTAT [POC] Routine CBC WITH AUTO DIFF [HEME] Timed COMPREHENSIVE METABOLIC PN,CMP [CHEM] Timed MAGNESIUM [CHEM] Timed PHOSPHORUS [CHEM] Timed Plan: ASSESSMENT AND RECOMMENDATIONS ACUTE KIDNEY INJURY-secondary to hypotension and poor renal perfusion. Blood pressure is been stable and she has been off of the norepinephrine. Modest improvement in renal function today, urine output picking up -Maintain mean arterial pressure of greater than 65 -Closely monitor urine output and renal function HYPOTENSION-blood pressure stable, now off of norepinephrine -Continue current antibiotic therapy HYPOCALCEMIA-calcium levels improved -Recheck ionized calcium later today and in a.m. MILD TO MODERATE RESPIRATORY COMPROMISE-improved over the last 24 hours with less expiratory wheezing -Supplemental oxygen as needed -Nebulizer therapy -Continue IV Solu-Medrol an additional 24 hours -Add Mucomyst nebs STATUS POST EXPLORATORY LAPAROTOMY FOR GASTRIC PERFORATION -Postop care per Dr. Peraza
--- NOTE | 2019-08-20 09:40 | PN ---
DATE OF SERVICE: 08/17/2019 The patient has been clinically fairly stable overnight. Temperature running in 99 range. Heart rate is in the 80s. Present blood pressure is 105/60 with mean arterial pressure of 75. Respiratory rate is in the low-to-mid 20s. Oxygenation on 3 L nasal cannula was satisfactory with a pulse ox running in the 90s. Sputum amount appears to be minimal. She is taking the ice chips without difficulty at this point, and drains are clearing fairly well. Urine output has been the only significant problem overnight. Creatinine did bump up to 2.1, and we will start some norepinephrine at this point to try to tighten things up and improve urine output. She will probably need some additional fluids as well. Gram stain shows gram-positive cocci and gram-positive rods, so I think we will add Zyvox for the antibiotics mix now. The HARRISON drains all appear to be clear at this point. At this point, we will not proceed with second-look procedure. No other findings. Her labs are significant with a white count of 23,900 with hemoglobin of 9.5. Bilirubin up slightly at 1.5, likely related to somewhat of a septic event. We will maximize activity today. She has some packing in one of her old drain sites, which we will remove today and again work on getting the urine output going today. Jaya Peraza MD Job #: [id number]
[2019-08-20] MEDS: Acetylcysteine 20% 200 MG/ML 4 ML Nebulizer Soln SDV INH SCH ×3 (11:02→20:52)
[2019-08-20] MEDS: Meropenem 500 MG in Sodium Chloride 0.9% 50 ML IV SCH ×2 (11:09→22:23)
[2019-08-20] MEDS: Heparin Sodium 5,000 Units/ML Vial SUBCUT SCH ×2 (11:15→21:06)
[2019-08-20] MEDS: Heparin Sodium 5,000 UNITS in Sodium Chloride 0.9% 500 ML IV SCH (11:17)
--- NOTE | 2019-08-20 11:49 | PN ---
DATE OF SERVICE: 08/18/2019 The patient's temperature has been 97 to 99. Vital signs are otherwise stable. She has a little bit of a cough today, but apparently has an allergic reaction to and otherwise O2 saturations on the 3 L to 4 L per nasal cannula are in the 90s. Urine out remains a significant issue with the creatinine now up at 3.1. In the last hour, she made 17 mL I think with norepinephrine now running at 2 mcg/minute. We had maintained a good mean arterial pressure and will probably begin seeing the urine output improve. Otherwise, lab shows a hemoglobin of 8. I do not think we will transfuse at this point due to the immunosuppressive effects of that. The microbiology thus far has not gotten any results in terms of sensitivities and such, and we will continue the present antibiotics. Otherwise, ionized calcium is somewhat low. We will ask Dr. Mills to address that issue as well and otherwise continue to work with pulmonary toilet. We will try getting her up in the chair a little bit more today as well. Jaya Peraza MD Job #: [id number]
--- NOTE | 2019-08-20 13:13 | PN ---
DATE OF SERVICE: 08/20/2019 SUBJECTIVE: Karena's breathing she states is much better. She is feeling better. She has walked from her bed to her chair. She is using her IS. LABORATORY DATA: Labs this morning, hemoglobin 8.3, white count 25.6, bilirubin is 1.6. OBJECTIVE: GENERAL: Karena is a 63-year-old female. She is alert and orientated, talkative. VITAL SIGNS: Last temperature at 0200 was 95.3. Vital signs from 05:27, 85, 19, blood pressure 120/58. HEENT: Negative. NECK: Supple. HEART: Regular rate and rhythm. LUNGS: Have improved, but there is less wheezing and stridor. She does have rhonchi with coughing and wheezing remains but shows improvement. ABDOMEN: Dressing dry and intact. The HARRISON drains are intact. Output per EMR. EXTREMITIES: Reveal peripheral edema. ASSESSMENT: A. Dysphagia. B. Exploratory laparotomy with lysis of adhesions and: 1. Revision of the jejunojejunostomy component of the Pati-en-Y gastric bypass surgery. 2. Separate small-bowel resection. 3. Repair of incarcerated incisional hernia. 4. Repair of incarcerated umbilical hernia. PLAN: Continue to work on good pulmonary toilet. Negrete catheter to remain in for accurate intake and output. Evaluate p.r.n. or in a.m. Kenia Valencia PA-C /[id number]
--- NOTE | 2019-08-20 13:40 | OR ---
DATE OF PROCEDURE: 08/12/2019 SURGEON: Jaya Peraza MD PREOPERATIVE DIAGNOSES: 1. 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 2. Marked gastroparesis with persistent gastric bezoar. PROCEDURE PERFORMED: 1. Exploratory laparotomy with partial gastrectomy with Pati-en-Y gastrojejunostomy (93645). 2. Intraoperative upper GI endoscopy to facilitate placement of EEA stapler and anvil (88549). ANESTHESIA: General. MAINFRAME SYSTEMS ENGINEER: Kenia Valencia PA-C. INDICATION FOR PROCEDURE: A 63-year-old noted to have a large gastrogastric fistula status post previous takedown of the band, and the gastrojejunostomy, which was constructed at that time, was also apparently strictured with large amount of retained food within the stomach consistent with gastroparesis. Plan is to proceed with a partial gastrectomy with Pati-en-Y gastrojejunostomy. Potential risks of the procedure including bleeding, infection, leaks from various GI tract closures, problems with bowel obstruction over time, as well as possibility of cardiopulmonary, septic, or hemorrhagic complications leading to were discussed, and the patient wishes to proceed. DESCRIPTION OF PROCEDURE: The patient was taken to the operating room, and after general endotracheal anesthesia was induced, she was placed in a lithotomy position. Negrete catheter was inserted and the abdomen prepped and draped. An upper midline incision was made. This did not connect to the previously used incision earlier this hospitalization for small bowel obstruction. This was carried down through the full-thickness abdominal wall, and upon entering the abdomen, a number of adhesions were taken down and dissection then began in the area of the esophagogastric junction. The stomach at that point was eventually able to be encircled at a point just above the gastrojejunostomy previously constructed and the stomach was then divided at that level with DARRIN black loads. The junction of the gastrojejunostomy was then also divided with the DARRIN stapler and a portion of the stomach essentially the proximal third of the stomach was then resected with DARRIN victorino as well. Mesenteric attachments were likewise divided with DARRIN victorino and the specimen, consisting of the proximal stomach and previous gastrojejunostomy, was then delivered from the field. A 28 EEA anvil had been placed into the stomach above the intended point of the division, and at that point, that had migrated up into quite a dilated esophagus. We attempted to have this be pushed out with a chest tube placed orally, but that was unsuccessful. Given this, upper GI endoscope was then performed, which involved grasping of the anvil stem with a snare and then bringing that down to the divided end of the stomach, where it was then able to be grasped and pulled through the proximal gastric staple line just posterior to the staple line. The anvil of the EEA stapler was then placed into the Pati limb, which was then opened and the two components of the stapler united and fired, thus creating the gastrojejunostomy. Upon removal of stapler, double donuts of mucosa were noted within it. The small bowel was then closed off with a vascular staple line. Gastrojejunostomy was then reinforced with 3-0 Vicryl stitch. Mesenteric defect at that point was then closed with a 3-0 Vicryl stitch. This may leave a defect through the transverse mesocolon with the Pati limb having been routed retrocolic at this point and the gastrojejunostomy was then reinforced with some fibrin sealant. The abdomen was irrigated with meropenem-containing saline solution. A Salo-Kenny drain was taken out through the left subcostal area without complications to the gastrojejunostomy and from there up into the splenic fossa. The midline fascia was then approximated with #2 Vicryl stitch. Subcutaneous tissue was drained with a 15-Portuguese round Salo-Kenny drain that was placed adjacent to the inferior aspect as well, and the drain was sutured to the skin with 3-0 Vicryl stitch. The subcutaneous tissue was approximated with some 3-0 and 4-0 Vicryl stitch deep and victorino for the skin. Dressing was applied. The patient was taken to the recovery room in satisfactory condition. There were no evident complications. Physician health assistant, Kenia Valencia, played an essential role in assisting in this case, helping to position the patient, retract structures as needed, as well as suturing and cutting sutures as needed and stapling as indicated. Her presence improved patient safety and decreased operative time. Jaya Peraza MD Job #: [id number]
--- NOTE | 2019-08-20 13:52 | OR ---
DATE OF PROCEDURE: 08/07/2019 SURGEON: Jaya Peraza MD PREOPERATIVE DIAGNOSIS: Incarcerated incisional hernia. POSTOPERATIVE DIAGNOSES: 1. Incarcerated incisional and incarcerated umbilical hernias. 2. Ischemic segment of small bowel with areas of deserosalization involving distal small bowel, status post takedown of adhesions. 3. Persistent extreme obesity, status post Pati-en-Y gastric bypass. OPERATIVE PROCEDURES: Exploratory laparotomy with lysis of adhesions: 1. Revision of jejunojejunostomy component of Pati-en-Y gastric bypass (63333). 2. Separate small bowel resection (16036). 3. Repair of incarcerated incisional hernia (10089). 4. Repair of incarcerated umbilical hernia (00055). ANESTHESIA: General. INDICATIONS FOR PROCEDURE: A 63-year-old female status post a conversion of the Pati-en-Y gastric bypass from a lap band status several months ago, presenting with a large incarcerated incisional hernia. This contained loops of small bowel with an obstructive pattern seen on the CT scan. Plan is to proceed with an exploratory laparotomy and release of the small bowel obstruction, possible bowel resection, and repair of the hernias. If open bowel is encountered during the course of the procedure, then we would most likely not use mesh. The patient remained extremely obese status post a conversion to Pati-en-Y gastric bypass status, and most likely, we will revise the level of the jejunojejunostomy to provide more in the way of malabsorption and improve the weight loss. Potential risks of the procedure including bleeding; infection; leaks from various GI tract closures; problems with bowel obstruction recurring over time; hernias recurring; as well as possibility of cardiopulmonary, septic, or hemorrhagic complications leading to were all discussed, and the patient wishes to proceed. DETAILS OF PROCEDURE: The patient was taken to the operating room, and after general endotracheal anesthesia was induced, a Negrete catheter was inserted and the abdomen prepped and draped. A midline incision in the lower aspect of the wound was made. This was extended from the umbilicus somewhat upward. This allowed entrance into the area of the incisional hernia and subsequently the area of the umbilical hernia, both containing incarcerated small bowel, and the small bowel as mentioned dissected free. Distal small bowel had a segment of small bowel, which was fairly ischemic and deserosalized after takedown of adhesions. This area was initially resected with bowel proximal and distal to the area of involvement was then divided with the GI stapler. The mesentery was divided with DARRIN victorino as well. The small bowel anastomosis was then accomplished with a side-to- side enteroenterostomy with the DARRIN stapler followed by closure of the common opening from the GI staple as well. The angles were then anastomosed and mesenteric defect was approximated with 3-0 Vicryl stitch. At this point, some additional adhesions were taken down and at that point, the small bowel was mapped out. The Pati limb was noted to be in the range of 80 cm at this point and this was then detached and brought down from the point of original jejunostomy to a point 270 cm proximal to the ileocecal valve. This would give the patient then a Pati limb of 80 cm and a common limb of 270 cm with a total alimentary limb of 350, eventually which was common limb. This substantially increased the patient's biliopancreatic limb which at this point was measured to be around 240 cm. At that point, the [id number] enteroenterostomy was accomplished with an internal firing of the Endo-DARRIN 60 mm stapler followed by second firing of a 30 mm DARRIN stapler and the common opening then closed transversely. The angles of anastomosis were reinforced with some 3-0 Vicryl stitch. The mesenteric defect in this place was closed with some 2-0 silk stitch to provide some permanency. At this point, no further problems noted. The abdomen was irrigated with antibiotic-containing saline solution. Both the umbilical and incisional hernias were then closed with #2 Vicryl stitch. The patient had a large potential space, particularly over the area of the umbilical hernia component. A 15 round Salo-Kenny drain was placed through a stab wound to the right of that and positioned adjacent to the defect. This was then closed with layers of 3-0 and 4-0 Vicryl stitch deep and the skin with victorino. The drain was fixed with a 3-0 Vicryl stitch and dressing applied. The patient was taken to the recovery room. There were no evident complications. Jaya Peraza MD Job #: [id number]
[2019-08-20] MEDS: Lactobacillus Rhamnosus GG (Probiotic) Cap PO SCH ×2 (15:10→21:05)
[2019-08-20] MEDS: Pantoprazole 40 MG Vial IVPUSH SCH (15:15)
--- NOTE | 2019-08-20 15:19 | OR ---
DATE OF PROCEDURE: 08/16/2019 SURGEON: Jaya Peraza MD PREOPERATIVE DIAGNOSIS: Persistent occlusion of gastrojejunostomy. 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 OPERATIVE PROCEDURE: Upper GI endoscopy (08571). ANESTHESIA: IV sedation. INDICATION FOR PROCEDURE: The patient was recently status post a partial proximal gastrectomy with Pati-en-Y gastrojejunostomy. The plan is to proceed with upper GI endoscopy with dilation of the situation and possible dilation. Potential risks including bleeding and perforation were discussed, and the patient wishes to proceed. DETAILS OF PROCEDURE: The patient was taken to the operating room and placed in a left lateral decubitus position. IV sedation was administered. The patient was positioned with a face-down position in the event that she would have some emesis and upon IV sedation, she did have a fair bit of emesis. This appeared to all drain out of her mouth and there was no evidence of any aspiration. Once this was evacuated, the upper GI endoscope was passed orally and some additional fluid removed. As one passed down through the esophagus into the stomach, it became evident that much of the gastric pouch mucosa on its distal aspect was black and necrotic, and there was no visible lumen into the gastrojejunostomy likely related to the marked edema and such in that area. The scope was then withdrawn. Of note, with air insufflation, the Salo-Kenny drain which was adjacent to the gastrojejunostomy fill up with some air indicating a leak at this point as well, and the patient was taken to the recovery room in satisfactory condition. There were no evident complications per se. Jaya Peraza MD Job #: [id number]
--- NOTE | 2019-08-20 15:25 | OR ---
DATE OF PROCEDURE: 08/10/2019 SURGEON: Jaya Peraza MD PREOPERATIVE DIAGNOSIS: Possible gastrogastric fistula based on upper gastrointestinal x- ray. OPERATIVE PROCEDURE: A very large gastrogastric fistula associated with tight stricture of previous gastrojejunostomy. PROCEDURE: Upper gastrointestinal endoscopy. ANESTHESIA: IV sedation. INDICATION FOR PROCEDURE: This is a 63-year-old status post conversion of a laparoscopic gastric band status to Pati-en-Y gastric bypass several months ago, who presents now with small bowel obstruction. An upper GI x-ray was obtained, which was somewhat suggestive of there being a fistula with much of the dye following a course consistent with stomach and proximal duodenum. To investigate this issue, the patient will undergo an upper GI endoscopy. Potential risks of procedure including bleeding and perforation were discussed, and the patient wishes to proceed. DETAILS OF PROCEDURE: The patient was taken to operating room, placed in the left lateral decubitus position. IV sedation was administered, after which the upper GI endoscope was passed orally through the length of esophagus and into the area of the stomach. The patient was noted to have a large gastrogastric fistula. Much of the staple line, including the area around the band imprint, had come open, and there was essentially a wide-open exit from the esophagus and proximal stomach into the remainder of the stomach. The previous gastrojejunostomy was extremely stenotic at this point, the latter likely resulting in occlusive staple line to have come undone. The remainder of the gastric, duodenum, and antrum unremarkable. Scope was then withdrawn. Procedure was then concluded. Jaya Peraza MD Job #: [id number]
[2019-08-20] MEDS ORDERED: Calcium Gluconate 2 GM in Sodium Chloride 0.9% 100 ML IV ONE (18:41)
[2019-08-20] MEDS ORDERED: Potassium Chloride 20 MEQ Tab.ER PO ONE (18:41)
[2019-08-21] MEDS: HYDROmorphone/Normal Saline 15 MG/30 ML PCA IV PRN (01:07)
[2019-08-21] MEDS: methylPREDNISolone Sodium Succinate 40 MG/1 ML SDV IVPUSH SCH (03:18)
[2019-08-21] MEDS: Acetylcysteine 20% 200 MG/ML 4 ML Nebulizer Soln SDV INH SCH ×3 (07:18→20:56)
[2019-08-21] MEDS: Albuterol/Ipratropium 3.0-0.5 MG/3 ML Neb Soln INH SCH ×4 (07:18→20:56)
[2019-08-21] MEDS: Furosemide 20 MG/2 ML VIAL IVPUSH SCH ×2 (08:19→16:28)
[2019-08-21] MEDS ORDERED: Potassium Chloride 10% 20 MEQ/15 ML Soln 15 ML UD Cup GTUBE ONE (09:00)
[2019-08-21] MEDS: Meropenem 500 MG in Sodium Chloride 0.9% 50 ML IV SCH ×2 (09:27→21:57)
[2019-08-21] MEDS: Heparin Sodium 5,000 Units/ML Vial SUBCUT SCH ×2 (09:34→21:24)
--- NOTE | 2019-08-21 09:43 | PCM.CONSN ---
- General Info Date of Service: 08/21/19 Subjective Update: Ms. Thornton is showing further improvement over last 24 hours, creatinine is now down to 2.1, with good improvement in urine output. Respiratory status also admission further improvement with less shortness of breath, continued cough with clear sputum. Functional Status: Reports: Tolerating Diet - Review of Systems General: Reports: Weakness. Denies: Fever, Chills Pulmonary: Reports: Shortness of Breath, Cough, Sputum. Denies: Hemoptysis, Wheezing Cardiovascular: Reports: No Symptoms Gastrointestinal: Reports: Abdominal Pain. Denies: Difficulty Swallowing, Nausea, Vomiting - Patient Data Vitals - Most Recent: Last Vital Signs Temp 97.2 F 08/21/19 04:00 Pulse 68 08/21/19 07:19 Resp 17 08/21/19 06:00 BP 142/69 H 08/21/19 06:00 Pulse Ox 91 L 08/21/19 07:19 Weight - Most Recent: 403 lb 12.8 oz I&O - Last 24 Hours: Intake & Output 08/20/19 08/21/19 08/21/19 22:59 06:59 14:59 Intake Total 1386 855 Output Total 450 675 550 Balance 936 180 -550 Lab Results Last 24 Hours: Laboratory Results - last 24 hr 08/20/19 08/20/19 08/21/19 Range/Units 17:00 17:00 04:30 WBC 24.4 H (4.5-11.0) K/uL RBC 2.88 L (3.30-5.50) M/uL Hgb 7.9 L (12.0-15.0) g/dL Hct 26.4 L (36.0-48.0) % MCV 92 (80-98) fL MCH 27 (27-31) pg MCHC 30 L (32-36) % Plt Count 593 H (150-400) K/uL Add Manual Diff Yes Neutrophils % (Manual) 78 H (36-66) % Band Neutrophils % 7 (5-11) % Lymphocytes % (Manual) 6 L (24-44) % Monocytes % (Manual) 4 (2-6) % Basophils % (Manual) 1 (0-1) % Blast Cells % 4 % Sodium 140 (140-148) mmol/L Potassium 3.4 L (3.6-5.2) mmol/L Chloride 104 (100-108) mmol/L Carbon Dioxide 26 (21-32) mmol/L Anion Gap 13.4 (5.0-14.0) mmol/L BUN 42 H (7-18) mg/dL Creatinine 2.6 H (0.6-1.0) mg/dL Est Cr Clr Drug Dosing 19.62 mL/min Estimated GFR (MDRD) 19 L (>60) Glucose 140 H (74-106) mg/dL Calcium 8.2 L (8.5-10.1) mg/dL POC WB Ioniz Calcium 1.08 L (1.12-1.32) mmol/L Phosphorus (2.5-4.9) mg/dL Magnesium (1.8-2.4) mg/dL Total Bilirubin (0.2-1.0) mg/dL AST (15-37) U/L ALT (12-78) U/L Alkaline Phosphatase (46-116) U/L Total Protein (6.4-8.2) g/dL Albumin (3.4-5.0) g/dL Globulin (2.3-3.5) g/dL Albumin/Globulin Ratio (1.2-2.2) 08/21/19 08/21/19 Range/Units 04:30 04:30 WBC (4.5-11.0) K/uL RBC (3.30-5.50) M/uL Hgb (12.0-15.0) g/dL Hct (36.0-48.0) % MCV (80-98) fL MCH (27-31) pg MCHC (32-36) % Plt Count (150-400) K/uL Add Manual Diff Neutrophils % (Manual) (36-66) % Band Neutrophils % (5-11) % Lymphocytes % (Manual) (24-44) % Monocytes % (Manual) (2-6) % Basophils % (Manual) (0-1) % Blast Cells % % Sodium 142 (140-148) mmol/L Potassium 3.5 L (3.6-5.2) mmol/L Chloride 106 (100-108) mmol/L Carbon Dioxide 27 (21-32) mmol/L Anion Gap 12.5 (5.0-14.0) mmol/L BUN 41 H (7-18) mg/dL Creatinine 2.2 H (0.6-1.0) mg/dL Est Cr Clr Drug Dosing 23.19 mL/min Estimated GFR (MDRD) 23 L (>60) Glucose 115 H (74-106) mg/dL Calcium 8.3 L (8.5-10.1) mg/dL POC WB Ioniz Calcium 1.10 L (1.12-1.32) mmol/L Phosphorus 5.4 H (2.5-4.9) mg/dL Magnesium 3.2 H D (1.8-2.4) mg/dL Total Bilirubin 1.4 H (0.2-1.0) mg/dL AST 25 (15-37) U/L ALT 55 (12-78) U/L Alkaline Phosphatase 109 (46-116) U/L Total Protein 5.5 L (6.4-8.2) g/dL Albumin 1.3 L (3.4-5.0) g/dL Globulin 4.2 H (2.3-3.5) g/dL Albumin/Globulin Ratio 0.3 L (1.2-2.2) Wero Results Last 24 Hours: Microbiology 08/16/19 17:48 Gram Stain - Final Abdomen - Drainage Wound Culture - Final Morganella Morganii Yeast Isolated Viridans Streptococcus Gram Positive Rods Anaerobic Culture - Final NO GROWTH AFTER 3 DAYS 08/16/19 17:05 Gram Stain - Final Abdomen - Abscess Wound Culture - Final Yeast Isolated Gram Positive Rods Viridans Streptococcus Anaerobic Culture - Final NO GROWTH AFTER 3 DAYS Med Orders - Current: Current Medications Acetylcysteine (Mucomyst 20%) 200 mg INH TID@0700,1500,2100 [facility] Last Admin: 08/21/19 07:18 Dose: 200 mg Albuterol/Ipratropium (Duoneb 3.0-0.5 Mg/3 Ml) 3 ml INH QIDRT [facility] Last Admin: 08/21/19 07:18 Dose: 3 ml Albuterol/Ipratropium (Duoneb 3.0-0.5 Mg/3 Ml) 3 ml NEB Q2H PRN PRN Reason: wheezing/stridor Last Admin: 08/19/19 18:10 Dose: 3 ml Benzocaine/Menthol (Cepacol Sore Throat) 1 lozenge MUCMEM ASDIRECTED PRN PRN Reason: sore throat Last Admin: 08/19/19 16:53 Dose: 1 alina Budesonide (Pulmicort) 0.5 mg NEB BIDRT [facility] Diphenhydramine HCl (Benadryl) 50 mg IVPUSH Q4H PRN PRN Reason: ITCHING Last Admin: 08/17/19 22:31 Dose: 50 mg Furosemide (Lasix) 20 mg IVPUSH Q8H [facility] Stop: 08/21/19 17:01 Last Admin: 08/21/19 08:19 Dose: 20 mg Heparin Sodium (Porcine) (Heparin Sodium) 5,000 units SUBCUT Q12H [facility] Last Admin: 08/21/19 09:34 Dose: 5,000 units Hydromorphone HCl (Dilaudid [employer] 15 Mg In Ns 30 Ml) 0 mg IV ASDIRECTED PRN; Protocol PRN Reason: [employer] PAIN CONTROL Last Admin: 08/21/19 01:07 Dose: 15 mg Hydroxyzine HCl (Vistaril) 100 mg IM Q4H PRN PRN Reason: pain Last Admin: 08/16/19 20:47 Dose: 100 mg Heparin Sodium (Porcine) 5,000 (units/ Sodium Chloride) 501 mls @ 1 mls/hr IV ASDIRECTED [facility] Last Admin: 08/20/19 11:17 Dose: 1 mls/hr Linezolid 600 mg/ Premix 300 mls @ 300 mls/hr IV Q12H [facility] Last Admin: 08/20/19 20:54 Dose: 300 mls/hr Meropenem 500 mg/ Sodium (Chloride) 50 mls @ 100 mls/hr IV Q12H [facility] Last Admin: 08/21/19 09:27 Dose: 100 mls/hr Dextrose/Lactated Ringer's (Dextrose 5%-Lactated Ringers) 1,000 mls @ 25 mls/ hr IV ASDIRECTED [facility] Albumin Human (Albumin 25%) 25 gm in 100 mls @ 25 mls/hr IV Q24H [facility] Stop: 08/24/19 13:59 Albumin Human (Albumin 25%) 25 gm in 100 mls @ 25 mls/hr IV Q24H [facility] Stop: 08/24/19 17:59 Labetalol HCl (Normodyne) 5 mg IVPUSH Q5M PRN PRN Reason: SBP over 160 OR DBP over 95 Lactobacillus Rhamnosus (Culturelle) 1 cap PO BID [facility] Last Admin: 08/20/19 21:05 Dose: 1 cap Metoclopramide HCl (Reglan) 10 mg IVPUSH Q6H PRN PRN Reason: NAUSEA NOT CONTROL BY ZOFRAN Last Admin: 08/16/19 08:03 Dose: 10 mg Naloxone HCl (Narcan) 0.1 mg IV ASDIRECTED PRN PRN Reason: decreased respiratory rate Ondansetron HCl (Zofran) 4 mg IV Q4H PRN PRN Reason: Nausea/Vomiting Last Admin: 08/15/19 20:07 Dose: 4 mg Pantoprazole Sodium (Protonix Iv) 40 mg IVPUSH Q24H [facility] Last Admin: 08/20/19 15:15 Dose: 40 mg Sodium Chloride (Saline Flush) 10 ml IV ASDIRECTED 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 Acetaminophen (Tylenol) 650 mg PO Q6H [facility] Last Admin: 08/12/19 17:42 Dose: 650 mg Acetaminophen (Tylenol) 650 mg PO Q6H [facility] Last Admin: 08/17/19 13:39 Dose: Not Given Albuterol/Ipratropium (Duoneb 3.0-0.5 Mg/3 Ml) 3 ml INH ONETIME ONE Stop: 08/07/19 10:01 Last Admin: 08/07/19 09:28 Dose: 3 ml Albuterol/Ipratropium (Duoneb 3.0-0.5 Mg/3 Ml) 3 ml INH QIDRT [facility] Last Admin: 08/14/19 07:33 Dose: Not Given Albuterol/Ipratropium (Duoneb 3.0-0.5 Mg/3 Ml) 3 ml INH ASDIRECTED PRN PRN Reason: BREATHING Albuterol/Ipratropium (Duoneb 3.0-0.5 Mg/3 Ml) 3 ml INH Q6H PRN PRN Reason: Shortness of Breath Albuterol/Ipratropium (Duoneb 3.0-0.5 Mg/3 Ml) 3 ml INH ASDIRECTED PRN PRN Reason: BREATHING Last Admin: 08/18/19 17:50 Dose: 3 ml Bumetanide (Bumex) 1 mg IVPUSH ONETIME ONE Stop: 08/18/19 08:50 Last Admin: 08/18/19 09:19 Dose: 1 mg Bumetanide (Bumex) 1 mg IVPUSH ONETIME ONE Stop: 08/18/19 23:26 Last Admin: 08/18/19 23:46 Dose: 1 mg Bupivacaine HCl/Epinephrine Bitart (Marcaine 0.5%/Epinephrine 1:200,000) Confirm Administered Dose 50 ml .ROUTE .STK-MED ONE Stop: 08/07/19 07:03 Celecoxib (Celebrex) 200 mg PO DAILY@0800 [facility] Last Admin: 08/16/19 08:13 Dose: Not Given Ropivacaine 60 ml/Dexamethasone 8 mg/Epinephrine HCl 0.4 mg/ Sodium Chloride 17.6 ml 0 ml NERVRT ASDIRECTED [facility] Last Admin: 08/07/19 10:28 Dose: 80 syringe Ropivacaine 60 ml/Dexamethasone 8 mg/Epinephrine HCl 0.4 mg/ Sodium Chloride 17.6 ml 0 ml NERVRT ASDIRECTED [facility] Last Admin: 08/12/19 12:00 Dose: 80 syringe Ropivacaine 60 ml/Dexamethasone 8 mg/Epinephrine HCl 0.4 mg/ Sodium Chloride 17.6 ml 0 ml NERVRT ASDIRECTED [facility] Last Admin: 08/16/19 17:15 Dose: 80 syringe Cyanocobalamin (Vitamin B12) 1,000 mcg IM ONETIME ONE Stop: 08/09/19 09:01 Last Admin: 08/09/19 08:06 Dose: 1,000 mcg Cyanocobalamin (Vitamin B12) 1,000 mcg IM ONETIME ONE Stop: 08/14/19 09:01 Last Admin: 08/14/19 08:01 Dose: 1,000 mcg Cyclobenzaprine HCl (Flexeril) 10 mg PO Q8H PRN PRN Reason: MUSCLE SPASM Dexamethasone (Dexamethasone) Confirm Administered Dose 4 mg .ROUTE .STK-MED ONE Stop: 08/07/19 08:03 Dexamethasone (Dexamethasone) Confirm Administered Dose 4 mg .ROUTE .STK-MED ONE Stop: 08/12/19 09:24 Dexamethasone (Dexamethasone) Confirm Administered Dose 4 mg .ROUTE .STK-MED ONE Stop: 08/16/19 16:33 Dextrose/Water (Dextrose 50% In Water) 50 ml IVPUSH ONETIME PRN PRN Reason: ACCUCHECK LESS THAN 70 Diphenhydramine HCl (Benadryl) 25 - 50 mg PO Q4H PRN PRN Reason: Itching Last Admin: 08/11/19 12:32 Dose: 50 mg Fentanyl (Sublimaze) Confirm Administered Dose 250 mcg .ROUTE .STK-MED ONE Stop: 08/07/19 08:03 Fentanyl (Sublimaze) Confirm Administered Dose 100 mcg .ROUTE .STK-MED ONE Stop: 08/07/19 10:58 Fentanyl (Sublimaze) Confirm Administered Dose 100 mcg .ROUTE .STK-MED ONE Stop: 08/07/19 12:59 Fentanyl (Sublimaze) Confirm Administered Dose 100 mcg .ROUTE .STK-MED ONE Stop: 08/10/19 08:30 Fentanyl (Sublimaze) Confirm Administered Dose 250 mcg .ROUTE .STK-MED ONE Stop: 08/12/19 09:24 Fentanyl (Sublimaze) Confirm Administered Dose 250 mcg .ROUTE .STK-MED ONE Stop: 08/12/19 11:34 Fentanyl (Sublimaze) Confirm Administered Dose 100 mcg .ROUTE .STK-MED ONE Stop: 08/16/19 11:59 Fentanyl (Sublimaze) Confirm Administered Dose 100 mcg .ROUTE .STK-MED ONE Stop: 08/16/19 12:20 Fentanyl (Sublimaze) 100 mcg IVPUSH ONETIME ONE Stop: 08/16/19 15:56 Last Admin: 08/16/19 16:01 Dose: 100 mcg Fentanyl (Sublimaze) Confirm Administered Dose 250 mcg .ROUTE .STK-MED ONE Stop: 08/16/19 16:32 Furosemide (Lasix) 20 mg IV ONETIME ONE Stop: 08/15/19 09:31 Last Admin: 08/15/19 09:01 Dose: 20 mg Furosemide (Lasix) 20 mg IVPUSH ONETIME ONE Stop: 08/16/19 08:01 Last Admin: 08/16/19 08:55 Dose: 20 mg Furosemide (Lasix) 10 mg IVPUSH ONETIME STA Stop: 08/17/19 21:06 Last Admin: 08/17/19 21:19 Dose: 10 mg Furosemide (Lasix) Confirm Administered Dose 20 mg .ROUTE .STK-MED ONE Stop: 08/17/19 21:16 Last Admin: 08/17/19 22:02 Dose: Not Given Furosemide (Lasix) 10 mg IVPUSH ONETIME STA Stop: 08/18/19 01:14 Last Admin: 08/18/19 01:22 Dose: 10 mg Gabapentin (Neurontin) 300 mg PO TID [facility] Last Admin: 08/12/19 15:13 Dose: Not Given Gabapentin (Neurontin) 300 mg PO TID [facility] Last Admin: 08/17/19 13:39 Dose: Not Given Glucagon (Glucagen) 1 mg IM ONETIME PRN PRN Reason: ACCUCHECK LESS THAN 70 Glycopyrrolate (Robinul) Confirm Administered Dose 1 mg .ROUTE .STK-MED ONE Stop: 08/07/19 10:20 Glycopyrrolate (Glycopyrrolate) 0.4 mg IVPUSH ONCALL ONE Stop: 08/10/19 08:31 Last Admin: 08/10/19 11:03 Dose: Not Given Glycopyrrolate (Robinul) Confirm Administered Dose 1 mg .ROUTE .STK-MED ONE Stop: 08/12/19 09:24 Glycopyrrolate (Glycopyrrolate) 0.4 mg IVPUSH ONCALL ONE Stop: 08/16/19 12:01 Last Admin: 08/16/19 14:59 Dose: 0.4 mg Glycopyrrolate (Robinul) Confirm Administered Dose 1 mg .ROUTE .STK-MED ONE Stop: 08/16/19 16:33 Heparin Sodium (Porcine) (Heparin Sodium) 5,000 units SUBCUT Q12H [facility] Last Admin: 08/11/19 05:45 Dose: 5,000 units Heparin Sodium (Porcine) (Heparin Sodium) 5,000 units SUBCUT Q12H [facility] Last Admin: 08/17/19 13:39 Dose: Not Given Heparin Sodium (Porcine) (Heparin Lock Flush 100 Units/Ml) Confirm Administered Dose 500 units .ROUTE .STK-MED ONE Stop: 08/16/19 16:45 Last Admin: 08/17/19 06:30 Dose: 500 units Heparin Sodium (Porcine) (Heparin Lock Flush 100 Units/Ml) Confirm Administered Dose 500 units .ROUTE .STK-MED ONE Stop: 08/16/19 20:12 Hydromorphone HCl (Dilaudid Highway [employer]per 15 Mg In Ns 30 Ml) 0 mg IV ASDIRECTED PRN; Protocol PRN Reason: Pain Last Admin: 08/06/19 23:30 Dose: 15 mg Hydromorphone HCl (Dilaudid) 0.5 mg IVPUSH Q2H PRN PRN Reason: MODERATE PAIN Last Admin: 08/16/19 13:36 Dose: 0.5 mg Hydromorphone HCl (Dilaudid) 1 mg IV Q2H PRN PRN Reason: SEVERE PAIN Last Admin: 08/16/19 11:06 Dose: 1 mg Hydroxyzine HCl (Vistaril) 100 mg IM ONETIME ONE Stop: 08/07/19 14:03 Last Admin: 08/07/19 14:14 Dose: 100 mg Dextrose/Lactated Ringer's (Dextrose 5%-Lactated Ringers) 1,000 mls @ 125 mls/ hr IV ASDIRECTED [facility] Last Admin: 08/07/19 06:11 Dose: 125 mls/hr Linezolid (Zyvox) Confirm Administered Dose 300 mls @ as directed .ROUTE .STK- MED ONE Stop: 08/07/19 07:03 Lidocaine HCl/Dextrose (Lidocaine 2 Gm/D5w 500 Ml) 2 gm in 500 mls @ 15 mls/hr IV .Q24H [facility] Last Admin: 08/07/19 20:31 Dose: Not Given Ketamine HCl 50 mg/ Sodium (Chloride) 50 mls @ 16.2 mls/hr IV ASDIRECTED [facility] Meropenem 500 mg/ Sodium (Chloride) 50 mls @ 100 mls/hr IV ONETIME ONE Stop: 08/07/19 10:29 Last Admin: 08/07/19 09:28 Dose: 100 mls/hr Lidocaine HCl/Dextrose (Lidocaine 2 Gm/D5w 500 Ml) 2 gm in 500 mls @ 15 mls/hr IV .Q24H [facility] Stop: 08/08/19 11:01 Last Admin: 08/08/19 11:26 Dose: Not Given Dextrose/Lactated Ringer's (Dextrose 5%-Lactated Ringers) 1,000 mls @ 200 mls/ hr IV ASDIRECTED [facility] Stop: 08/08/19 17:59 Last Admin: 08/08/19 04:10 Dose: 200 mls/hr Multivitamins/Minerals 10 ml/Thiamine HCl 200 mg/ Chromium/Copper/Manganese/ Seleni/Zn 1 ml/ Dextrose/Lactated Ringer's 1,013 mls @ 174.999 mls/hr IV DAILY@ 1600 [facility] Last Admin: 08/07/19 17:02 Dose: 174.999 mls/hr Meropenem 500 mg/ Sodium (Chloride) 50 mls @ 100 mls/hr IV Q6H [facility] Stop: 08/08/19 22:29 Last Admin: 08/08/19 15:33 Dose: Not Given Dextrose/Lactated Ringer's (Dextrose 5%-Lr) 500 mls @ 500 mls/hr IV ONETIME ONE Stop: 08/08/19 01:29 Last Admin: 08/08/19 00:44 Dose: Not Given Lactated Ringer's (Ringers, Lactated) 500 mls @ 500 mls/hr IV ONETIME ONE Stop: 08/08/19 01:44 Last Admin: 08/08/19 00:48 Dose: 500 mls/hr Magnesium Sulfate 2 gm/ Premix 50 mls @ 25 mls/hr IV Q6H [facility] Stop: 08/10/19 05:59 Last Admin: 08/08/19 10:18 Dose: 25 mls/hr Dextrose/Lactated Ringer's (Dextrose 5%-Lactated Ringers) 1,000 mls @ 100 mls/ hr IV ASDIRECTED [facility] Potassium Phosphate 22.5 mmole (/ Sodium Chloride) 257.5 mls @ 86 mls/hr IV Q3H [facility] Stop: 08/09/19 15:59 Last Admin: 08/09/19 13:11 Dose: 86 mls/hr Dextrose/Lactated Ringer's (Dextrose 5%-Lactated Ringers) 1,000 mls @ 100 mls/ hr IV ASDIRECTED [facility] Last Admin: 08/11/19 21:16 Dose: 100 mls/hr Lidocaine HCl/Dextrose (Lidocaine 2 Gm/D5w 500 Ml) 2 gm in 500 mls @ 15 mls/hr IV .Q24H [facility] Stop: 08/13/19 14:00 Last Admin: 08/13/19 09:21 Dose: Not Given Ketamine HCl 50 mg/ Sodium (Chloride) 50 mls @ 16.41 mls/hr IV ASDIRECTED [facility] Meropenem 500 mg/ Sodium (Chloride) 50 mls @ 100 mls/hr IV ONCALL ONE Stop: 08/12/19 10:29 Last Admin: 08/12/19 10:31 Dose: 100 mls/hr Lactated Ringer's (Ringers, Lactated) Confirm Administered Dose 1,000 mls @ as directed .ROUTE .STK-MED ONE Stop: 08/12/19 09:29 Dextrose/Lactated Ringer's (Dextrose 5%-Lactated Ringers) 1,000 mls @ 175 mls/ hr IV ASDIRECTED [facility] Last Admin: 08/13/19 06:27 Dose: 175 mls/hr Multivitamins/Minerals 10 ml/Thiamine HCl 200 mg/ Chromium/Copper/Manganese/ Seleni/Zn 1 ml/ Dextrose/Lactated Ringer's 1,013 mls @ 175 mls/hr IV DAILY@ 1600 [facility] Last Admin: 08/13/19 17:37 Dose: 175 mls/hr Meropenem 500 mg/ Sodium (Chloride) 50 mls @ 100 mls/hr IV Q6H [facility] Stop: 08/13/19 22:59 Last Admin: 08/13/19 22:09 Dose: 100 mls/hr Magnesium Sulfate 2 gm/ Premix 50 mls @ 25 mls/hr IV Q6H [facility] Stop: 08/15/19 15:59 Last Admin: 08/15/19 13:30 Dose: 25 mls/hr Dextrose/Lactated Ringer's (Dextrose 5%-Lactated Ringers) 1,000 mls @ 125 mls/ hr IV ASDIRECTED [facility] Last Admin: 08/15/19 08:04 Dose: 125 mls/hr Multivitamins/Minerals 10 ml/Thiamine HCl 200 mg/ Chromium/Copper/Manganese/ Seleni/Zn 1 ml/ Dextrose/Lactated Ringer's 1,013 mls @ 125 mls/hr IV DAILY@ 1100 [facility] Last Admin: 08/14/19 10:50 Dose: 125 mls/hr Dextrose/Lactated Ringer's (Dextrose 5%-Lactated Ringers) 1,000 mls @ 80 mls/ hr IV ASDIRECTED [facility] Last Admin: 08/16/19 06:39 Dose: 80 mls/hr Multivitamins/Minerals 10 ml/Thiamine HCl 200 mg/ Chromium/Copper/Manganese/ Seleni/Zn 1 ml/ Dextrose/Lactated Ringer's 1,013 mls @ 80 mls/hr IV DAILY@1600 [facility] Last Admin: 08/17/19 13:38 Dose: Not Given Meropenem 500 mg/ Sodium (Chloride) 50 mls @ 100 mls/hr IV ONCALL ONE Stop: 08/16/19 15:59 Last Admin: 08/16/19 15:37 Dose: 100 mls/hr Aztreonam 1 gm/ Sodium (Chloride) 50 mls @ 100 mls/hr IV ONETIME ONE Stop: 08/16/19 16:14 Last Admin: 08/16/19 15:51 Dose: 100 mls/hr Ketamine HCl 50 mg/ Sodium (Chloride) 50 mls @ 16.41 mls/hr IV ASDIRECTED [facility] Lidocaine HCl/Dextrose (Lidocaine 2 Gm/D5w 500 Ml) 2 gm in 500 mls @ 15 mls/hr IV .Q24H [facility] Stop: 08/17/19 16:31 Last Admin: 08/17/19 16:42 Dose: Not Given Lactated Ringer's (Ringers, Lactated) Confirm Administered Dose 1,000 mls @ as directed .ROUTE .STK-MED ONE Stop: 08/16/19 17:08 Sodium Chloride (Normal Saline) Confirm Administered Dose 100 mls @ as directed .ROUTE .STK-MED ONE Stop: 08/16/19 18:24 Last Admin: 08/16/19 22:22 Dose: Not Given Lactated Ringer's (Ringers, Lactated) Confirm Administered Dose 1,000 mls @ as directed .ROUTE .STK-MED ONE Stop: 08/16/19 18:36 Dextrose/Water (Dextrose 5% In Water) Confirm Administered Dose 250 mls @ as directed .ROUTE .STK-MED ONE Stop: 08/16/19 20:42 Last Admin: 08/16/19 22:22 Dose: Not Given Dextrose/Lactated Ringer's (Dextrose 5%-Lactated Ringers) 1,000 mls @ 200 mls/ hr IV ASDIRECTED [facility] Last Admin: 08/18/19 22:27 Dose: 200 mls/hr Multivitamins/Minerals 10 ml/Thiamine HCl 200 mg/ Chromium/Copper/Manganese/ Seleni/Zn 1 ml/ Dextrose/Lactated Ringer's 1,013 mls @ 200 mls/hr IV DAILY@ 1600 [facility] Meropenem 500 mg/ Sodium (Chloride) 50 mls @ 100 mls/hr IV Q6H [facility] Last Admin: 08/17/19 09:50 Dose: 100 mls/hr Aztreonam 1 gm/ Sodium (Chloride) 50 mls @ 100 mls/hr IV Q8H [facility] Last Admin: 08/17/19 06:13 Dose: 100 mls/hr Norepinephrine Bitartrate 4 mg (/ Dextrose/Water) 250 mls @ 7.5 mls/hr IV TITRATE [facility]; Protocol Last Titration: 08/19/19 10:02 Dose: 0 mcg/min, 0 mls/hr Lactated Ringer's (Ringers, Lactated) 500 mls @ 1,000 mls/hr IV .BOLUS [facility] Last Admin: 08/17/19 08:40 Dose: 1,000 mls/hr Lactated Ringer's (Ringers, Lactated) 500 mls @ 999 mls/hr IV .BOLUS [facility] Last Admin: 08/17/19 05:51 Dose: 999 mls/hr Aztreonam 1 gm/ Sodium (Chloride) 50 mls @ 100 mls/hr IV Q8HR [facility] Last Admin: 08/19/19 05:07 Dose: 100 mls/hr Lactated Ringer's (Ringers, Lactated) 500 mls @ 0 mls/hr IV ASDIRECTED [facility] Stop: 08/17/19 08:31 Multivitamins/Minerals 10 ml/Thiamine HCl 200 mg/ Chromium/Copper/Manganese/ Seleni/Zn 1 ml/ Dextrose/Lactated Ringer's 1,013 mls @ 200 mls/hr IV DAILY@ 1000 [facility] Last Admin: 08/18/19 12:21 Dose: 200 mls/hr Lactated Ringer's (Ringers, Lactated) 500 mls @ 999 mls/hr IV ASDIRECTED [facility]ERNER Stop: 08/17/19 11:16 Last Admin: 08/17/19 10:21 Dose: 999 mls/hr Lactated Ringer's (Ringers, Lactated) 500 mls @ 999 mls/hr IV ASDIRECTED [facility]ERN[facility] Stop: 08/17/19 12:46 Last Admin: 08/17/19 12:16 Dose: 999 mls/hr Lactated Ringer's (Ringers, Lactated) 500 mls @ 999 mls/hr IV ASDIRECTED [facility]ERN[facility] Stop: 08/17/19 15:01 Last Admin: 08/17/19 14:28 Dose: 999 mls/hr Lactated Ringer's (Ringers, Lactated) 500 mls @ 999 mls/hr IV ASDIRECTED [facility] Stop: 08/17/19 18:31 Last Admin: 08/17/19 17:59 Dose: 999 mls/hr Lactated Ringer's (Ringers, Lactated) 500 mls @ 500 mls/hr IV BOLUS ONE Stop: 08/17/19 20:29 Last Admin: 08/17/19 19:35 Dose: 500 mls/hr Lactated Ringer's (Ringers, Lactated) 500 mls @ 500 mls/hr IV .BOLUS WERNER Last Admin: 08/18/19 03:13 Dose: 500 mls/hr Lactated Ringer's (Ringers, Lactated) 500 mls @ 500 mls/hr IV STAT WERNER Last Admin: 08/18/19 05:18 Dose: 500 mls/hr Magnesium Sulfate 2 gm/ Premix 50 mls @ 25 mls/hr IV Q6H [facility] Stop: 08/20/19 05:59 Last Admin: 08/20/19 03:10 Dose: 25 mls/hr Calcium Gluconate 2 gm/ Sodium (Chloride) 120 mls @ 100 mls/hr IV Q6H [facility] Stop: 08/18/19 17:11 Last Admin: 08/18/19 15:38 Dose: 100 mls/hr Calcium Gluconate 2 gm/ Sodium (Chloride) 120 mls @ 60 mls/hr IV Q6H [facility] Stop: 08/19/19 01:44 Last Admin: 08/18/19 23:13 Dose: 60 mls/hr Calcium Gluconate 2 gm/ Sodium (Chloride) 120 mls @ 100 mls/hr IV Q6H [facility] Stop: 08/19/19 16:11 Last Admin: 08/19/19 15:50 Dose: 100 mls/hr Calcium Gluconate 2 gm/ Sodium (Chloride) 120 mls @ 100 mls/hr IV ONETIME ONE Stop: 08/19/19 19:34 Last Admin: 08/19/19 18:42 Dose: 100 mls/hr Calcium Gluconate 2 gm/ Sodium (Chloride) 120 mls @ 100 mls/hr IV ONETIME ONE Stop: 08/20/19 19:52 Last Admin: 08/20/19 20:13 Dose: 100 mls/hr Insulin Human Lispro (Humalog) 5 unit SUBCUT ONETIME ONE Stop: 08/07/19 14:01 Last Admin: 08/07/19 15:07 Dose: 5 units Insulin Human Lispro (Humalog) 0 unit SUBCUT Q6H PRN; Protocol PRN Reason: CORRECTIONAL DOSING Last Admin: 08/13/19 04:12 Dose: 9 unit Iopamidol (Isovue-300 (61%)) 50 ml PO ASDIRECTED ONE Stop: 08/08/19 04:27 Last Admin: 08/08/19 04:43 Dose: 50 ml Iopamidol (Isovue-300 (61%)) 20 ml PO ASDIRECTED ONE Stop: 08/13/19 04:21 Last Admin: 08/13/19 04:34 Dose: 20 ml Ketamine HCl (Ketalar) 27 mg IV ASDIRECTED WERNER Ketamine HCl (Ketalar) 27 mg IV ASDIRECTED WERNER Ketamine HCl (Ketalar) 27 mg IV ASDIRECTED WERNER Ketorolac Tromethamine (Toradol) Confirm Administered Dose 60 mg .ROUTE .STK- MED ONE Stop: 08/07/19 08:03 Lidocaine HCl (Xylocaine 2%) 100 mg IVPUSH ASDIRECTED WERNER Lidocaine HCl (Xylocaine 2%) 100 mg IVPUSH ASDIRECTED WERNER Lidocaine HCl (Xylocaine 2%) 100 mg IVPUSH ASDIRECTED WERNER Linezolid (Zyvox) 600 mg IRR .STK-MED ONE Stop: 08/07/19 12:08 Last Admin: 08/07/19 12:07 Dose: 600 mg Lorazepam (Ativan) 0.5 - 1 mg IV Q4H PRN PRN Reason: ANXIETY Last Admin: 08/15/19 09:01 Dose: 1 mg Losartan Potassium (Cozaar) 50 mg PO DAILY WERNER Last Admin: 08/16/19 08:13 Dose: Not Given Meperidine HCl (Demerol) 100 mg IM ONETIME ONE Stop: 08/07/19 14:02 Last Admin: 08/07/19 14:08 Dose: 100 mg Meropenem (Merrem) Confirm Administered Dose 500 mg .ROUTE .STK-MED ONE Stop: 08/07/19 07:03 Last Admin: 08/07/19 12:06 Dose: 500 mg Meropenem (Merrem) Confirm Administered Dose 500 mg .ROUTE .STK-MED ONE Stop: 08/12/19 06:59 Last Admin: 08/12/19 11:25 Dose: 500 mg Meropenem (Merrem) Confirm Administered Dose 500 mg .ROUTE .STK-MED ONE Stop: 08/16/19 17:03 Last Admin: 08/16/19 17:37 Dose: 500 mg Meropenem (Merrem) Confirm Administered Dose 1,500 mg .ROUTE .STK-MED ONE Stop: 08/16/19 18:09 Last Admin: 08/16/19 18:17 Dose: 1,500 mg Meropenem (Merrem) Confirm Administered Dose 500 mg .ROUTE .STK-MED ONE Stop: 08/16/19 18:25 Methylprednisolone Sodium Succinate (Solu-Medrol) 40 mg IVPUSH Q6H [facility] Last Admin: 08/20/19 03:09 Dose: 40 mg Methylprednisolone Sodium Succinate (Solu-Medrol) 40 mg IVPUSH Q12H [facility] Last Admin: 08/21/19 03:18 Dose: 40 mg Midazolam HCl (Versed 1 Mg/Ml) Confirm Administered Dose 2 mg .ROUTE .STK-MED ONE Stop: 08/07/19 09:50 Midazolam HCl (Versed 1 Mg/Ml) Confirm Administered Dose 2 mg .ROUTE .STK-MED ONE Stop: 08/10/19 08:30 Midazolam HCl (Versed 1 Mg/Ml) Confirm Administered Dose 2 mg .ROUTE .STK-MED ONE Stop: 08/16/19 11:59 Midazolam HCl (Versed 1 Mg/Ml) Confirm Administered Dose 2 mg .ROUTE .STK-MED ONE Stop: 08/16/19 12:20 Miscellaneous Information (Remove Patch) 1 ea TRDERM ONETIME ONE Stop: 08/09/19 10:01 Last Admin: 08/09/19 11:36 Dose: Not Given Naloxone HCl (Narcan) 0.4 mg IVPUSH Q2M PRN PRN Reason: Respiratory Distress Neostigmine Methylsulfate (Neostigmine) Confirm Administered Dose 5 mg .ROUTE .STK-MED ONE Stop: 08/07/19 11:24 Neostigmine Methylsulfate (Neostigmine) Confirm Administered Dose 5 mg .ROUTE .STK-MED ONE Stop: 08/12/19 09:24 Neostigmine Methylsulfate (Neostigmine) Confirm Administered Dose 5 mg .ROUTE .STK-MED ONE Stop: 08/16/19 16:33 Verify Scop Patch 0 each TOP DAILY [facility] Last Admin: 08/16/19 08:14 Dose: Not Given Norepinephrine Bitartrate (Levophed) Confirm Administered Dose 4 mg .ROUTE .STK- MED ONE Stop: 08/16/19 20:39 Last Admin: 08/16/19 22:22 Dose: Not Given Ondansetron HCl (Zofran) Confirm Administered Dose 4 mg .ROUTE .STK-MED ONE Stop: 08/07/19 08:03 Ondansetron HCl (Zofran) Confirm Administered Dose 4 mg .ROUTE .STK-MED ONE Stop: 08/12/19 09:24 Ondansetron HCl (Zofran) Confirm Administered Dose 4 mg .ROUTE .STK-MED ONE Stop: 08/16/19 16:33 Pantoprazole Sodium (Protonix Iv) 40 mg IVPUSH Q24H [facility] Last Admin: 08/07/19 17:03 Dose: 40 mg Pantoprazole Sodium (Protonix Granules) 40 mg PO DAILY [facility] Last Admin: 08/12/19 08:43 Dose: Not Given Pharmacy Consult (Consult To Pharmacy) 1 each .XX ASDIRECTED [facility] Stop: 08/12/19 16:16 Pharmacy Consult (Consult To Pharmacy) 1 each .XX ASDIRECTED [facility] Stop: 08/17/19 07:30 Piperacillin Sod/Tazobactam Sod (Zosyn) 3.375 gm .XX .STK-MED ONE Stop: 08/16/19 17:14 Piperacillin Sod/Tazobactam Sod (Zosyn) Confirm Administered Dose 3.375 gm .ROUTE .STK-MED ONE Stop: 08/16/19 18:23 Last Admin: 08/16/19 18:29 Dose: Not Given Potassium Chloride (Klor-Con M20) 40 meq PO ONETIME ONE Stop: 08/20/19 18:42 Last Admin: 08/20/19 20:15 Dose: 40 meq Potassium Chloride (Potassium Chloride Solution) 80 meq GTUBE ONETIME ONE Stop: 08/21/19 09:01 Last Admin: 08/21/19 08:25 Dose: 80 meq Propofol (Diprivan 20 Ml) Confirm Administered Dose 200 mg .ROUTE .STK-MED ONE Stop: 08/07/19 08:03 Propofol (Diprivan 20 Ml) Confirm Administered Dose 200 mg .ROUTE .[facility] ONE Stop: 08/10/19 08:30 Propofol (Diprivan 20 Ml) Confirm Administered Dose 200 mg .ROUTE .ST-MED ONE Stop: 08/12/19 09:24 Propofol (Diprivan 20 Ml) Confirm Administered Dose 200 mg .ROUTE .[facility] ONE Stop: 08/16/19 11:58 Propofol (Diprivan 20 Ml) Confirm Administered Dose 200 mg .ROUTE .ST-MED ONE Stop: 08/16/19 12:20 Propofol (Diprivan 20 Ml) Confirm Administered Dose 200 mg .ROUTE .[facility] ONE Stop: 08/16/19 16:33 Rocuronium [place] (Zemuron) Confirm Administered Dose 50 mg .ROUTE .[facility] ONE Stop: 08/07/19 08:03 Rocuronium [place] (Zemuron) Confirm Administered Dose 50 mg .ROUTE .[facility] ONE Stop: 08/07/19 10:56 Rocuronium [place] (Zemuron) Confirm Administered Dose 50 mg .ROUTE .[facility] ONE Stop: 08/12/19 09:24 Rocuronium [place] (Zemuron) Confirm Administered Dose 50 mg .ROUTE .[facility] ONE Stop: 08/12/19 11:55 Rocuronium [place] (Zemuron) Confirm Administered Dose 50 mg .ROUTE .[facility] ONE Stop: 08/16/19 16:33 Rocuronium [place] (Zemuron) Confirm Administered Dose 50 mg .ROUTE .[facility] ONE Stop: 08/16/19 17:36 Scopolamine (Transderm-Scop) 1.5 mg TRDERM Q72H PRN PRN Reason: Nausea Last Admin: 08/13/19 09:28 Dose: 1.5 mg Sertraline HCl (Zoloft) 150 mg PO DAILY [facility] Last Admin: 08/16/19 08:14 Dose: Not Given Sodium Chloride (Saline Flush) 10 ml FLUSH ASDIRECTED PRN PRN Reason: Keep Vein Open Succinylcholine Chloride (Quelicin) Confirm Administered Dose 200 mg .ROUTE .[facility] ONE Stop: 08/07/19 08:07 Succinylcholine Chloride (Quelicin) Confirm Administered Dose 200 mg .ROUTE .STK -MED ONE Stop: 08/12/19 09:24 Succinylcholine Chloride (Quelicin) Confirm Administered Dose 200 mg .ROUTE .STK -MED ONE Stop: 08/16/19 16:33 Tramadol HCl (Ultram) 50 mg PO Q6H PRN PRN Reason: PAIN - Exam Quality Assessment: DVT Prophylaxis General: Alert, Oriented, Cooperative, Moderate Distress Lungs: Clear to Auscultation, Normal Respiratory Effort. No: Rhonchi, Wheezing Cardiovascular: Regular Rate, Regular Rhythm, No Murmurs GI/Abdominal Exam: Soft, No Organomegaly, Tender. No: Distended, Guarding, Rigid, Rebound Extremities: Non-Tender, Pedal Edema Consult PN Assessment/Plan Procedures: Procedures AIRWAY INHALATION TREATMENT (01/28/19) ASSAY OF MAGNESIUM (01/28/19) ASSAY OF NATRIURETIC PEPTIDE (01/28/19) ASSAY OF PHOSPHORUS (01/28/19) BLOOD TYPING SEROLOGIC ABO (01/28/19) BLOOD TYPING SEROLOGIC RH(D) (01/28/19) COMPLETE CBC W/AUTO DIFF WBC (01/28/19) COMPREHEN METABOLIC PANEL (01/28/19) CULTURE SCREEN ONLY (01/22/19) EGD BIOPSY SINGLE/MULTIPLE (01/22/19) FLUOROSCOPY <1 HR PHYS/QHP (01/28/19) GLUCOSE BLOOD TEST (01/28/19) MEASURE BLOOD OXYGEN LEVEL (01/28/19) RBC ANTIBODY SCREEN (01/28/19) ROUTINE VENIPUNCTURE (01/28/19) X-RAY UPPER GI DELAY W/O KUB (01/28/19) Problem List Initiated/Reviewed/Updated: Yes My Orders Last 24 Hours: My Active Orders 08/20/19 09:30 RT Aerosol Therapy [RC] ASDIRECTED 08/20/19 11:00 Acetylcysteine [Mucomyst 20%] 200 mg INH TID@0700,1500,2100 08/20/19 14:15 Lactobacillus Rhamnosus GG [Culturelle] 1 cap PO BID 08/21/19 09:37 RT Aerosol Therapy [RC] ASDIRECTED 08/21/19 09:45 Calcium Carbonate/Vitamin D3 [Caltrate 600+D 1500 MG-400 Units] 1 tab PO BID 08/21/19 21:00 Budesonide [Pulmicort] 0.5 mg NEB BIDRT Plan: ASSESSMENT AND RECOMMENDATIONS ACUTE KIDNEY INJURY-improving, creatinine 2.1 today -Maintain mean arterial pressure of greater than 65 -Closely monitor urine output and renal function HYPOTENSION-resolved HYPOCALCEMIA-calcium levels improved -Calcium with vitamin D twice daily MILD TO MODERATE RESPIRATORY COMPROMISE-improved, wheezing and rhonchi have essentially resolved -Supplemental oxygen as needed -Nebulizer therapy -Discontinue IV Solu-Medrol -Mucomyst nebs -Pulmicort nebs twice daily STATUS POST EXPLORATORY LAPAROTOMY FOR GASTRIC PERFORATION -Postop care per Dr. Peraza
[2019-08-21] MEDS: Calcium Carbonate/Vitamin D3 1500 MG-400 Units Tab PO SCH ×2 (09:48→20:55)
[2019-08-21] MEDS: Lactobacillus Rhamnosus GG (Probiotic) Cap PO SCH ×2 (09:48→20:55)
[2019-08-21] MEDS: Linezolid 600 MG in Premix Bag 1 BAG IV SCH ×2 (09:51→20:56)
[2019-08-21] MEDS: Dextrose 5%-Lactated Ringers 1,000 ML IV SCH (15:13)
[2019-08-21] MEDS: Pantoprazole 40 MG Delayed-Release Granules 1 Packet PO SCH (16:28)
[2019-08-21] MEDS: Budesonide 0.5 MG/2 ML Neb Susp NEB SCH (20:56)
[2019-08-21] MEDS: Labetalol 20 MG/4 ML Syringe IVPUSH PRN (22:14)
[2019-08-22] MEDS: Acetylcysteine 20% 200 MG/ML 4 ML Nebulizer Soln SDV INH SCH ×3 (07:26→21:12)
[2019-08-22] MEDS: Albuterol/Ipratropium 3.0-0.5 MG/3 ML Neb Soln INH SCH ×4 (07:26→21:11)
[2019-08-22] MEDS: Budesonide 0.5 MG/2 ML Neb Susp NEB SCH ×2 (07:26→21:12)
[2019-08-22] MEDS ORDERED: Cyclobenzaprine 10 MG Tab PO PRN (07:43)
[2019-08-22] MEDS: Bumetanide 1 MG/4 ML MDV IVPUSH SCH ×2 (08:33→20:09)
[2019-08-22] MEDS: Losartan 50 MG Tab PO SCH (08:34)
[2019-08-22] MEDS: Lactobacillus Rhamnosus GG (Probiotic) Cap PO SCH ×2 (08:34→21:11)
[2019-08-22] MEDS: traMADol 50 MG Tab PO SCH ×3 (08:34→20:09)
[2019-08-22] MEDS: Calcium Carbonate/Vitamin D3 1500 MG-400 Units Tab PO SCH ×2 (08:35→21:11)
[2019-08-22] MEDS: Bisacodyl 5 MG Tab PO SCH ×2 (08:36→21:11)
[2019-08-22] MEDS: Magnesium Hydroxide 400 MG/5 ML Susp 30 ML Cup PO SCH ×2 (08:37→21:12)
[2019-08-22] MEDS: Linezolid 600 MG in Premix Bag 1 BAG IV SCH ×2 (08:39→21:13)
[2019-08-22] MEDS: Sertraline 50 MG Tab PO SCH (08:39)
[2019-08-22] MEDS ORDERED: Potassium Chloride 10% 20 MEQ/15 ML Soln 15 ML UD Cup GTUBE ONE (09:00)
--- NOTE | 2019-08-22 09:16 | PCM.CONSN ---
- General Info Date of Service: 08/22/19 Subjective Update: Ms. Thornton has again shown further improvement since yesterday with less cough and shortness of breath. Vital signs have remained good and she has been afebrile. White blood cell count remains elevated but this is likely secondary to recent glucocorticoid therapy. Functional Status: Reports: Tolerating Diet - Review of Systems General: Reports: Weakness. Denies: Fever, Chills Pulmonary: Reports: Shortness of Breath, Cough. Denies: Pleuritic Chest Pain, Sputum, Hemoptysis, Wheezing Cardiovascular: Reports: Dyspnea on Exertion, Edema. Denies: Chest Pain, Palpitations, Orthopnea, PND Gastrointestinal: Reports: No Symptoms - Patient Data Vitals - Most Recent: Last Vital Signs Temp 96.5 F 08/22/19 04:00 Pulse 78 08/22/19 07:27 Resp 13 08/22/19 06:00 BP 135/81 08/22/19 08:34 Pulse Ox 95 08/22/19 07:27 Weight - Most Recent: 403 lb 12.8 oz I&O - Last 24 Hours: Intake & Output 08/21/19 08/22/19 08/22/19 22:59 06:59 14:59 Intake Total 1307 748 Output Total 2825 1200 Balance -7058 -392 Lab Results Last 24 Hours: Laboratory Results - last 24 hr 08/22/19 08/22/19 08/22/19 Range/Units 04:07 04:07 04:07 WBC 26.3 H (4.5-11.0) K/uL RBC 2.98 L (3.30-5.50) M/uL Hgb 8.1 L (12.0-15.0) g/dL Hct 26.7 L (36.0-48.0) % MCV 90 (80-98) fL MCH 27 (27-31) pg MCHC 30 L (32-36) % Plt Count 629 H (150-400) K/uL Sodium 143 (140-148) mmol/L Potassium 3.4 L (3.6-5.2) mmol/L Chloride 107 (100-108) mmol/L Carbon Dioxide 29 (21-32) mmol/L Anion Gap 10.4 (5.0-14.0) mmol/L BUN 39 H (7-18) mg/dL Creatinine 1.4 H (0.6-1.0) mg/dL Est Cr Clr Drug Dosing 36.44 mL/min Estimated GFR (MDRD) 38 L (>60) Glucose 137 H (74-106) mg/dL Calcium 8.0 L (8.5-10.1) mg/dL Phosphorus 3.8 (2.5-4.9) mg/dL Total Bilirubin 1.2 H (0.2-1.0) mg/dL AST 25 (15-37) U/L ALT 44 (12-78) U/L Alkaline Phosphatase 106 (46-116) U/L Total Protein 5.2 L (6.4-8.2) g/dL Albumin 1.6 L (3.4-5.0) g/dL Globulin 3.6 H (2.3-3.5) g/dL Albumin/Globulin Ratio 0.4 L (1.2-2.2) Blood Type O POSITIVE Gel Antibody Screen Negative Crossmatch See Detail Med Orders - Current: Current Medications Hydrocodone Bitart/Acetaminophen (Acetaminophen/Hydrocodone 108-2.5 Mg/5 Ml) 15 ml PO Q3H PRN PRN Reason: Pain Acetylcysteine (Mucomyst 20%) 200 mg INH TID@0700,1500,2100 [facility] Last Admin: 08/22/19 07:26 Dose: 200 mg Albuterol/Ipratropium (Duoneb 3.0-0.5 Mg/3 Ml) 3 ml INH QIDRT [facility] Last Admin: 08/22/19 07:26 Dose: 3 ml Albuterol/Ipratropium (Duoneb 3.0-0.5 Mg/3 Ml) 3 ml NEB Q2H PRN PRN Reason: wheezing/stridor Last Admin: 08/19/19 18:10 Dose: 3 ml Benzocaine/Menthol (Cepacol Sore Throat) 1 lozenge MUCMEM ASDIRECTED PRN PRN Reason: sore throat Last Admin: 08/19/19 16:53 Dose: 1 alina Bisacodyl (Dulcolax) 10 mg PO BID [facility] Last Admin: 08/22/19 08:36 Dose: 10 mg Budesonide (Pulmicort) 0.5 mg NEB BIDRT [facility] Last Admin: 08/22/19 07:26 Dose: 0.5 mg Bumetanide (Bumex) 1 mg IVPUSH Q12H [facility] Stop: 08/22/19 20:01 Last Admin: 08/22/19 08:33 Dose: 1 mg Calcium Carbonate (Caltrate 600+D 1500 Mg-400 Units) 1 tab PO BID [facility] Last Admin: 08/22/19 08:35 Dose: 1 tab Cyclobenzaprine HCl (Flexeril) 10 mg PO Q6H PRN PRN Reason: Muscle Spasm Diphenhydramine HCl (Benadryl) 50 mg IVPUSH Q4H PRN PRN Reason: ITCHING Last Admin: 08/17/19 22:31 Dose: 50 mg Heparin Sodium (Porcine) (Heparin Sodium) 5,000 units SUBCUT Q12H [facility] Last Admin: 08/21/19 21:24 Dose: 5,000 units Hydroxyzine HCl (Vistaril) 100 mg IM Q4H PRN PRN Reason: pain Last Admin: 08/16/19 20:47 Dose: 100 mg Heparin Sodium (Porcine) 5,000 (units/ Sodium Chloride) 501 mls @ 1 mls/hr IV ASDIRECTED [facility] Last Admin: 08/20/19 11:17 Dose: 1 mls/hr Linezolid 600 mg/ Premix 300 mls @ 300 mls/hr IV Q12H [facility] Last Admin: 08/22/19 08:39 Dose: 300 mls/hr Dextrose/Lactated Ringer's (Dextrose 5%-Lactated Ringers) 1,000 mls @ 25 mls/ hr IV ASDIRECTED [facility] Last Admin: 08/21/19 15:13 Dose: 25 mls/hr Albumin Human (Albumin 25%) 25 gm in 100 mls @ 25 mls/hr IV Q24H [facility] Stop: 08/24/19 13:59 Last Admin: 08/21/19 11:30 Dose: 25 mls/hr Albumin Human (Albumin 25%) 25 gm in 100 mls @ 25 mls/hr IV Q24H [facility] Stop: 08/24/19 17:59 Last Admin: 08/21/19 14:50 Dose: 25 mls/hr Meropenem 500 mg/ Sodium (Chloride) 50 mls @ 100 mls/hr IV Q6H [facility] Labetalol HCl (Normodyne) 5 mg IVPUSH Q5M PRN PRN Reason: SBP over 160 OR DBP over 95 Last Admin: 08/21/19 22:14 Dose: 5 mg Lactobacillus Rhamnosus (Culturelle) 1 cap PO BID [facility] Last Admin: 08/22/19 08:34 Dose: 1 cap Losartan Potassium (Cozaar) 50 mg PO DAILY [facility] Last Admin: 08/22/19 08:34 Dose: 50 mg Magnesium Hydroxide (Milk Of Magnesia) 30 ml PO BID [facility] Last Admin: 08/22/19 08:37 Dose: 30 ml Metoclopramide HCl (Reglan) 10 mg IVPUSH Q6H PRN PRN Reason: NAUSEA NOT CONTROL BY ZOFRAN Last Admin: 08/16/19 08:03 Dose: 10 mg Ondansetron HCl (Zofran) 4 mg IV Q4H PRN PRN Reason: Nausea/Vomiting Last Admin: 08/15/19 20:07 Dose: 4 mg Pantoprazole Sodium (Protonix Granules) 40 mg PO Q24H [facility] Last Admin: 08/21/19 16:28 Dose: 40 mg Potassium Chloride (Potassium Chloride Solution) 40 meq GTUBE ONETIME ONE Stop: 08/22/19 09:01 Last Admin: 08/22/19 08:38 Dose: 40 meq Potassium Phosphate (Potassium Phosphates) 45 mmole .XX ONETIME ONE Stop: 08/22/19 12:01 Sertraline HCl (Zoloft) 150 mg PO DAILY [facility] Last Admin: 08/22/19 08:39 Dose: 150 mg Sodium Chloride (Saline Flush) 10 ml IV ASDIRECTED PRN PRN Reason: optical effects line up person Tramadol HCl (Ultram) 50 mg PO Q6H [facility] Last Admin: 08/22/19 08:34 Dose: 50 mg Discontinued Medications Acetaminophen (Tylenol) 650 mg PO Q6H [facility] Last Admin: 08/12/19 17:42 Dose: 650 mg Acetaminophen (Tylenol) 650 mg PO Q6H [facility] Last Admin: 08/17/19 13:39 Dose: Not Given Albuterol/Ipratropium (Duoneb 3.0-0.5 Mg/3 Ml) 3 ml INH ONETIME ONE Stop: 08/07/19 10:01 Last Admin: 08/07/19 09:28 Dose: 3 ml Albuterol/Ipratropium (Duoneb 3.0-0.5 Mg/3 Ml) 3 ml INH QIDRT [facility] Last Admin: 08/14/19 07:33 Dose: Not Given Albuterol/Ipratropium (Duoneb 3.0-0.5 Mg/3 Ml) 3 ml INH ASDIRECTED PRN PRN Reason: BREATHING Albuterol/Ipratropium (Duoneb 3.0-0.5 Mg/3 Ml) 3 ml INH Q6H PRN PRN Reason: Shortness of Breath Albuterol/Ipratropium (Duoneb 3.0-0.5 Mg/3 Ml) 3 ml INH ASDIRECTED PRN PRN Reason: BREATHING Last Admin: 08/18/19 17:50 Dose: 3 ml Bumetanide (Bumex) 1 mg IVPUSH ONETIME ONE Stop: 08/18/19 08:50 Last Admin: 08/18/19 09:19 Dose: 1 mg Bumetanide (Bumex) 1 mg IVPUSH ONETIME ONE Stop: 08/18/19 23:26 Last Admin: 08/18/19 23:46 Dose: 1 mg Bupivacaine HCl/Epinephrine Bitart (Marcaine 0.5%/Epinephrine 1:200,000) Confirm Administered Dose 50 ml .ROUTE .STK-MED ONE Stop: 08/07/19 07:03 Celecoxib (Celebrex) 200 mg PO DAILY@0800 [facility] Last Admin: 08/16/19 08:13 Dose: Not Given Ropivacaine 60 ml/Dexamethasone 8 mg/Epinephrine HCl 0.4 mg/ Sodium Chloride 17.6 ml 0 ml NERVRT ASDIRECTED [facility] Last Admin: 08/07/19 10:28 Dose: 80 syringe Ropivacaine 60 ml/Dexamethasone 8 mg/Epinephrine HCl 0.4 mg/ Sodium Chloride 17.6 ml 0 ml NERVRT ASDIRECTED [facility] Last Admin: 08/12/19 12:00 Dose: 80 syringe Ropivacaine 60 ml/Dexamethasone 8 mg/Epinephrine HCl 0.4 mg/ Sodium Chloride 17.6 ml 0 ml NERVRT ASDIRECTED [facility] Last Admin: 08/16/19 17:15 Dose: 80 syringe Cyanocobalamin (Vitamin B12) 1,000 mcg IM ONETIME ONE Stop: 08/09/19 09:01 Last Admin: 08/09/19 08:06 Dose: 1,000 mcg Cyanocobalamin (Vitamin B12) 1,000 mcg IM ONETIME ONE Stop: 08/14/19 09:01 Last Admin: 08/14/19 08:01 Dose: 1,000 mcg Cyclobenzaprine HCl (Flexeril) 10 mg PO Q8H PRN PRN Reason: MUSCLE SPASM Dexamethasone (Dexamethasone) Confirm Administered Dose 4 mg .ROUTE .STK-MED ONE Stop: 08/07/19 08:03 Dexamethasone (Dexamethasone) Confirm Administered Dose 4 mg .ROUTE .STK-MED ONE Stop: 08/12/19 09:24 Dexamethasone (Dexamethasone) Confirm Administered Dose 4 mg .ROUTE .STK-MED ONE Stop: 08/16/19 16:33 Dextrose/Water (Dextrose 50% In Water) 50 ml IVPUSH ONETIME PRN PRN Reason: ACCUCHECK LESS THAN 70 Diphenhydramine HCl (Benadryl) 25 - 50 mg PO Q4H PRN PRN Reason: Itching Last Admin: 08/11/19 12:32 Dose: 50 mg Fentanyl (Sublimaze) Confirm Administered Dose 250 mcg .ROUTE .STK-MED ONE Stop: 08/07/19 08:03 Fentanyl (Sublimaze) Confirm Administered Dose 100 mcg .ROUTE .STK-MED ONE Stop: 08/07/19 10:58 Fentanyl (Sublimaze) Confirm Administered Dose 100 mcg .ROUTE .STK-MED ONE Stop: 08/07/19 12:59 Fentanyl (Sublimaze) Confirm Administered Dose 100 mcg .ROUTE .STK-MED ONE Stop: 08/10/19 08:30 Fentanyl (Sublimaze) Confirm Administered Dose 250 mcg .ROUTE .STK-MED ONE Stop: 08/12/19 09:24 Fentanyl (Sublimaze) Confirm Administered Dose 250 mcg .ROUTE .STK-MED ONE Stop: 08/12/19 11:34 Fentanyl (Sublimaze) Confirm Administered Dose 100 mcg .ROUTE .STK-MED ONE Stop: 08/16/19 11:59 Fentanyl (Sublimaze) Confirm Administered Dose 100 mcg .ROUTE .STK-MED ONE Stop: 08/16/19 12:20 Fentanyl (Sublimaze) 100 mcg IVPUSH ONETIME ONE Stop: 08/16/19 15:56 Last Admin: 08/16/19 16:01 Dose: 100 mcg Fentanyl (Sublimaze) Confirm Administered Dose 250 mcg .ROUTE .STK-MED ONE Stop: 08/16/19 16:32 Furosemide (Lasix) 20 mg IV ONETIME ONE Stop: 08/15/19 09:31 Last Admin: 08/15/19 09:01 Dose: 20 mg Furosemide (Lasix) 20 mg IVPUSH ONETIME ONE Stop: 08/16/19 08:01 Last Admin: 08/16/19 08:55 Dose: 20 mg Furosemide (Lasix) 10 mg IVPUSH ONETIME STA Stop: 08/17/19 21:06 Last Admin: 08/17/19 21:19 Dose: 10 mg Furosemide (Lasix) Confirm Administered Dose 20 mg .ROUTE .STK-MED ONE Stop: 08/17/19 21:16 Last Admin: 08/17/19 22:02 Dose: Not Given Furosemide (Lasix) 10 mg IVPUSH ONETIME STA Stop: 08/18/19 01:14 Last Admin: 08/18/19 01:22 Dose: 10 mg Furosemide (Lasix) 20 mg IVPUSH Q8H [facility] Stop: 08/21/19 17:01 Last Admin: 08/21/19 16:28 Dose: 20 mg Gabapentin (Neurontin) 300 mg PO TID [facility] Last Admin: 08/12/19 15:13 Dose: Not Given Gabapentin (Neurontin) 300 mg PO TID [facility] Last Admin: 08/17/19 13:39 Dose: Not Given Glucagon (Glucagen) 1 mg IM ONETIME PRN PRN Reason: ACCUCHECK LESS THAN 70 Glycopyrrolate (Robinul) Confirm Administered Dose 1 mg .ROUTE .STK-MED ONE Stop: 08/07/19 10:20 Glycopyrrolate (Glycopyrrolate) 0.4 mg IVPUSH ONCALL ONE Stop: 08/10/19 08:31 Last Admin: 08/10/19 11:03 Dose: Not Given Glycopyrrolate (Robinul) Confirm Administered Dose 1 mg .ROUTE .STK-MED ONE Stop: 08/12/19 09:24 Glycopyrrolate (Glycopyrrolate) 0.4 mg IVPUSH ONCALL ONE Stop: 08/16/19 12:01 Last Admin: 08/16/19 14:59 Dose: 0.4 mg Glycopyrrolate (Robinul) Confirm Administered Dose 1 mg .ROUTE .STK-MED ONE Stop: 08/16/19 16:33 Heparin Sodium (Porcine) (Heparin Sodium) 5,000 units SUBCUT Q12H [facility] Last Admin: 08/11/19 05:45 Dose: 5,000 units Heparin Sodium (Porcine) (Heparin Sodium) 5,000 units SUBCUT Q12H [facility] Last Admin: 08/17/19 13:39 Dose: Not Given Heparin Sodium (Porcine) (Heparin Lock Flush 100 Units/Ml) Confirm Administered Dose 500 units .ROUTE .STK-MED ONE Stop: 08/16/19 16:45 Last Admin: 08/17/19 06:30 Dose: 500 units Heparin Sodium (Porcine) (Heparin Lock Flush 100 Units/Ml) Confirm Administered Dose 500 units .ROUTE .[facility]-MED ONE Stop: 08/16/19 20:12 Hydromorphone HCl (Dilaudid Production Specialist 15 Mg In Ns 30 Ml) 0 mg IV ASDIRECTED PRN; Protocol PRN Reason: Pain Last Admin: 08/06/19 23:30 Dose: 15 mg Hydromorphone HCl (Dilaudid) 0.5 mg IVPUSH Q2H PRN PRN Reason: MODERATE PAIN Last Admin: 08/16/19 13:36 Dose: 0.5 mg Hydromorphone HCl (Dilaudid) 1 mg IV Q2H PRN PRN Reason: SEVERE PAIN Last Admin: 08/16/19 11:06 Dose: 1 mg Hydromorphone HCl (Dilaudid Production Specialist 15 Mg In Ns 30 Ml) 0 mg IV ASDIRECTED PRN; Protocol 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 Last Admin: 08/21/19 01:07 Dose: 15 mg Hydroxyzine HCl (Vistaril) 100 mg IM ONETIME ONE Stop: 08/07/19 14:03 Last Admin: 08/07/19 14:14 Dose: 100 mg Dextrose/Lactated Ringer's (Dextrose 5%-Lactated Ringers) 1,000 mls @ 125 mls/ hr IV ASDIRECTED [facility] Last Admin: 08/07/19 06:11 Dose: 125 mls/hr Linezolid (Zyvox) Confirm Administered Dose 300 mls @ as directed .ROUTE .[facility]- MED ONE Stop: 08/07/19 07:03 Lidocaine HCl/Dextrose (Lidocaine 2 Gm/D5w 500 Ml) 2 gm in 500 mls @ 15 mls/hr IV .Q24H [facility] Last Admin: 08/07/19 20:31 Dose: Not Given Ketamine HCl 50 mg/ Sodium (Chloride) 50 mls @ 16.2 mls/hr IV ASDIRECTED [facility] Meropenem 500 mg/ Sodium (Chloride) 50 mls @ 100 mls/hr IV ONETIME ONE Stop: 08/07/19 10:29 Last Admin: 08/07/19 09:28 Dose: 100 mls/hr Lidocaine HCl/Dextrose (Lidocaine 2 Gm/D5w 500 Ml) 2 gm in 500 mls @ 15 mls/hr IV .Q24H [facility] Stop: 08/08/19 11:01 Last Admin: 08/08/19 11:26 Dose: Not Given Dextrose/Lactated Ringer's (Dextrose 5%-Lactated Ringers) 1,000 mls @ 200 mls/ hr IV ASDIRECTED [facility] Stop: 08/08/19 17:59 Last Admin: 08/08/19 04:10 Dose: 200 mls/hr Multivitamins/Minerals 10 ml/Thiamine HCl 200 mg/ Chromium/Copper/Manganese/ Seleni/Zn 1 ml/ Dextrose/Lactated Ringer's 1,013 mls @ 174.999 mls/hr IV DAILY@ 1600 [facility] Last Admin: 08/07/19 17:02 Dose: 174.999 mls/hr Meropenem 500 mg/ Sodium (Chloride) 50 mls @ 100 mls/hr IV Q6H [facility] Stop: 08/08/19 22:29 Last Admin: 08/08/19 15:33 Dose: Not Given Dextrose/Lactated Ringer's (Dextrose 5%-Lr) 500 mls @ 500 mls/hr IV ONETIME ONE Stop: 08/08/19 01:29 Last Admin: 08/08/19 00:44 Dose: Not Given Lactated Ringer's (Ringers, Lactated) 500 mls @ 500 mls/hr IV ONETIME ONE Stop: 08/08/19 01:44 Last Admin: 08/08/19 00:48 Dose: 500 mls/hr Magnesium Sulfate 2 gm/ Premix 50 mls @ 25 mls/hr IV Q6H [facility] Stop: 08/10/19 05:59 Last Admin: 08/08/19 10:18 Dose: 25 mls/hr Dextrose/Lactated Ringer's (Dextrose 5%-Lactated Ringers) 1,000 mls @ 100 mls/ hr IV ASDIRECTED [facility] Potassium Phosphate 22.5 mmole (/ Sodium Chloride) 257.5 mls @ 86 mls/hr IV Q3H [facility] Stop: 08/09/19 15:59 Last Admin: 08/09/19 13:11 Dose: 86 mls/hr Dextrose/Lactated Ringer's (Dextrose 5%-Lactated Ringers) 1,000 mls @ 100 mls/ hr IV ASDIRECTED [facility] Last Admin: 08/11/19 21:16 Dose: 100 mls/hr Lidocaine HCl/Dextrose (Lidocaine 2 Gm/D5w 500 Ml) 2 gm in 500 mls @ 15 mls/hr IV .Q24H [facility] Stop: 08/13/19 14:00 Last Admin: 08/13/19 09:21 Dose: Not Given Ketamine HCl 50 mg/ Sodium (Chloride) 50 mls @ 16.41 mls/hr IV ASDIRECTED [facility] Meropenem 500 mg/ Sodium (Chloride) 50 mls @ 100 mls/hr IV ONCALL ONE Stop: 08/12/19 10:29 Last Admin: 08/12/19 10:31 Dose: 100 mls/hr Lactated Ringer's (Ringers, Lactated) Confirm Administered Dose 1,000 mls @ as directed .ROUTE .STK-MED ONE Stop: 08/12/19 09:29 Dextrose/Lactated Ringer's (Dextrose 5%-Lactated Ringers) 1,000 mls @ 175 mls/ hr IV ASDIRECTED [facility] Last Admin: 08/13/19 06:27 Dose: 175 mls/hr Multivitamins/Minerals 10 ml/Thiamine HCl 200 mg/ Chromium/Copper/Manganese/ Seleni/Zn 1 ml/ Dextrose/Lactated Ringer's 1,013 mls @ 175 mls/hr IV DAILY@ 1600 [facility] Last Admin: 08/13/19 17:37 Dose: 175 mls/hr Meropenem 500 mg/ Sodium (Chloride) 50 mls @ 100 mls/hr IV Q6H [facility] Stop: 08/13/19 22:59 Last Admin: 08/13/19 22:09 Dose: 100 mls/hr Magnesium Sulfate 2 gm/ Premix 50 mls @ 25 mls/hr IV Q6H [facility] Stop: 08/15/19 15:59 Last Admin: 08/15/19 13:30 Dose: 25 mls/hr Dextrose/Lactated Ringer's (Dextrose 5%-Lactated Ringers) 1,000 mls @ 125 mls/ hr IV ASDIRECTED [facility] Last Admin: 08/15/19 08:04 Dose: 125 mls/hr Multivitamins/Minerals 10 ml/Thiamine HCl 200 mg/ Chromium/Copper/Manganese/ Seleni/Zn 1 ml/ Dextrose/Lactated Ringer's 1,013 mls @ 125 mls/hr IV DAILY@ 1100 [facility] Last Admin: 08/14/19 10:50 Dose: 125 mls/hr Dextrose/Lactated Ringer's (Dextrose 5%-Lactated Ringers) 1,000 mls @ [facility] Admin: 08/16/19 06:39 Dose: 80 mls/hr Multivitamins/Minerals 10 ml/Thiamine HCl 200 mg/ Chromium/Copper/Manganese/ Seleni/Zn 1 ml/ Dextrose/Lactated Ringer's 1,013 mls @ 80 mls/hr IV DAILY@1600 [facility] Last Admin: 08/17/19 13:38 Dose: Not Given Meropenem 500 mg/ Sodium (Chloride) 50 mls @ 100 mls/hr IV ONCALL ONE Stop: 08/16/19 15:59 Last Admin: 08/16/19 15:37 Dose: 100 mls/hr Aztreonam 1 gm/ Sodium (Chloride) 50 mls @ 100 mls/hr IV ONETIME ONE Stop: 08/16/19 16:14 Last Admin: 08/16/19 15:51 Dose: 100 mls/hr Ketamine HCl 50 mg/ Sodium (Chloride) 50 mls @ 16.41 mls/hr IV ASDIRECTED [facility] Lidocaine HCl/Dextrose (Lidocaine 2 Gm/D5w 500 Ml) 2 gm in 500 mls @ 15 mls/hr IV .Q24H [facility] Stop: 08/17/19 16:31 Last Admin: 08/17/19 16:42 Dose: Not Given Lactated Ringer's (Ringers, Lactated) Confirm Administered Dose 1,000 mls @ as directed .ROUTE .STK-MED ONE Stop: 08/16/19 17:08 Sodium Chloride (Normal Saline) Confirm Administered Dose 100 mls @ as directed .ROUTE .[facility] ONE Stop: 08/16/19 18:24 Last Admin: 08/16/19 22:22 Dose: Not Given Lactated Ringer's (Ringers, Lactated) Confirm Administered Dose 1,000 mls @ as directed .ROUTE .[facility] ONE Stop: 08/16/19 18:36 Dextrose/Water (Dextrose 5% In Water) Confirm Administered Dose 250 mls @ as directed .ROUTE .[facility] ONE Stop: 08/16/19 20:42 Last Admin: 08/16/19 22:22 Dose: Not Given Dextrose/Lactated Ringer's (Dextrose 5%-Lactated Ringers) 1,000 mls @ 200 mls/ hr IV ASDIRECTED [facility] Last Admin: 08/18/19 22:27 Dose: 200 mls/hr Multivitamins/Minerals 10 ml/Thiamine HCl 200 mg/ Chromium/Copper/Manganese/ Seleni/Zn 1 ml/ Dextrose/Lactated Ringer's 1,013 mls @ 200 mls/hr IV DAILY@ 1600 [facility] Meropenem 500 mg/ Sodium (Chloride) 50 mls @ 100 mls/hr IV Q6H [facility] Last Admin: 08/17/19 09:50 Dose: 100 mls/hr Aztreonam 1 gm/ Sodium (Chloride) 50 mls @ 100 mls/hr IV Q8H [facility] Last Admin: 08/17/19 06:13 Dose: 100 mls/hr Norepinephrine Bitartrate 4 mg (/ Dextrose/Water) 250 mls @ 7.5 mls/hr IV TITRATE [facility]; Protocol Last Titration: 08/19/19 10:02 Dose: 0 mcg/min, 0 mls/hr Lactated Ringer's (Ringers, Lactated) 500 mls @ 1,000 mls/hr IV .BOLUS [facility] Last Admin: 08/17/19 08:40 Dose: 1,000 mls/hr Lactated Ringer's (Ringers, Lactated) 500 mls @ 999 mls/hr IV .BOLUS [facility] Last Admin: 08/17/19 05:51 Dose: 999 mls/hr Aztreonam 1 gm/ Sodium (Chloride) 50 mls @ 100 mls/hr IV Q8HR [facility] Last Admin: 08/19/19 05:07 Dose: 100 mls/hr Lactated Ringer's (Ringers, Lactated) 500 mls @ 0 mls/hr IV ASDIRECTED [facility] Stop: 08/17/19 08:31 Multivitamins/Minerals 10 ml/Thiamine HCl 200 mg/ Chromium/Copper/Manganese/ Seleni/Zn 1 ml/ Dextrose/Lactated Ringer's 1,013 mls @ 200 mls/hr IV DAILY@ 1000 [facility] Last Admin: 08/18/19 12:21 Dose: 200 mls/hr Lactated Ringer's (Ringers, Lactated) 500 mls @ 999 mls/hr IV ASDIRECTED [facility] Stop: 08/17/19 11:16 Last Admin: 08/17/19 10:21 Dose: 999 mls/hr Meropenem 500 mg/ Sodium (Chloride) 50 mls @ 100 mls/hr IV Q12H [facility] Last Admin: 08/21/19 21:57 Dose: 100 mls/hr Lactated Ringer's (Ringers, Lactated) 500 mls @ 999 mls/hr IV ASDIRECTED [facility] Stop: 08/17/19 12:46 Last Admin: 08/17/19 12:16 Dose: 999 mls/hr Lactated Ringer's (Ringers, Lactated) 500 mls @ 999 mls/hr IV ASDIRECTED [facility] Stop: 08/17/19 15:01 Last Admin: 08/17/19 14:28 Dose: 999 mls/hr Lactated Ringer's (Ringers, Lactated) 500 mls @ 999 mls/hr IV ASDIRECTED [facility] Stop: 08/17/19 18:31 Last Admin: 08/17/19 17:59 Dose: 999 mls/hr Lactated Ringer's (Ringers, Lactated) 500 mls @ 500 mls/hr IV BOLUS ONE Stop: 08/17/19 20:29 Last Admin: 08/17/19 19:35 Dose: 500 mls/hr Lactated Ringer's (Ringers, Lactated) 500 mls @ 500 mls/hr IV .BOLUS [facility] Last Admin: 08/18/19 03:13 Dose: 500 mls/hr Lactated Ringer's (Ringers, Lactated) 500 mls @ 500 mls/hr IV STAT WERNER Last Admin: 08/18/19 05:18 Dose: 500 mls/hr Magnesium Sulfate 2 gm/ Premix 50 mls @ 25 mls/hr IV Q6H [facility] Stop: 08/20/19 05:59 Last Admin: 08/20/19 03:10 Dose: 25 mls/hr Calcium Gluconate 2 gm/ Sodium (Chloride) 120 mls @ 100 mls/hr IV Q6H [facility] Stop: 08/18/19 17:11 Last Admin: 08/18/19 15:38 Dose: 100 mls/hr Calcium Gluconate 2 gm/ Sodium (Chloride) 120 mls @ 60 mls/hr IV Q6H [facility] Stop: 08/19/19 01:44 Last Admin: 08/18/19 23:13 Dose: 60 mls/hr Calcium Gluconate 2 gm/ Sodium (Chloride) 120 mls @ 100 mls/hr IV Q6H [facility] Stop: 08/19/19 16:11 Last Admin: 08/19/19 15:50 Dose: 100 mls/hr Calcium Gluconate 2 gm/ Sodium (Chloride) 120 mls @ 100 mls/hr IV ONETIME ONE Stop: 08/19/19 19:34 Last Admin: 08/19/19 18:42 Dose: 100 mls/hr Calcium Gluconate 2 gm/ Sodium (Chloride) 120 mls @ 100 mls/hr IV ONETIME ONE Stop: 08/20/19 19:52 Last Admin: 08/20/19 20:13 Dose: 100 mls/hr Insulin Human Lispro (Humalog) 5 unit SUBCUT ONETIME ONE Stop: 08/07/19 14:01 Last Admin: 08/07/19 15:07 Dose: 5 units Insulin Human Lispro (Humalog) 0 unit SUBCUT Q6H PRN; Protocol PRN Reason: CORRECTIONAL DOSING Last Admin: 08/13/19 04:12 Dose: 9 unit Iopamidol (Isovue-300 (61%)) 50 ml PO ASDIRECTED ONE Stop: 08/08/19 04:27 Last Admin: 08/08/19 04:43 Dose: 50 ml Iopamidol (Isovue-300 (61%)) 20 ml PO ASDIRECTED ONE Stop: 08/13/19 04:21 Last Admin: 08/13/19 04:34 Dose: 20 ml Ketamine HCl (Ketalar) 27 mg IV ASDIRECTED WERNER Ketamine HCl (Ketalar) 27 mg IV ASDIRECTED [facility] Ketamine HCl (Ketalar) 27 mg IV ASDIRECTED [facility] Ketorolac Tromethamine (Toradol) Confirm Administered Dose 60 mg .ROUTE .STK- MED ONE Stop: 08/07/19 08:03 Lidocaine HCl (Xylocaine 2%) 100 mg IVPUSH ASDIRECTED [facility] Lidocaine HCl (Xylocaine 2%) 100 mg IVPUSH ASDIRECTED [facility] Lidocaine HCl (Xylocaine 2%) 100 mg IVPUSH ASDIRECTED [facility] Linezolid (Zyvox) 600 mg IRR .STK-MED ONE Stop: 08/07/19 12:08 Last Admin: 08/07/19 12:07 Dose: 600 mg Lorazepam (Ativan) 0.5 - 1 mg IV Q4H PRN PRN Reason: ANXIETY Last Admin: 08/15/19 09:01 Dose: 1 mg Losartan Potassium (Cozaar) 50 mg PO DAILY [facility] Last Admin: 08/16/19 08:13 Dose: Not Given Meperidine HCl (Demerol) 100 mg IM ONETIME ONE Stop: 08/07/19 14:02 Last Admin: 08/07/19 14:08 Dose: 100 mg Meropenem (Merrem) Confirm Administered Dose 500 mg .ROUTE .STK-MED ONE Stop: 08/07/19 07:03 Last Admin: 08/07/19 12:06 Dose: 500 mg Meropenem (Merrem) Confirm Administered Dose 500 mg .ROUTE .STK-MED ONE Stop: 08/12/19 06:59 Last Admin: 08/12/19 11:25 Dose: 500 mg Meropenem (Merrem) Confirm Administered Dose 500 mg .ROUTE .STK-MED ONE Stop: 08/16/19 17:03 Last Admin: 08/16/19 17:37 Dose: 500 mg Meropenem (Merrem) Confirm Administered Dose 1,500 mg .ROUTE .STK-MED ONE Stop: 08/16/19 18:09 Last Admin: 08/16/19 18:17 Dose: 1,500 mg Meropenem (Merrem) Confirm Administered Dose 500 mg .ROUTE .STK-MED ONE Stop: 08/16/19 18:25 Methylprednisolone Sodium Succinate (Solu-Medrol) 40 mg IVPUSH Q6H [facility] Last Admin: 08/20/19 03:09 Dose: 40 mg Methylprednisolone Sodium Succinate (Solu-Medrol) 40 mg IVPUSH Q12H [facility] Last Admin: 08/21/19 03:18 Dose: 40 mg Midazolam HCl (Versed 1 Mg/Ml) Confirm Administered Dose 2 mg .ROUTE .STK-MED ONE Stop: 08/07/19 09:50 Midazolam HCl (Versed 1 Mg/Ml) Confirm Administered Dose 2 mg .ROUTE .STK-MED ONE Stop: 08/10/19 08:30 Midazolam HCl (Versed 1 Mg/Ml) Confirm Administered Dose 2 mg .ROUTE .STK-MED ONE Stop: 08/16/19 11:59 Midazolam HCl (Versed 1 Mg/Ml) Confirm Administered Dose 2 mg .ROUTE .STK-MED ONE Stop: 08/16/19 12:20 Miscellaneous Information (Remove Patch) 1 ea TRDERM ONETIME ONE Stop: 08/09/19 10:01 Last Admin: 08/09/19 11:36 Dose: Not Given Naloxone HCl (Narcan) 0.4 mg IVPUSH Q2M PRN PRN Reason: Respiratory Distress Naloxone HCl (Narcan) 0.1 mg IV ASDIRECTED PRN PRN Reason: decreased respiratory rate Neostigmine Methylsulfate (Neostigmine) Confirm Administered Dose 5 mg .ROUTE .STK-MED ONE Stop: 08/07/19 11:24 Neostigmine Methylsulfate (Neostigmine) Confirm Administered Dose 5 mg .ROUTE .STK-MED ONE Stop: 08/12/19 09:24 Neostigmine Methylsulfate (Neostigmine) Confirm Administered Dose 5 mg .ROUTE .STK-MED ONE Stop: 08/16/19 16:33 Verify Scop Patch 0 each TOP DAILY [facility] Last Admin: 08/16/19 08:14 Dose: Not Given Norepinephrine Bitartrate (Levophed) Confirm Administered Dose 4 mg .ROUTE .STK- MED ONE Stop: 08/16/19 20:39 Last Admin: 08/16/19 22:22 Dose: Not Given Ondansetron HCl (Zofran) Confirm Administered Dose 4 mg .ROUTE .STK-MED ONE Stop: 08/07/19 08:03 Ondansetron HCl (Zofran) Confirm Administered Dose 4 mg .ROUTE .STK-MED ONE Stop: 08/12/19 09:24 Ondansetron HCl (Zofran) Confirm Administered Dose 4 mg .ROUTE .STK-MED ONE Stop: 08/16/19 16:33 Pantoprazole Sodium (Protonix Iv) 40 mg IVPUSH Q24H [facility] Last Admin: 08/07/19 17:03 Dose: 40 mg Pantoprazole Sodium (Protonix Granules) 40 mg PO DAILY [facility] Last Admin: 08/12/19 08:43 Dose: Not Given Pantoprazole Sodium (Protonix Iv) 40 mg IVPUSH Q24H [facility] Last Admin: 08/20/19 15:15 Dose: 40 mg Pharmacy Consult (Consult To Pharmacy) 1 each .XX ASDIRECTED [facility] Stop: 08/12/19 16:16 Pharmacy Consult (Consult To Pharmacy) 1 each .XX ASDIRECTED [facility] Stop: 08/17/19 07:30 Piperacillin Sod/Tazobactam Sod (Zosyn) 3.375 gm .XX .STK-MED ONE Stop: 08/16/19 17:14 Piperacillin Sod/Tazobactam Sod (Zosyn) Confirm Administered Dose 3.375 gm .ROUTE .STK-MED ONE Stop: 08/16/19 18:23 Last Admin: 08/16/19 18:29 Dose: Not Given Potassium Chloride (Klor-Con M20) 40 meq PO ONETIME ONE Stop: 08/20/19 18:42 Last Admin: 08/20/19 20:15 Dose: 40 meq Potassium Chloride (Potassium Chloride Solution) 80 meq GTUBE ONETIME ONE Stop: 08/21/19 09:01 Last Admin: 08/21/19 08:25 Dose: 80 meq Propofol (Diprivan 20 Ml) Confirm Administered Dose 200 mg .ROUTE .STK-MED ONE Stop: 08/07/19 08:03 Propofol (Diprivan 20 Ml) Confirm Administered Dose 200 mg .ROUTE .STK-MED ONE Stop: 08/10/19 08:30 Propofol (Diprivan 20 Ml) Confirm Administered Dose 200 mg .ROUTE .STK-MED ONE Stop: 08/12/19 09:24 Propofol (Diprivan 20 Ml) Confirm Administered Dose 200 mg .ROUTE .STK-MED ONE Stop: 08/16/19 11:58 Propofol (Diprivan 20 Ml) Confirm Administered Dose 200 mg .ROUTE .STK-MED ONE Stop: 08/16/19 12:20 Propofol (Diprivan 20 Ml) Confirm Administered Dose 200 mg .ROUTE .[facility]-MED ONE Stop: 08/16/19 16:33 Rocuronium [place] (Zemuron) Confirm Administered Dose 50 mg .ROUTE .[facility]-MED ONE Stop: 08/07/19 08:03 Rocuronium [place] (Zemuron) Confirm Administered Dose 50 mg .ROUTE .[facility]-MED ONE Stop: 08/07/19 10:56 Rocuronium [place] (Zemuron) Confirm Administered Dose 50 mg .ROUTE .[facility]-MED ONE Stop: 08/12/19 09:24 Rocuronium [place] (Zemuron) Confirm Administered Dose 50 mg .ROUTE .[facility]-MED ONE Stop: 08/12/19 11:55 Rocuronium [place] (Zemuron) Confirm Administered Dose 50 mg .ROUTE .[facility]-MED ONE Stop: 08/16/19 16:33 Rocuronium [place] (Zemuron) [facility] Stop: 08/16/19 17:36 Scopolamine (Transderm-Scop) 1.5 mg TRDERM Q72H PRN PRN Reason: Nausea Last Admin: 08/13/19 09:28 Dose: 1.5 mg Sertraline HCl (Zoloft) 150 mg PO DAILY [facility] Last Admin: 08/16/19 08:14 Dose: Not Given Sodium Chloride (Saline Flush) 10 ml FLUSH ASDIRECTED PRN PRN Reason: Keep Vein Open Succinylcholine Chloride (Quelicin) Confirm Administered Dose 200 mg .ROUTE .[facility] -MED ONE Stop: 08/07/19 08:07 Succinylcholine Chloride (Quelicin) Confirm Administered Dose 200 mg .ROUTE .[facility] -MED ONE Stop: 08/12/19 09:24 Succinylcholine Chloride (Quelicin) Confirm Administered Dose 200 mg .ROUTE .[facility] -MED ONE Stop: 08/16/19 16:33 Tramadol HCl (Ultram) 50 mg PO Q6H PRN PRN Reason: PAIN - Exam Quality Assessment: DVT Prophylaxis General: Alert, Oriented, Cooperative, Mild Distress Lungs: Clear to Auscultation, Normal Respiratory Effort. No: Rhonchi, Wheezing Cardiovascular: Regular Rate, Regular Rhythm, No Murmurs GI/Abdominal Exam: Soft, No Organomegaly, Tender. No: Distended, Guarding, Rigid, Rebound Extremities: Non-Tender, No Pedal Edema Consult PN Assessment/Plan Procedures: Procedures AIRWAY INHALATION TREATMENT (01/28/19) ASSAY OF MAGNESIUM (01/28/19) ASSAY OF NATRIURETIC PEPTIDE (01/28/19) ASSAY OF PHOSPHORUS (01/28/19) BLOOD TYPING SEROLOGIC ABO (01/28/19) BLOOD TYPING SEROLOGIC RH(D) (01/28/19) COMPLETE CBC W/AUTO DIFF WBC (01/28/19) COMPREHEN METABOLIC PANEL (01/28/19) CULTURE SCREEN ONLY (01/22/19) EGD BIOPSY SINGLE/MULTIPLE (01/22/19) FLUOROSCOPY <1 HR PHYS/QHP (01/28/19) GLUCOSE BLOOD TEST (01/28/19) MEASURE BLOOD OXYGEN LEVEL (01/28/19) RBC ANTIBODY SCREEN (01/28/19) ROUTINE VENIPUNCTURE (01/28/19) X-RAY UPPER GI DELAY W/O KUB (01/28/19) Problem List Initiated/Reviewed/Updated: Yes My Orders Last 24 Hours: My Active Orders 08/21/19 09:37 RT Aerosol Therapy [RC] ASDIRECTED 08/21/19 09:45 Calcium Carbonate/Vitamin D3 [Caltrate 600+D 1500 MG-400 Units] 1 tab PO BID 08/21/19 21:00 Budesonide [Pulmicort] 0.5 mg NEB BIDRT Plan: ASSESSMENT AND RECOMMENDATIONS ACUTE KIDNEY INJURY-improving, creatinine 1.4 today -Maintain mean arterial pressure of greater than 65 -Closely monitor urine output and renal function HYPOTENSION-resolved HYPOCALCEMIA-calcium levels improved -Calcium with vitamin D twice daily MILD TO MODERATE RESPIRATORY COMPROMISE-improved, wheezing and rhonchi have essentially resolved -Supplemental oxygen as needed -Nebulizer therapy -Mucomyst nebs -Pulmicort nebs twice daily STATUS POST EXPLORATORY LAPAROTOMY FOR GASTRIC PERFORATION -Postop care per Dr. Peraza Hospitalist service will sign off on the patient at this time, if we can be of further assistance in medical management during this hospital stay please feel free to reconsult.
[2019-08-22] MEDS: Meropenem 500 MG in Sodium Chloride 0.9% 50 ML IV SCH ×3 (10:01→21:13)
[2019-08-22] MEDS: Acetaminophen/HYDROcodone 108-2.5 MG/5 ML Soln 15 ML UD Cup PO PRN ×2 (10:13→18:53)
[2019-08-22] MEDS: Heparin Sodium 5,000 Units/ML Vial SUBCUT SCH ×2 (10:27→21:13)
[2019-08-22] MEDS ORDERED: Potassium Phosphates 3 mMole/ML 15 ML SDV ONE (12:00)
[2019-08-22] MEDS: Pantoprazole 40 MG Delayed-Release Granules 1 Packet PO SCH (17:20)
[2019-08-23] MEDS: traMADol 50 MG Tab PO SCH ×4 (01:58→20:30)
[2019-08-23] MEDS: Meropenem 500 MG in Sodium Chloride 0.9% 50 ML IV SCH ×4 (03:41→22:19)
[2019-08-23] MEDS: Budesonide 0.5 MG/2 ML Neb Susp NEB SCH ×2 (07:29→21:49)
[2019-08-23] MEDS: Acetylcysteine 20% 200 MG/ML 4 ML Nebulizer Soln SDV INH SCH ×3 (07:29→21:23)
[2019-08-23] MEDS: Albuterol/Ipratropium 3.0-0.5 MG/3 ML Neb Soln INH SCH ×4 (07:29→21:23)
[2019-08-23] MEDS ORDERED: Bumetanide 1 MG/4 ML MDV IV ONE (08:00)
[2019-08-23] MEDS: Linezolid 600 MG in Premix Bag 1 BAG IV SCH ×2 (08:13→21:15)
[2019-08-23] MEDS ORDERED: Potassium Chloride 10% 20 MEQ/15 ML Soln 15 ML UD Cup GTUBE ONE (08:15)
[2019-08-23] MEDS: Losartan 50 MG Tab PO SCH (08:23)
[2019-08-23] MEDS: Calcium Carbonate/Vitamin D3 1500 MG-400 Units Tab PO SCH ×2 (08:23→21:15)
[2019-08-23] MEDS: Sertraline 50 MG Tab PO SCH (08:23)
[2019-08-23] MEDS: Lactobacillus Rhamnosus GG (Probiotic) Cap PO SCH ×2 (08:23→21:15)
[2019-08-23] MEDS: Magnesium Hydroxide 400 MG/5 ML Susp 30 ML Cup PO SCH ×2 (08:24→20:37)
[2019-08-23] MEDS: Magnesium Sulfate/Water 2 GM in Premix Bag 1 BAG IV SCH ×3 (08:47→20:30)
--- NOTE | 2019-08-23 09:03 | PN ---
DATE OF SERVICE: 08/16/2019 As noted in the upper endoscopy report, the patient appears to have necrosis of the gastric pouch as well as clinically and evidently by means of air and some dark fluid getting into the Salo-Kenny drains during air insufflation during the procedure. The patient at this point is fairly awake. She only received propofol for sedation. The situation was discussed with the patient's daughter as well, and the plan will be to proceed urgent exploratory laparotomy with procedures as indicated. This will likely involve a more proximal resection as well as a generalized washout of some degree of contamination of the peritoneal cavity. The possible need of simply doing a gastrogastrostomy, i.e. not reattaching the Pati limb at this point, was also reviewed with the patient and daughter. Potential risks including bleeding, infection, leaks from various GI tract closures, as well as the possibility of cardiopulmonary, septic, or hemorrhagic complications leading to were reviewed with both as well. The patient's daughter, Suni Vizcarra, gave me verbal consent, witnessed both by operating room director, Melina Taylor, and myself, and we will keep her posted as to the clinical course as the operation proceeds. Jaya Peraza MD Job #: [id number]
[2019-08-23] MEDS: Heparin Sodium 5,000 Units/ML Vial SUBCUT SCH ×2 (09:52→21:16)
--- NOTE | 2019-08-23 10:37 | PN ---
DATE OF SERVICE: 08/23/2019 The patient has been afebrile with stable vital signs. Her temperatures are running from 96 to 98. Heart rates in the 70s to 80s. Blood pressure is 155/75 this morning. O2 saturations are 93%. She is still coughing, but quite a bit less and very less productive. The patient had a net diuresis of around 5.5 liters yesterday and feels most comfortable in that regard. Her bowels are not moving as well. Labs show continued high white count of 25,000. Hemoglobin is 8.5, up from 8.1 yesterday after receiving 1 unit of packed RBCs. Potassium is a little low, and we will give her both KCl and K-Phos via the G-tube today. We will use the G-tube so as to avoid having to give her too much extra IV fluid volume. Dietary will see the patient regarding protein supplement options. She will need to be on only thin liquids for about 10 more days. Maximize activity and work with pulmonary toilet. We will begin pulling out all of her drains tomorrow if no intercurrent problems develop and, perhaps, transfer her to second floor tomorrow. Jaya Peraza MD Job #: [id number]
--- NOTE | 2019-08-23 11:49 | PN ---
DATE OF SERVICE: 08/21/2019 The patient's temperature is running from the 96 to 98 range. Vital signs are stable. Heart rate is in the 60s. Blood pressure is 142/69 this morning, and on 2 L nasal cannula O2 sats were running in the 91% to 96% range. She still has a fairly dense cough, but is clearing the secretions fairly well. The abdomen otherwise shows the drains becoming all quite clear. We will begin removing some of the internal drains. The drains in the incision we will leave in place for now. Otherwise, labs show a white count of 24,000, down slightly from yesterday. Hemoglobin 7.9. Potassium marginally low at 3.5. Creatinine continues to creep down. It is 2.2 with 1465 mL of urine recorded yesterday. Bilirubin remains slightly up at 1.4, but that also is coming down over the last 24 hours. The patient is becoming increasingly mobile and is up doing some walking and in the chair a fair bit of the time. The plan at this point will be to begin some Syed orally to provide some protein. We will plug her G-tube, other than when she is getting medications through that area. Her albumin is quite low at 1.3, and we will give her 50 mg of albumin daily x4 days. Potassium is 3.5, and we will give her some KCl 80 mEq through the G-tube to avoid having any large volumes of IV fluid. She will get two doses of Lasix today in order to augment some diuresis. We will change her abdominal dressing. We will type and cross for 2 units of packed RBCs in the morning, and if hemoglobin is not coming up somewhat, we will give her 1 unit of packed RBCs today. I think it would be nice to get some fluid off the patient before giving her additional blood products. The cultures have grown a combination of Morganella morganii, yeast, Strep viridans, and gram-positive rods. Presently, she is on Zyvox and meropenem, which should cover all of the organisms satisfactorily. Pain control seems to be satisfactory with the IV Dilaudid. Jaya Peraza MD Job #: [id number]
[2019-08-23] MEDS ORDERED: Potassium Phosphates 3 mMole/ML 15 ML SDV ONE (12:00)
--- NOTE | 2019-08-23 12:04 | PN ---
DATE OF SERVICE: 08/22/2019 The patient has been somewhat hypertensive, which probably indicates she needs to have some additional diuresis. Her temperature has been in 97 to 98 range, and vital signs otherwise stable. O2 sats on room air is currently at 94%, still has a fairly significant amount of coughing. Oral intake was fairly good with the patient tolerating the Syed. She wakes up sometimes in quite a bit of pain, and we will switch over to Tramadol on a scheduled basis and max that elixir prn. She has not moved her bowels as of yet, we will start some scheduled milk of magnesia and Dulcolax oral tablets. White count remains elevated, but at this point, there are no other signs of ongoing sepsis. Potassium is marginally low, we will give her some KCL and K-Phos through the G-tube today. She does have quite a bit of diffuse edema. We will give her 1 mg of Bumex at 8 a.m. and 8 p.m. Hemoglobin is low at 8.1, we will give her 1 unit of packed RBCs today as well. Otherwise, we will try to begin maximizing activity and continuing to work with pulmonary toilet, and continue present antibiotics per Dr. Mills. Jaya Peraza MD Job #: [id number]
[2019-08-23] MEDS: Pantoprazole 40 MG Delayed-Release Granules 1 Packet PO SCH (15:40)
[2019-08-24] MEDS: traMADol 50 MG Tab PO SCH ×4 (02:17→19:38)
[2019-08-24] MEDS: Magnesium Sulfate/Water 2 GM in Premix Bag 1 BAG IV SCH ×4 (02:19→19:38)
[2019-08-24] MEDS: Meropenem 500 MG in Sodium Chloride 0.9% 50 ML IV SCH ×4 (04:33→21:06)
[2019-08-24] MEDS: Albuterol/Ipratropium 3.0-0.5 MG/3 ML Neb Soln INH SCH ×4 (07:05→21:06)
[2019-08-24] MEDS: Budesonide 0.5 MG/2 ML Neb Susp NEB SCH ×2 (07:05→21:22)
[2019-08-24] MEDS: Acetylcysteine 20% 200 MG/ML 4 ML Nebulizer Soln SDV INH SCH ×3 (07:05→21:06)
[2019-08-24] MEDS: Calcium Carbonate/Vitamin D3 1500 MG-400 Units Tab PO SCH ×2 (08:02→21:09)
[2019-08-24] MEDS: Sertraline 50 MG Tab PO SCH (08:02)
[2019-08-24] MEDS: Lactobacillus Rhamnosus GG (Probiotic) Cap PO SCH ×2 (08:02→21:10)
[2019-08-24] MEDS: Losartan 50 MG Tab PO SCH ×2 (08:02→21:10)
[2019-08-24] MEDS: Bumetanide 1 MG/4 ML MDV IV SCH ×2 (08:03→15:45)
[2019-08-24] MEDS: Magnesium Hydroxide 400 MG/5 ML Susp 30 ML Cup PO SCH ×2 (08:08→21:10)
[2019-08-24] MEDS ORDERED: Potassium Chloride 10% 20 MEQ/15 ML Soln 15 ML UD Cup GTUBE ONE (08:15)
[2019-08-24] MEDS: Linezolid 600 MG in Premix Bag 1 BAG IV SCH ×2 (08:38→21:55)
--- NOTE | 2019-08-24 09:17 | OR ---
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 POSTOPERATIVE DIAGNOSES: 1. 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 2. Left subphrenic abscess. 3. Right subhepatic abscess with lesser diffuse peritoneal contamination. OPERATIVE PROCEDURE: 1. Exploratory laparotomy with: a. Drainage of subphrenic abscess (67799). b. Drainage of right subhepatic abscess (74110). c. Diffuse peritoneal washout and irrigation. d. Esophagogastrectomy with Pati-en-Y esophagojejunostomy (24823). e. Placement of tube gastrostomy (18846). 2. Upper GI endoscopy for facilitation of passage of EEA anvil (99833). 3. Insertion of left subclavian vein triple lumen catheter (18991). ANESTHESIA: General. IMAGING ANALYST: Kenia Valencia PA-C. INDICATIONS FOR PROCEDURE: Please see progress note dated shortly prior to this procedure beginning. DETAILS OF PROCEDURE: The patient was taken to the operating room, and after general endotracheal anesthesia was induced, the abdomen was prepped and draped. A Negrete catheter was reinserted at this time as well. Of note, at the time of intubation, there appeared to be no evidence of any aspiration of the esophageal contents into the tracheobronchial areas. The previous upper midline incision was then reopened, carried down through the skin and subcutaneous tissue and the peritoneal cavity. There was noted to be some scattered diffuse peritoneal contamination in all areas except for the right pericolic area and over the dome of the right lobe of the liver. There were 2 well-defined abscesses or infected fluid collections within the left subphrenic area adjacent to the gastrojejunostomy. This was drained and cultures were obtained. There was another well-defined fluid collection in the right subhepatic area. This was also drained and cultures obtained. At this point, 5 L of antibiotic containing saline solution using a combination of Zosyn and meropenem for antibiotics, were used to irrigate the abdomen and all areas until the drainage came back fairly clear. At that point, the area of the gastrojejunostomy was inspected. The right side of the distal portion of the gastric pouch was overtly necrotic. This included the area around the gastrojejunostomy, and at that point, in order to obtain a satisfactory proximal margin for reconstruction, the distal esophagus was encircled using primarily blunt dissection and then divided there with DARRIN black loads. The attachments of the gastric pouch were then divided with DARRIN victorino and the small bowel Pati limb was divided medially adjacent to the gastric pouch as well and the mesentery to that segment of the small bowel was also divided with DARRIN victorino and the specimen delivered from the field. At this point, the abdomen was then irrigated with additional 4 L of mixed antibiotic solution once again until all areas were quite clear in terms of return. This included irrigation well down in the depths of the pelvis. The anvil of a 25 mm EEA stapler was then initially attempted to be passed orally. This was attached to [place] Sump type tube because of the patient marked tortuosity of her esophagus with a previous band placement that could never be brought into the end of the divided esophagus in this intraabdominal location and the upper GI endoscope was employed, passed orally. The tip of gastroscope was then able to be manipulated into the end of the staple line at the esophagus. The mucosa at that level was all confirmed to be viable. Using biopsy forceps, this was then pushed up against the divided esophagus just posterior to the staple line. Cautery was then used to make a small opening there and the biopsy forceps then brought into the free abdomen. A 2-0 Vicryl stitch was then grasped and then gastroscope and biopsy forceps were then pulled back out the mouth, thus allowing the suture to be pulled up into that area. This was then sutured to the end of the [place] Sump type tube and the sutures then used to pull that back down, allowing the anvil to be pulled into the area of the divided esophagus. The Pati limb was then mobilized somewhat further. This was felt to be satisfactory in terms of length, and this had good blood supply. The main body of the EEA stapler was then placed with small opening in the area of the Pati limb, brought up the anvil, united with it, thus creating the esophagojejunostomy. Upon removal of the stapler, double donuts of mucosa were noted within. The anastomosis was reinforced with some 3-0 Vicryl seromuscular stitch, along with fibrin sealant. Next, a tube gastrostomy was then placed into the more distal bypassed portion of the stomach. An 18- Arabic Negrete catheter was placed through a stab wound just to the right of the upper aspect of the midline incision, and this was brought through the abdominal wall and a small opening made in the bypassed stomach, the tube inserted, injected with 10 mL of saline, and a pursestring stitch of 2-0 Vicryl stitch was placed around the tube. The stitch was then continued, initially fixing the gastrostomy tube up against the abdominal wall, and some additional 3-0 Vicryl sutures between the stomach and abdominal wall were then placed circumferentially as well, and the gastrostomy tube was then fixed to the skin with two 2-0 nylon stitch. At this point, the abdomen was once again irrigated with antibiotic- containing saline solution in all areas, including down into the depths of the pelvis. Two Salo-Kenny drains were then placed through stab wounds in the left subcostal area, one placed to the right of the esophagojejunostomy and the other to the left and from there into the splenic fossa. One additional drain was placed on the left side and taken down along the left colic gutter into the pelvis, and two drains were then placed, one heading up toward the right subhepatic area and one down along the right pericolic gutter and into the pelvis on the right side were placed. The midline fascia was then approximated with #2 Vicryl stitch. The skin and subcutaneous tissue had minimal contamination and had been irrigated extensively. Given this, a 15-Arabic round Salo-Kenny drain was placed through a stab wound adjacent to that and the subcutaneous tissue approximated with 3-0 Vicryl stitch and the skin with victorino. The drains were all affixed with some 3-0 Vicryl stitch and a dressing was then applied. To facilitate the patient's ongoing care, the upper chest and neck areas were then prepped and draped and a left subclavian vein triple-lumen catheter was placed without difficulty. Good in and out flow was noted. Ports were flushed with heparinized saline and catheter was then secured to the skin with some 3-0 silk stitch and dressing applied. Subsequent chest x- ray showed good catheter position without complications. The patient remained hemodynamically stable throughout the procedure with persistent but modest urine output and was transferred to the intensive care unit after being extubated and appeared to have reasonably adequate respiratory status. Physician bankruptcy legal assistant, Kenia Valencia, played an essential role in assisting in this case helping to position the patient, retract structures as needed, as well as suturing and cutting sutures where indicated. Her presence improved patient safety and decreased operative time. Jaya Peraza MD Job #: [id number]
[2019-08-24] MEDS: Heparin Sodium 5,000 Units/ML Vial SUBCUT SCH ×2 (09:35→21:13)
[2019-08-24] MEDS ORDERED: Potassium Phosphates 3 mMole/ML 15 ML SDV ONE (12:00)
[2019-08-24] MEDS: Labetalol 20 MG/4 ML Syringe IVPUSH PRN (12:35)
[2019-08-24] MEDS: Pantoprazole 40 MG Delayed-Release Granules 1 Packet PO SCH (15:52)
[2019-08-25] MEDS: Meropenem 500 MG in Sodium Chloride 0.9% 50 ML IV SCH ×4 (03:13→23:08)
[2019-08-25] MEDS: Magnesium Sulfate/Water 2 GM in Premix Bag 1 BAG IV SCH ×4 (03:16→21:05)
[2019-08-25] MEDS: traMADol 50 MG Tab PO SCH (03:19)
[2019-08-25] MEDS: Albuterol/Ipratropium 3.0-0.5 MG/3 ML Neb Soln INH SCH ×4 (07:07→21:24)
[2019-08-25] MEDS: Budesonide 0.5 MG/2 ML Neb Susp NEB SCH ×2 (07:07→21:23)
[2019-08-25] MEDS: Acetylcysteine 20% 200 MG/ML 4 ML Nebulizer Soln SDV INH SCH ×3 (07:07→21:24)
[2019-08-25] MEDS ORDERED: traMADol 50 MG Tab PO PRN (07:55)
[2019-08-25] MEDS ORDERED: Bumetanide 1 MG/4 ML MDV IVPUSH ONE (08:30)
[2019-08-25] MEDS: Calcium Carbonate/Vitamin D3 1500 MG-400 Units Tab PO SCH ×2 (08:51→21:00)
[2019-08-25] MEDS: Magnesium Hydroxide 400 MG/5 ML Susp 30 ML Cup PO SCH ×3 (08:51→20:58)
[2019-08-25] MEDS: Lactobacillus Rhamnosus GG (Probiotic) Cap PO SCH ×2 (08:52→21:00)
[2019-08-25] MEDS: Losartan 50 MG Tab PO SCH ×2 (08:53→21:01)
[2019-08-25] MEDS: Sertraline 50 MG Tab PO SCH (08:55)
[2019-08-25] MEDS ORDERED: Potassium Chloride 10% 20 MEQ/15 ML Soln 15 ML UD Cup PO ONE (09:00)
[2019-08-25] MEDS ORDERED: Acetaminophen 500 MG Tab PO SCH (09:00)
[2019-08-25] MEDS: Linezolid 600 MG in Premix Bag 1 BAG IV SCH ×2 (09:10→21:07)
[2019-08-25] MEDS: Acetaminophen 500 MG Tab PO SCH ×3 (09:18→21:03)
[2019-08-25] MEDS: Heparin Sodium 5,000 Units/ML Vial SUBCUT SCH ×2 (09:19→21:05)
[2019-08-25] MEDS: Potassium Phosphates 20 MMOLE in Sodium Chloride 0.9% 100 ML IV SCH ×3 (11:20→18:18)
[2019-08-25] MEDS: Pantoprazole 40 MG Delayed-Release Granules 1 Packet PO SCH (15:26)
[2019-08-25] MEDS: Dextrose 5%-Lactated Ringers 1,000 ML IV SCH (16:37)
[2019-08-26] MEDS: Meropenem 500 MG in Sodium Chloride 0.9% 50 ML IV SCH ×4 (03:19→21:49)
[2019-08-26] MEDS: Magnesium Sulfate/Water 2 GM in Premix Bag 1 BAG IV SCH (03:19)
[2019-08-26] MEDS: Acetaminophen 500 MG Tab PO SCH ×4 (03:19→21:49)
[2019-08-26] MEDS: Albuterol/Ipratropium 3.0-0.5 MG/3 ML Neb Soln INH SCH ×4 (07:06→21:55)
[2019-08-26] MEDS: Budesonide 0.5 MG/2 ML Neb Susp NEB SCH ×2 (07:06→21:55)
[2019-08-26] MEDS: Acetylcysteine 20% 200 MG/ML 4 ML Nebulizer Soln SDV INH SCH ×3 (07:06→21:56)
--- NOTE | 2019-08-26 08:11 | PN ---
DATE OF SERVICE: 08/25/2019 SUBJECTIVE: Karena states she is feeling better. Pain is controlled. Oral intake on a step 1 gastric bypass diet is 1380. Urine output has been incontinent due to urgency. HARRISON drains 3 and 5 were checked for amylase, and they were negative. Labs today; white count is 19.5, down from 21.8; hemoglobin stable at 9.2; potassium is 3.1 and BNP is 1973. She has been in the shower and has had 3 bowel movements. REVIEW OF SYSTEMS: Remainder of review of systems negative for any pertinent positives and negatives. OBJECTIVE: GENERAL: Karena Thornton is a pleasant 63-year-old female. VITAL SIGNS: TPR is 98, 67, 20. Blood pressure 151/78. HEENT: Negative. NECK: Supple. HEART: Regular rate and rhythm. LUNGS: Clear. ABDOMEN: Dressings dry and intact. EXTREMITIES: Without peripheral edema. ASSESSMENT: A. Dysphagia. B. Exploratory laparotomy with lysis of adhesions and: 1. Revision of the jejunojejunostomy component of the Pati-en-Y gastric bypass surgery. 2. Separate small-bowel resection. 3. Repair of incarcerated incisional hernia. 4. Repair of incarcerated umbilical hernia. PLAN: 1. Check CBC, CMP, phos, and BNP in a.m. 2. Tylenol 1000 mg every 6 hours p.r.n. pain. 3. Bumex 1 mg IV 1 time today. 4. Potassium chloride 40 mEq liquid through G-tube. 5. K-Phos 60 mmol IV 1 time. 6. Remove HARRISON drain 3 and HARRISON drain 5. 7. Place tramadol 50 mg to p.r.n., rather than scheduled. 8. We will evaluate p.r.n. or in a.m. Kenia Valencia PA-C /[id number]
[2019-08-26] MEDS ORDERED: Bumetanide 1 MG/4 ML MDV IVPUSH ONE (08:15)
[2019-08-26] MEDS: Magnesium Hydroxide 400 MG/5 ML Susp 30 ML Cup PO SCH ×3 (08:44→22:27)
[2019-08-26] MEDS: Linezolid 600 MG in Premix Bag 1 BAG IV SCH ×2 (08:44→20:41)
[2019-08-26] MEDS: Calcium Carbonate/Vitamin D3 1500 MG-400 Units Tab PO SCH ×2 (09:01→20:41)
[2019-08-26] MEDS: Losartan 50 MG Tab PO SCH ×2 (09:01→20:42)
[2019-08-26] MEDS: Sertraline 50 MG Tab PO SCH (09:03)
[2019-08-26] MEDS: Lactobacillus Rhamnosus GG (Probiotic) Cap PO SCH ×2 (09:03→20:41)
[2019-08-26] MEDS: Heparin Sodium 5,000 Units/ML Vial SUBCUT SCH ×2 (09:07→21:49)
[2019-08-26] MEDS: Dextrose 5%-Lactated Ringers 1,000 ML IV SCH (09:32)
[2019-08-26] MEDS ORDERED: Potassium Chloride 10% 20 MEQ/15 ML Soln 15 ML UD Cup GTUBE ONE (12:00)
[2019-08-26] MEDS: Pantoprazole 40 MG Delayed-Release Granules 1 Packet PO SCH (15:03)
--- NOTE | 2019-08-26 15:08 | PN ---
DATE OF SERVICE: 08/26/2019 SUBJECTIVE: Karena reports she is feeling better. Her step 1 diet is going well. Vital signs have been stable. Pain has been managed on tramadol. BNP is 1221. Hemoglobin is 9.6. HARRISON drains were not removed yesterday as ordered. They were removed early this a.m., and she had 80 out of HARRISON 4, 0 out of HARRISON 3, and 10 out of HARRISON 5. REVIEW OF SYSTEMS: Remainder of review of systems negative for any pertinent positives and negatives. OBJECTIVE: GENERAL: Karena Thornton is a 63-year-old female. VITAL SIGNS: TPR from 0308 is 98, 70, 20. Blood pressure 145/81. HEENT: Negative. NECK: Supple. HEART: Regular rate and rhythm. LUNGS: Clear. ABDOMEN: Aquacel dressing is on. She has the midline HARRISON drain that remains. EXTREMITIES: Without peripheral edema. ASSESSMENT: A. Dysphagia. B. Exploratory laparotomy with lysis of adhesions and: 1. Revision of the jejunojejunostomy component of the Pati-en-Y gastric bypass surgery. 2. Separate small-bowel resection. 3. Repair of incarcerated incisional hernia. 4. Repair of incarcerated umbilical hernia. PLAN: 1. Replace Aquacel dressing. 2. Step 2 gastric bypass diet without cereal. 3. Bumex 1 mg IV. 4. Check CBC, CMP, phos, and magnesium in a.m. 5. Good pulmonary toilet. 6. We will evaluate p.r.n. or in a.m. Kenia Valencia PA-C /[id number]
[2019-08-26] MEDS: Nystatin Crm 15 GM Tube TOP SCH (20:40)
[2019-08-26] MEDS ORDERED: Albuterol 0.083% 2.5 MG/3 ML Neb Soln ONE (22:27)
[2019-08-27] MEDS: Meropenem 500 MG in Sodium Chloride 0.9% 50 ML IV SCH (03:14)
[2019-08-27] MEDS: Acetaminophen 500 MG Tab PO SCH (03:15)
[2019-08-27] MEDS: Acetylcysteine 20% 200 MG/ML 4 ML Nebulizer Soln SDV INH SCH ×3 (07:19→20:48)
[2019-08-27] MEDS: Albuterol 0.083% 2.5 MG/3 ML Neb Soln NEB SCH ×3 (07:19→20:48)
[2019-08-27] MEDS: Albuterol/Ipratropium 3.0-0.5 MG/3 ML Neb Soln INH SCH ×4 (07:19→21:08)
[2019-08-27] MEDS: Budesonide 0.5 MG/2 ML Neb Susp NEB SCH ×2 (07:20→21:08)
[2019-08-27] MEDS ORDERED: Acetaminophen 500 MG Tab PO PRN (07:30)
[2019-08-27] MEDS ORDERED: Magnesium Hydroxide 400 MG/5 ML Susp 30 ML Cup PO PRN (07:31)
[2019-08-27] MEDS ORDERED: Potassium Chloride 10% 20 MEQ/15 ML Soln 15 ML UD Cup GTUBE ONE (09:00)
[2019-08-27] MEDS: Calcium Carbonate/Vitamin D3 1500 MG-400 Units Tab PO SCH ×2 (09:41→21:07)
[2019-08-27] MEDS: Losartan 50 MG Tab PO SCH ×2 (09:42→21:07)
[2019-08-27] MEDS: Nystatin Crm 15 GM Tube TOP SCH ×2 (09:43→21:09)
[2019-08-27] MEDS: Lactobacillus Rhamnosus GG (Probiotic) Cap PO SCH ×2 (09:43→21:08)
[2019-08-27] MEDS: Sertraline 50 MG Tab PO SCH (09:43)
[2019-08-27] MEDS: Fluconazole 100 MG Tab PO SCH (09:43)
[2019-08-27] MEDS: Bumetanide 1 MG/4 ML MDV IVPUSH SCH ×2 (09:53→17:15)
[2019-08-27] MEDS: Potassium Phosphates 22.5 MMOLE in Sodium Chloride 0.9% 250 ML IV SCH ×2 (09:54→13:40)
--- NOTE | 2019-08-27 10:09 | PN ---
DATE OF SERVICE: 08/27/2019 SUBJECTIVE: Karena continues to be a little bit short of breath. She can walk to the door, but she has walked. She did walk 3 times yesterday. She continues to retain fluid. She has a candidiasis rash under the folds of her skin. Nystatin was ordered during the night. She is planning to be discharged on 08/29/2019. She has no other concerns or questions today. She states each day she feels better. OBJECTIVE: GENERAL: Karena Thornton is a 63-year-old female. VITAL SIGNS: TPR is 98.3, 79, 20, blood pressure 161/79. HEENT: Negative. NECK: Supple. HEART: Regular rate and rhythm. LUNGS: Clear. ABDOMEN: Dressings dry and intact. Gastrostomy tube intact. HARRISON drain is draining a greasy type substance of 100 mL over the past 24 hours. EXTREMITIES: Revealed peripheral edema in her hands, upper and lower extremities. ASSESSMENT: . PLAN: 1. Communication order written to teach the patient to strip, drain, empty, measure, and record HARRISON drains 4 times a day. 2. Check CBC, CMP, mag, phos, and BNP in a.m. 3. Bumex 1 mg IV every 12 hours. 4. Diflucan 100 mg p.o. daily. 5. Potassium chloride 40 mEq 1 time today through gastrostomy tube. 6. Potassium phosphate 45 mmol IV 1 time today. 7. Tylenol 1000 mg every 6 hours changed to p.r.n. 8. Milk of magnesia 30 mL b.i.d. changed to p.r.n. 9. Discontinue D5LR. 10.Discontinue Zyvox. 11.Discontinue meropenem. 12.Continue to work on good pulmonary toilet. 13.We will evaluate p.r.n. or in a.m. Kenia Valencia PA-C /[id number]
[2019-08-27] MEDS: Heparin Sodium 5,000 Units/ML Vial SUBCUT SCH ×2 (11:17→21:09)
--- NOTE | 2019-08-27 11:54 | PN ---
DATE OF SERVICE: 08/24/2019 The patient has been afebrile with stable vital signs. The patient continues to diurese quite actively. The exact I and O was not being able to be calculated because she goes quite a bit of urination into the diaper, but appears to be still diuresing quite a bit. Her BNP is still up. So, I will continue to augment the diuresis today with some Bumex. Potassium, phosphate, and chloride are all somewhat on the lower end, and we will supplement those through the G-tube today and recheck some labs tomorrow. Otherwise, maximize activity and work with pulmonary toilet. We will check the amylase levels on the 2 HARRISON drains up near the gastrojejunostomy and if those are low, we will get those pulled either later today or tomorrow. The one HARRISON drain that goes in the upper incision has some fatty material in it, and I think we will leave that in for now. She will be transferred to second floor today, continuing the present antibiotics. Jaya Peraza MD Job #: [id number]
[2019-08-27] MEDS: Pantoprazole 40 MG Delayed-Release Granules 1 Packet PO SCH (16:49)
[2019-08-28] MEDS: Budesonide 0.5 MG/2 ML Neb Susp NEB SCH ×2 (07:36→20:42)
[2019-08-28] MEDS: Albuterol/Ipratropium 3.0-0.5 MG/3 ML Neb Soln INH SCH ×4 (07:36→20:42)
[2019-08-28] MEDS: Acetylcysteine 20% 200 MG/ML 4 ML Nebulizer Soln SDV INH SCH ×3 (07:36→20:42)
[2019-08-28] MEDS: Albuterol 0.083% 2.5 MG/3 ML Neb Soln NEB SCH ×3 (07:45→20:38)
[2019-08-28] MEDS: Nystatin Crm 15 GM Tube TOP SCH ×2 (09:20→20:37)
[2019-08-28] MEDS: Calcium Carbonate/Vitamin D3 1500 MG-400 Units Tab PO SCH ×2 (09:27→20:35)
[2019-08-28] MEDS: Lactobacillus Rhamnosus GG (Probiotic) Cap PO SCH ×2 (09:28→20:37)
[2019-08-28] MEDS: Losartan 50 MG Tab PO SCH ×2 (09:29→20:35)
[2019-08-28] MEDS: Fluconazole 100 MG Tab PO SCH (09:29)
[2019-08-28] MEDS: Sertraline 50 MG Tab PO SCH (09:29)
[2019-08-28] MEDS: Heparin Sodium 5,000 Units/ML Vial SUBCUT SCH ×2 (09:41→21:12)
[2019-08-28] MEDS: Potassium Phosphates 3 mMole/ML 15 ML SDV SCH ×2 (09:43→11:21)
[2019-08-28] MEDS: Magnesium Sulfate/Water 2 GM in Premix Bag 1 BAG IV SCH ×3 (09:51→21:12)
[2019-08-28] MEDS: Mupirocin Oint 22 GM Tube TOP SCH ×2 (09:52→20:34)
[2019-08-28] MEDS: Bumetanide 1 MG/4 ML MDV IVPUSH SCH ×2 (09:53→17:12)
[2019-08-28] MEDS: Pantoprazole 40 MG Delayed-Release Granules 1 Packet PO SCH (15:21)
[2019-08-29] MEDS: Magnesium Sulfate/Water 2 GM in Premix Bag 1 BAG IV SCH ×2 (03:04→09:03)
[2019-08-29] MEDS ORDERED: Bumetanide 1 MG/4 ML MDV IVPUSH ONE ×2 (06:32→09:00)
[2019-08-29] MEDS: Albuterol/Ipratropium 3.0-0.5 MG/3 ML Neb Soln INH SCH (07:24)
[2019-08-29] MEDS: Acetylcysteine 20% 200 MG/ML 4 ML Nebulizer Soln SDV INH SCH (07:24)
[2019-08-29] MEDS: Albuterol 0.083% 2.5 MG/3 ML Neb Soln NEB SCH (07:25)
[2019-08-29] MEDS: Budesonide 0.5 MG/2 ML Neb Susp NEB SCH (07:25)
[2019-08-29] MEDS: Mupirocin Oint 22 GM Tube TOP SCH (09:09)
[2019-08-29] MEDS: Lactobacillus Rhamnosus GG (Probiotic) Cap PO SCH (09:10)
[2019-08-29] MEDS: Potassium Phosphates 3 mMole/ML 15 ML SDV SCH ×2 (09:10→12:38)
[2019-08-29] MEDS: Heparin Sodium 5,000 Units/ML Vial SUBCUT SCH (09:11)
[2019-08-29] MEDS: Calcium Carbonate/Vitamin D3 1500 MG-400 Units Tab PO SCH (09:11)
[2019-08-29] MEDS: Nystatin Crm 15 GM Tube TOP SCH ×2 (09:11→12:37)
[2019-08-29] MEDS: Sertraline 50 MG Tab PO SCH (09:11)
[2019-08-29] MEDS: Fluconazole 100 MG Tab PO SCH (09:12)
[2019-08-29] MEDS: Losartan 50 MG Tab PO SCH (09:12)
--- NOTE | 2019-08-30 08:36 | DISCH ---
FINAL DIAGNOSES: 1. Incarcerated incisional and umbilical hernia with associated segment of ischemic small bowel. 2. Bariatric surgery, status post laparoscopic band removal and conversion to Pati-en-Y gastric bypass (January 2019). 3. Large gastrogastric fistula. 4. 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 5. Subphrenic and subhepatic abscesses with associated sepsis. ADDITIONAL DIAGNOSES: 1. History of asthma. 2. History of hypertension. 3. History of morbid obesity, BMI in excess of 60. 4. History of type 2 diabetes mellitus, now in resolution. 5. History of gastroesophageal reflux disease. 6. History of obstructive sleep apnea. OPERATIVE PROCEDURES: 1. On 08/07/2019, exploratory laparotomy with lysis of adhesions: a. Revision of jejunojejunostomy component of Pati-en-Y gastric bypass. b. Separate small bowel resection. c. Repair of incarcerated incisional hernia. d. Repair of incarcerated umbilical hernia. 2. On 08/10, upper gastrointestinal endoscopy. 3. On 08/12: a. Exploratory laparotomy with partial gastrectomy with Pati-en-Y gastrojejunostomy. b. Intraoperative upper gastrointestinal endoscopy for passage of EEA anvil. 4. On 08/16, upper gastrointestinal endoscopy. 5. On 08/16: a. Exploratory laparotomy with: I. Drainage of left subphrenic abscess. II.Drainage of a subhepatic abscess and diffuse peritoneal irrigation. III. Esophagogastrectomy with Pati-en-Y esophagojejunostomy. IV.Placement of tube gastrostomy and bypass the stomach. b. Upper gastrointestinal endoscopy for facilitation of passage of EEA anvil. c. Insertion of left subclavian vein triple-lumen catheter. SUMMARY: This is a 63-year-old who is status post conversion of lap band status to Pati-en- Y gastric bypass this past January. She at that time had an incisional hernia, which we deferred repairing. It contained omentum at that time. She then was transferred from [facility] with a picture of small bowel obstruction involving incarceration of that hernia. On the , that problem was addressed and the hernia was repaired. She has a revision of the jejunojejunostomy component of the Pati-en-Y gastric bypass at that time to facilitate better weight loss and then also had a separate small bowel resection with some deserosalized small bowel in its distal aspect along with the incarcerated incisional and umbilical hernias. On the patient's upper GI x-ray, there was some suggestion of fistula formation, and then, on 08/10, an upper GI endoscopy was undertaken, which did confirm a large gastrogastric fistula with most of the staple line partitioning the portion of stomach placed at the time of the band removal after having become dehisced. The patient was apparently doing quite well clinically, and then we proceeded with exploratory laparotomy with partial proximal gastrectomy with Pati-en-Y gastrojejunostomy. She needed upper GI endoscopy at that time to facilitate placement of the EEA anvil as her esophagus was at this point still quite tortuous. Following this procedure, the patient actually got obstructed for a period of time at the gastrojejunostomy. Then, upper endoscopy was undertaken on 08/16. This showed a large area of necrosis involving the gastric pouch, and after recovering from that, she was taken to the operating room where exploratory laparotomy was then undertaken. The patient was noted to have some diffuse peritonitis with focal left subphrenic and right subhepatic abscesses. The patient, at that point, underwent an esophagogastrectomy, removing the remainder of the pouch and re-connecting the Pati limb to the end of the esophagus, which should function well, the same as a gastric bypass, as current pouches are typically not larger than a ping-pong ball. She also had tube gastrostomy placed in the event that we needed to provide feeding in the event that the patient would get a leak from this anastomosis and may also need an upper GI endoscopy at that time for facilitation of the anvil placement. A triple-lumen catheter was placed at that time. Postoperatively, the patient had a period of significant sepsis, requiring ongoing IV antibiotics. She did get some fungal overgrowth in the abdominal wall pannus area secondary to that, which is being treated with nystatin topically and Diflucan. This has now resolved. She has been diuresing quite actively with IV Bumex daily and now has come down in terms of edema and weight fairly well. She is tolerating a step-2 diet and continue present antibiotics other than the Diflucan and should be instructed to stay on a step-2 diet with no solids until the first appointment, which will be with Kenia Valencia at [facility] on 09/06/2019 at 1 p.m. She will go home with a HARRISON drain in the upper incision which is still draining a fair amount, and this will probably be removed empirically next Friday. She is instructed to place Bactroban around the HARRISON site twice a day to minimize infection problems. ET tube at this point will remain plugged, and at the time of followup, we will check a CBC, CMP, and magnesium phosphate. The patient did require some transfusions during the hospitalization for acute blood loss anemia. Please see medication reconciliation sheet for medications on discharge.
--- NOTE | 2019-08-30 08:53 | PN ---
DATE OF SERVICE: 08/28/2019 The patient has been afebrile with stable vital signs and mobility gradually continues to improve, continued to diurese quite actively. BNP remains mildly elevated. We will give her Bumex and K-Phos once again today. Magnesium is low and also will begin supplementing that. Otherwise, one HARRISON still has quite a bit of output and it is a subcutaneous drain. We will start applying some Bactroban ointment around that HARRISON site so as to try to minimize chances of getting infected. She will go home with that drain in place, and plan is to go be discharged home tomorrow. Jaya Peraza MD Job #: [id number]
== END 2019-08-29 13:00 | disposition home or self-care (01) | DRG 326 ==
LOC: JP.MS 23:03 → JP.2SS 08-12 15:39 → JP.ICU 08-16 20:40 → JP.MS 08-24 15:24
PROVIDERS: ADMIT Surgery; ATTEND Surgery
PROC: 0DB80ZZ Excision of Small Intestine, Open Approach (ICD-10-PCS; principal; 2019-08-07)
PROC: 0DN80ZZ Release Small Intestine, Open Approach (ICD-10-PCS; 2019-08-07)
PROC: 0WQF0ZZ Repair Abdominal Wall, Open Approach (ICD-10-PCS; 2019-08-07)
PROC: 0WQF0ZZ Repair Abdominal Wall, Open Approach (ICD-10-PCS; 2019-08-07)
PROC: 0D160ZB Bypass Stomach to Ileum, Open Approach (ICD-10-PCS; 2019-08-07)
PROC: 0DJ08ZZ Inspection of Upper Intestinal Tract, Via Natural or Artificial Opening Endoscopic (ICD-10-PCS; 2019-08-10)
PROC: 0DB60ZZ Excision of Stomach, Open Approach (ICD-10-PCS; 2019-08-12)
PROC: 0DJ08ZZ Inspection of Upper Intestinal Tract, Via Natural or Artificial Opening Endoscopic (ICD-10-PCS; 2019-08-12)
PROC: 0W9G0ZZ Drainage of Peritoneal Cavity, Open Approach (ICD-10-PCS; 2019-08-16)
PROC: 0DB40ZZ Excision of Esophagogastric Junction, Open Approach (ICD-10-PCS; 2019-08-16)
PROC: 0DB60ZZ Excision of Stomach, Open Approach (ICD-10-PCS; 2019-08-16)
PROC: 0DJ08ZZ Inspection of Upper Intestinal Tract, Via Natural or Artificial Opening Endoscopic (ICD-10-PCS; 2019-08-16)
PROC: 0DH63UZ Insertion of Feeding Device into Stomach, Percutaneous Approach (ICD-10-PCS; 2019-08-16)
DX: K56.50 Intestinal adhesions [bands], unspecified as to partial versus complete obstruction (principal); A41.9 Sepsis, unspecified organism; K65.1 Peritoneal abscess; K43.0 Incisional hernia with obstruction, without gangrene; K55.9 Vascular disorder of intestine, unspecified; N17.9 Acute kidney failure, unspecified; K31.6 Fistula of stomach and duodenum; K95.89 Other complications of other bariatric procedure; K95.81 Infection due to other bariatric procedure; K42.0 Umbilical hernia with obstruction, without gangrene; Z68.44 Body mass index [BMI] 60.0-69.9, adult; E83.51 Hypocalcemia; E66.01 Morbid (severe) obesity due to excess calories; T18.2XXA Foreign body in stomach, initial encounter; K31.84 Gastroparesis; K31.89 Other diseases of stomach and duodenum
CPT/HCPCS: 36415; 36430; 74018; 74240; 80048; 80053; 81001; 82150; 82330; 82728; 82962; 83036; 83735; 83880; 84100; 85025; 85027; 86850; 86900; 86901; 86920; 86922; 87070; 87075; 87077; 87186; 87205; 88302; 88305; 88307; 94640; 94667; 94668; 94762; 97110-GO; 97110-GP; 97162-GP; 97165-GO; 97530-GP; 97535-GP; A9270-GY; C9113; J0171; J0330; J0610; J1100; J1170; J1200; J1642; J1644; J1815; J1885; J1940; J2001; J2020; J2060; J2175; J2185; J2250; J2405; J2543; J2704; J2710; J2765; J2795; J2920; J3010; J3410; J3411; J3420; J3475; J3490; J7040; J7050; J7060; J7120; J7121; J7620-GY; P9016; P9047; Q9967

== ENCOUNTER 2019-09-05 06:57 | Emergency (ER) | payer MEDICARE, MEDICAID ==
--- NOTE | 2019-09-05 07:14 | EDM.PDOC ---
ED HPI GENERAL MEDICAL PROBLEM - General Chief Complaint: Abdominal Pain Stated Complaint: RNY PATIENT Time Seen by Provider: 09/05/19 07:00 Source of Information: Reports: Patient, Provider History Limitations: Reports: No Limitations - History of Present Illness INITIAL COMMENTS - FREE TEXT/NARRATIVE: 63-year-old female who is status post abdominal surgery discharged from the hospital 1 week ago who is doing well but last night developed a sudden and fairly intense left upper abdominal pain radiating to the left shoulder. Some pain with breathing and movement but no shortness of breath, no nausea or vomiting, no fever. She was evaluated at an outside hospital and a CT scan revealed likely dehiscence of the proximal anastomosis with adjacent pneumoperitoneum fluid and stranding. Surgical follow-up was recommended so she was sent here for further evaluation. Physically she is stable. Onset: Sudden (Symptoms started fairly suddenly last evening, roughly 8 hours ago) Worsens with: Reports: Other (Deep breath), Movement Associated Symptoms: Reports: Other (Pain radiates into the left shoulder). Denies: Chest Pain, Cough, Fever/Chills, Shortness of Breath Left Upper Abdomen Pain Score (Numeric/FACES): 6 - Related Data Allergies Allergy/AdvReac Type Severity Reaction Status Date / Time cephalexin Allergy Hives Verified 09/05/19 07:10 glipizide Allergy Swelling Verified 09/05/19 07:10 iodine Allergy Cannot Verified 09/05/19 07:10 Remember lisinopril Allergy Cannot Verified 09/05/19 07:10 Remember niacin Allergy Cannot Verified 09/05/19 07:10 Remember oxycodone Allergy Itching Verified 09/05/19 07:10 simvastatin Allergy Swelling Verified 09/05/19 07:10 sodium fluoride Allergy Cannot Verified 09/05/19 07:10 Remember Yrruugb-Atc-Pez Reductase Allergy Cannot Verified 09/05/19 07:10 Inhibitor Remember metformin AdvReac Diarrhea Verified 09/05/19 07:10 Home Meds: Home Meds Albuterol Sulfate [Proair Respiclick] 2 puff INH Q4HR PRN 01/21/19 [History] Aspirin [Adult Low Dose Aspirin EC] 81 mg PO DAILY 01/21/19 [History] EPINEPHrine [Epipen 2-Yunior] 0.3 mg IM ASDIRECTED PRN 01/21/19 [History] Acetaminophen [Tylenol Solution] 650 mg PO Q6H PRN #100 ml 01/30/19 [Rx] Ondansetron [Zofran ODT] 1 tab SL Q8HR 08/06/19 [History] Albuterol/Ipratropium [DuoNeb 3.0-0.5 MG/3 ML] 3 ml INH QIDRT #120 neb 08/26/19 [Rx] Budesonide [Pulmicort] 0.5 mg NEB BIDRT #60 neb 08/26/19 [Rx] Lactobacillus Rhamnosus GG [Culturelle] 1 cap PO BID #60 cap 08/26/19 [Rx] traMADol [Ultram] 50 mg PO Q6H PRN #28 tablet 08/26/19 [Rx] Fluconazole [Diflucan] 100 mg PO DAILY #30 tablet 08/27/19 [Rx] Calcium Carbonate/Vitamin D3 [Calcium 500 mg Chewable Tablet] 1 tab PO BID #0 [Rx] Cholecalciferol (Vitamin D3) [Vitamin D3] 2,000 unit PO DAILY #0 08/29/19 [Rx] Cyanocobalamin (Vitamin B-12) [Vitamin B-12] 1 tab SL DAILY #0 08/29/19 [Rx] Cyclobenzaprine [Flexeril] 10 mg PO TID PRN #0 08/29/19 [Rx] Losartan [Cozaar] 50 mg PO DAILY #0 08/29/19 [Rx] Sertraline [Zoloft] 150 mg PO DAILY #0 08/29/19 [Rx] Vit C/E/Zn/Coppr/Lutein/Zeaxan [Preservision Areds 2 Softgel] 2 each PO DAILY # 0 08/29/19 [Rx] Vitamin B Complex [B Complex] 1 each PO DAILY #0 08/29/19 [Rx] Past Medical History HEENT History: Reports: Impaired Vision Other HEENT History: wears glasses Cardiovascular History: Reports: High Cholesterol Respiratory History: Reports: Asthma Gastrointestinal History: Reports: Hiatal Hernia, Other (See Below) Other Gastrointestinal History: umbilical hernia WAGON WINDER History: Reports: Endometriosis, Fibroids, Musculoskeletal History: Reports: Arthritis Neurological History: Reports: Brain Injury, Migraines, Other (See Below) Other Neuro History: 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 Psychiatric History: Reports: Depression Endocrine/Metabolic History: Reports: Obesity/BMI 30+ - Infectious Disease History Infectious Disease History: Reports: Chicken Pox, Measles - Past Surgical History HEENT Surgical History: Reports: Tonsillectomy, Other (See Below) Other HEENT Surgeries/Procedures: Oral Bridge x2 Cardiovascular Surgical History: Reports: None Respiratory Surgical History: Reports: None GI Surgical History: Reports: Bariatric Procedure, Colonoscopy Female Surgical History: Reports: Hysterectomy, Oophorectomy, Tubal Ligation Endocrine Surgical History: Reports: None Neurological Surgical History: Reports: Other (See Below) Other Neurological Surgeries/Procedures: spinal stenosis Musculoskeletal Surgical History: Reports: Arthroscopic Knee Other Musculoskeletal Surgeries/Procedures:: scope left knee-hardware inplace Social & Family History - Family History Family Medical History: Noncontributory - Tobacco Use Smoking Status *Q: Former Smoker Used Tobacco, but Quit: Yes Month/Year Tobacco Last Used: 1975 - Caffeine Use Caffeine Use: Reports: None - Recreational Drug Use Recreational Drug Use: No ED ROS GENERAL - Review of Systems Review Of Systems: See Below Constitutional: Reports: Malaise. Denies: Fever, Chills HEENT: Reports: No Symptoms Respiratory: Reports: Pleuritic Chest Pain Cardiovascular: Denies: Chest Pain GI/Abdominal: Reports: Abdominal Pain Neurological: Denies: Headache Psychiatric: Reports: No Symptoms ED EXAM, GI/ABD - Physical Exam Exam: See Below Exam Limited By: No Limitations General Appearance: Alert, No Apparent Distress, Other (Fairly comfortable when lying still) Eyes: Bilateral: Normal Appearance (No jaundice, hydration looks normal) Respiratory/Chest: No Respiratory Distress, Lungs Clear Cardiovascular: Regular Rate, Rhythm GI/Abdominal Exam: Tender (Patient is very tender to even light palpation in the left upper quadrant with guarding and rebound tenderness present, much less tenderness to palpation of the right-side or lower abdomen), Abnormal Bowel Sounds (Bowel sounds are hypoactive) Course - Vital Signs Last Recorded V/S: Last Vital Signs Temp 97.9 F 09/05/19 09:10 Pulse 87 09/05/19 09:10 Resp 33 H 09/05/19 09:10 BP 163/94 H 09/05/19 09:10 Pulse Ox 87 L 09/05/19 09:10 - Orders/Labs/Meds Meds: Medications Discontinued Medications Generic Name Dose Route Start Last Admin Trade Name Freq PRN Reason Stop Dose Admin Sodium Chloride 1,000 mls @ 125 mls/hr 09/05/19 08:00 09/05/19 07:58 Normal Saline IV 125 mls/hr ASDIRECTED WERNER Administration Piperacillin/Tazobactam/ 100 mls @ 100 mls/hr 09/05/19 09:15 09/05/19 09:23 Dextrose 4.5 gm/ Premix IV 09/05/19 10:14 100 mls/hr ONETIME ONE Administration - Re-Assessments/Exams Free Text/Narrative Re-Assessment/Exam: 09/05/19 07:17 CT report and medical evaluation was reviewed from the outside hospital. No further work-up or treatment is needed in the emergency room, Kenia Valencia was contacted and will assess the patient to consider admission. She will likely need a surgical consultation. 09/05/19 09:31 After surgical consultation it was recommended the patient be transferred due to our lack of imaging studies at this time, the CT scan is unavailable for possibly most of the day. Dr. Salazar kindly arranged for the patient be transferred to [facility] Departure - Departure Time of Disposition: 09:18 Disposition: DC/Tfer to [facility] Clinical Impression: Abdominal pain Qualifiers: Abdominal location: left upper quadrant Qualified Code(s): R10.12 - Left upper quadrant pain - Discharge Information Referrals: PCP,None [Primary Care Provider] - Forms: ED Department Discharge Sepsis Event Note - Evaluation Sepsis Screening Result: Possible Severe Sepsis Risk - Focused Exam Vital Signs: Vital Signs Temp Pulse Resp BP Pulse Ox 09/05/19 09:10 97.9 F 87 33 H 163/94 H 87 L 09/05/19 08:27 80 31 H 133/69 91 L 09/05/19 07:56 87 12 131/67 93 L 09/05/19 07:27 85 28 H 129/67 92 L 09/05/19 06:59 99.5 F 87 27 H 151/80 H 93 L 09/05/19 06:58 99.5 F 87 27 H 151/80 H 93 L Date Exam was Performed: 09/05/19 Time Exam was Performed: 09:31
[2019-09-05] MEDS ORDERED: Sodium Chloride 0.9% 1,000 ML IV SCH (08:00)
[2019-09-05] MEDS ORDERED: Piperacillin/Tazobactam 4.5 GM in Sodium Chloride 0.9% 100 ML IV ONE (08:58)
[2019-09-05] MEDS ORDERED: Piperacillin/Tazobactam/Dext 4.5 GM in Premix Bag 1 BAG IV ONE (09:15)
--- NOTE | 2019-09-05 09:59 | PN ---
DATE OF SERVICE: 09/05/2019 DISCHARGE DIAGNOSIS: Status post Pati-en-Y. HISTORY OF PRESENT ILLNESS: A 63-year-old female who was originally seen in [place]. The patient had some new abdominal pain and underwent a noncontrast CT scan. The patient had multiple revisions of her Pati-en-Y and there was some concern that she could have an anastomotic failure. She was transferred to [facility]. The recommendation from Radiology and based upon her clinical exam is the patient does require a CT scan with oral contrast. Unfortunately, our CT scanner is unavailable and no one is available to repair it at this time. The time of the CT scan repair is unknown. Therefore, the patient needs to be transferred to a facility with a functioning CT scanner. The closest bariatric group with a functioning CT scanner is [facility]. They have accepted the transfer. She will follow up with Dr. Peraza as needed. Khari Salazar MD /[id number]
--- NOTE | 2019-09-05 10:30 | CONS ---
DATE OF SERVICE: 09/05/2019 REFERRING PHYSICIAN: CONSULTING PHYSICIAN: Khari Salazar MD This is a consult from Dr. Bhatt. REASON FOR CONSULTATION: Abdominal pain. HISTORY OF PRESENT ILLNESS: This is a 63-year-old female, who was originally seen at [facility] due to some abdominal pain. The patient underwent a CT scan, which was concerning for possible anastomotic failure versus abscess versus postsurgical abnormality. The patient underwent a Pati-en-Y gastric bypass on 08/07/[address] Jaya Peraza, which was actually revision of her jejunojejunal anastomosis. The patient then on the underwent a partial gastrectomy to revise the Pati-en-Y and then on the , she developed an abscess which was subsequently drained. The patient is resting comfortably, and she states her pain is 1 to 2 out of 10. She informs me her drain output has not changed in character or volume. PAST MEDICAL HISTORY: Asthma; history of GERD; endometriosis; hypertension; the patient originally had a lap band, which was converted to a Pati-en-Y during this recent hospitalization; morbid obesity; type 2 diabetes, however, the patient is not currently taking any medications for this. PAST SURGICAL HISTORY: Appendectomy, back surgery, hysterectomy, lap band and then revision of the band in 2009, ovarian surgery, and tonsils. FAMILY HISTORY: COPD, diabetes, rheumatoid arthritis. SOCIAL HISTORY: She is a former smoker, but not actively smoking. REVIEW OF SYSTEMS: GENERAL: The patient has appropriate concerns. HEENT: No recent upper respiratory tract infections. CARDIOVASCULAR: No current chest pain at this time. RESPIRATORY: The patient is not short of breast. GASTROINTESTINAL: She is tolerating her diet and having bowel movements. NEUROLOGICAL: No acute concerns. PSYCHIATRIC: No acute concerns. The remainder of review of systems is reviewed and is negative. PHYSICAL EXAMINATION: VITAL SIGNS: Temperature 99.5, blood pressure 151/80, 93% on room air. HEENT: Pupils are equal. NECK: Supple. LUNGS: Clear. CARDIOVASCULAR: Regular rhythm and rate. ABDOMEN: Midline abdominal incision without evidence of cellulitis. There is a drain noted. The patient has milky-type drainage to this. She does explain to me that this is how it has always looked since the original placement. She also has a feeding tube noted. EXTREMITIES: She does move all extremities. NEUROLOGICAL: She is oriented x3. PSYCHIATRIC: No gross depression. LABORATORY DATA: Laboratory results show a white blood cell count of 12.5, hemoglobin 10. CT scan which was performed at another facility shows a possible dehiscence or possible anastomotic failure with food and fluid stranding. There is also a feeding tube noted. ASSESSMENT AND PLAN: Pati-en-Y with possible anastomotic failure versus abscess versus postsurgical change. The patient did have a revision and lap band removal on this area, therefore, it is unclear if this is an actual leak. The patient would most likely need a CT scan with oral contrast to see if this is an actual leak or if this is just a postsurgical change or an abscess. If it is an abscess, there is a possibility of percutaneous drainage versus a leak which requires a significant surgery. I have been performed the CT scanner is broken and the time to change it may take up till Friday as the etiology of the malfunction is unknown at this time. The closest bariatric center would be [facility]. We did discuss with them the patient, and they have graciously accepted the patient. The patient remains hemodynamically stable and quite minimal pain, therefore, the best course of action would be transportation by ground in an urgent fashion. I did discuss with the patient the risks of transportation, the appropriate level, which I think most likely would be ground ambulance as she remains hemodynamically stable and has minimal pain at this time. She will follow up with Dr. Peraza and Kenia Valencia once the patient is evaluated in [place]. Khari Salazar MD /[id number]
== END 2019-09-05 09:19 | disposition critical access hospital (66) ==
LOC: JP.ED 06:57
DX: R10.12 Left upper quadrant pain (principal); J45.909 Unspecified asthma, uncomplicated; I10 Essential (primary) hypertension; E11.9 Type 2 diabetes mellitus without complications; E66.01 Morbid (severe) obesity due to excess calories; Z88.1 Allergy status to other antibiotic agents; Z88.2 Allergy status to sulfonamides; Z88.8 Allergy status to other drugs, medicaments and biological substances; Z79.82 Long term (current) use of aspirin; Z87.891 Personal history of nicotine dependence; Z79.899 Other long term (current) drug therapy
CPT/HCPCS: 96361; 96374; 99285; J2543; J7030

== ENCOUNTER 2021-02-06 07:04 | Inpatient (IN) | payer MEDICARE, MEDICAID ==
[~2021-02-06 07:04] MED LIST changes: +Bupivacaine 0.5% 50 ML MDV ONE; -Bupivacaine 0.5%/EPINEPHrine 1:200,000 50 ML MDV ONE; +Lidocaine 1% with EPINEPHrine 1:100,000 50 ML MDV ONE; +Meropenem 500 MG SDV ONE
[2021-02-06] MEDS ORDERED: Succinylcholine 200 MG/10 ML MDV ONE (07:08)
[2021-02-06] MEDS ORDERED: Dexamethasone 4 MG/ML SDV ONE (07:08)
[2021-02-06] MEDS ORDERED: Glycopyrrolate 0.2 MG/ML 5 ML MDV ONE (07:08)
[2021-02-06] MEDS ORDERED: Rocuronium 50 MG/5 ML Vial ONE ×2 (07:08→10:11)
[2021-02-06] MEDS ORDERED: Ondansetron 4 MG/2 ML SDV ONE (07:08)
[2021-02-06] MEDS ORDERED: fentaNYL 250 MCG/5 ML SDV ONE ×2 (07:08→09:18)
[2021-02-06] MEDS ORDERED: Neostigmine Methylsulfate 1 MG/ML 5 ML Syringe ONE (07:08)
[2021-02-06] MEDS ORDERED: Propofol 200 MG/20 ML SDV ONE (07:08)
[2021-02-06] MEDS ORDERED: Levofloxacin 500 MG/20 ML SDV ONE (07:15)
[2021-02-06] MEDS ORDERED: Acetaminophen 500 MG Tab PO ONE (07:30)
[2021-02-06] MEDS ORDERED: Naloxone 0.4 MG/ML SDV IVPUSH PRN (07:41)
[2021-02-06] MEDS ORDERED: HYDROmorphone/Normal Saline 15 MG/30 ML PCA IV PRN (07:41)
[2021-02-06] MEDS ORDERED: Dextrose 5%-Lactated Ringers 1,000 ML IV SCH (07:45)
[2021-02-06] MEDS ORDERED: Budesonide 0.5 MG/2 ML Neb Susp NEB ONE (08:00)
[2021-02-06] MEDS ORDERED: Naloxone 0.4 MG/ML SDV IV PRN (08:00)
[2021-02-06] MEDS ORDERED: Albuterol/Ipratropium 3.0-0.5 MG/3 ML Neb Soln NEB ONE (08:00)
[2021-02-06] MEDS ORDERED: Lactated Ringers 1,000 ML ONE (08:12)
[2021-02-06] MEDS ORDERED: Levofloxacin/Dextrose 5%-Water 500 MG in Premix Bag 1 BAG IV ONE (08:30)
[2021-02-06] MEDS ORDERED: hydrOXYzine HCL 100 MG/2 ML SDV IM PRN (13:15)
[2021-02-06] MEDS ORDERED: Ondansetron 4 MG/2 ML SDV IVPUSH PRN (13:16)
[2021-02-06] MEDS ORDERED: Albuterol/Ipratropium 3.0-0.5 MG/3 ML Neb Soln INH PRN (13:50)
[2021-02-06] MEDS: Albuterol/Ipratropium 3.0-0.5 MG/3 ML Neb Soln INH SCH ×2 (14:31→23:08)
[2021-02-06] MEDS: Dextrose 5%-Lactated Ringers 1,000 ML IV SCH ×2 (17:19→23:08)
[2021-02-06] MEDS: Cyclobenzaprine 10 MG Tab PO PRN (17:19)
[2021-02-06] MEDS: Acetaminophen 500 MG Tab PO SCH ×2 (17:20→23:08)
[2021-02-06] MEDS: Budesonide 0.5 MG/2 ML Neb Susp INH SCH (23:08)
[2021-02-07] MEDS: Acetaminophen 500 MG Tab PO SCH ×4 (03:49→21:01)
[2021-02-07] MEDS: Cyclobenzaprine 10 MG Tab PO PRN ×3 (03:54→21:13)
[2021-02-07] MEDS: Dextrose 5%-Lactated Ringers 1,000 ML IV SCH ×3 (05:18→21:15)
[2021-02-07] MEDS: Budesonide 0.5 MG/2 ML Neb Susp INH SCH ×2 (07:18→21:01)
[2021-02-07] MEDS: Albuterol/Ipratropium 3.0-0.5 MG/3 ML Neb Soln INH SCH ×4 (07:18→21:01)
[2021-02-07] MEDS ORDERED: Ondansetron 4 MG Tab.DIS PO PRN (07:31)
[2021-02-07] MEDS: Levofloxacin/Dextrose 5%-Water 500 MG in Premix Bag 1 BAG IV SCH (08:55)
[2021-02-07] MEDS: Potassium Chloride 20 MEQ Tab.ER PO SCH (08:56)
[2021-02-07] MEDS: Enoxaparin 40 MG/0.4 ML Syringe SUBCUT SCH (08:56)
[2021-02-07] MEDS: Losartan 50 MG Tab PO SCH (08:57)
[2021-02-07] MEDS: Aspirin 81 MG Tab.EC PO SCH (08:57)
[2021-02-07] MEDS: Sertraline 50 MG Tab PO SCH (08:59)
--- NOTE | 2021-02-07 12:02 | PN ---
DATE OF SERVICE: 02/07/2021 SUBJECTIVE: Karena is postop day #1. Oral intake was 310. Negrete output 910. Vital signs have been stable. She has been up, ambulating. Pain has been controlled with the use of a AMUSEMENT RIDE OPERATOR. REVIEW OF SYSTEMS: Remainder of review of systems negative for any pertinent positives and negatives. OBJECTIVE: GENERAL: Karena Thornton is a pleasant 65-year-old female. She is alert and orientated. VITAL SIGNS: TPR 96.5, 64, 18, blood pressure 117/65. HEENT: Negative. NECK: Supple. HEART: Regular rate and rhythm. LUNGS: Clear. ABDOMEN: Dressings dry and intact. Aquacel dressings on. EXTREMITIES: Without peripheral edema. ASSESSMENT: 1. Exploratory laparotomy with lysis of extensive adhesions. 2. Repair of incarcerated recurrent incisional hernia with mesh. 3. Partial xiphoidectomy. 4. Placement of Vicryl mesh. POSTOPERATIVE DIAGNOSIS: 1. Incarcerated recurrent incisional hernia and extension of xiphoid process. 2. Date of procedure: 02/06/2021. Surgeon: Jaya Peraza MD. PLAN: 1. Decrease D5 LR to 100 mL per hour. 2. Discontinue Negrete catheter. 3. Step 2 gastric bypass diet. 4. May shower. 5. Zofran ODT 4 mg q.4 hours sublingual p.r.n. nausea. 6. Continue use of incentive spirometer. 7. We will evaluate p.r.n. or in a.m. Kenia Valencia PA-C /[id number]
[2021-02-08] MEDS: Acetaminophen 500 MG Tab PO SCH ×4 (03:43→21:56)
[2021-02-08] MEDS: Albuterol/Ipratropium 3.0-0.5 MG/3 ML Neb Soln INH SCH ×4 (07:01→20:07)
[2021-02-08] MEDS: Budesonide 0.5 MG/2 ML Neb Susp INH SCH ×2 (07:01→20:07)
[2021-02-08] MEDS: Levofloxacin/Dextrose 5%-Water 500 MG in Premix Bag 1 BAG IV SCH (07:56)
[2021-02-08] MEDS: Sertraline 50 MG Tab PO SCH (08:06)
[2021-02-08] MEDS: Enoxaparin 40 MG/0.4 ML Syringe SUBCUT SCH (08:06)
[2021-02-08] MEDS: Potassium Chloride 20 MEQ Tab.ER PO SCH (08:07)
[2021-02-08] MEDS: Bisacodyl 5 MG Tab PO SCH ×2 (08:08→20:08)
[2021-02-08] MEDS: Losartan 50 MG Tab PO SCH (08:08)
[2021-02-08] MEDS: Aspirin 81 MG Tab.EC PO SCH (08:08)
[2021-02-08] MEDS: Docusate Sodium 100 MG Cap PO SCH ×2 (09:30→20:08)
[2021-02-08] MEDS: HYDROmorphone 2 MG Tab PO PRN ×3 (09:42→17:33)
--- NOTE | 2021-02-08 12:05 | PN ---
DATE OF SERVICE: 02/08/2021 SUBJECTIVE: Karena is postoperative day #2. She has been up, ambulating. Pain has been controlled with the MD PSYCHIATRY. Oral intake 1710, output 700. REVIEW OF SYSTEMS: Remainder of review of systems negative for any pertinent positives and negatives. OBJECTIVE: GENERAL: Karena Thornton is a pleasant 65-year-old female. VITAL SIGNS: TPR is 97.4, 87, 16, blood pressure 136/70. HEENT: Negative. NECK: Supple. HEART: Regular rate and rhythm. LUNGS: Clear. ABDOMEN: Aquacel dressing is dry and intact. Abdominal binder is on. EXTREMITIES: Without peripheral edema. ASSESSMENT: 1. Exploratory laparotomy with lysis of extensive adhesions. 2. Repair of incarcerated recurrent incisional hernia with mesh. 3. Partial xiphoidectomy. 4. Placement of Vicryl mesh. POSTOPERATIVE DIAGNOSIS: Incarcerated recurrent incisional hernia and extension of xiphoid process. Date of procedure: 02/06/2021. Surgeon: Jaya Peraza MD. PLAN: 1. Discontinue MD PSYCHIATRY and continuous pulse ox. 2. Saline lock IV. 3. Dilaudid 2 to 4 mg every 4 hours p.r.n. pain. 4. Colace 100 mg p.o. b.i.d. 5. Bisacodyl 10 mg p.o. b.i.d., discontinue after the patient has a bowel movement. 6. Continue use of incentive spirometer. 7. We will evaluate p.r.n. or in a.m. Kenia Valencia PA-C /[id number]
[2021-02-09] MEDS: Cyclobenzaprine 10 MG Tab PO PRN (00:27)
[2021-02-09] MEDS: Acetaminophen 500 MG Tab PO SCH ×4 (04:23→21:20)
[2021-02-09] MEDS: HYDROmorphone 2 MG Tab PO PRN ×4 (04:23→19:54)
[2021-02-09] MEDS: Budesonide 0.5 MG/2 ML Neb Susp INH SCH ×2 (07:02→21:18)
[2021-02-09] MEDS: Albuterol/Ipratropium 3.0-0.5 MG/3 ML Neb Soln INH SCH ×4 (07:02→21:19)
--- NOTE | 2021-02-09 08:44 | PN ---
DATE OF SERVICE: 02/09/2021 SUBJECTIVE: Karena reports the pain has been controlled. She has been up ambulating. Vital signs stable. Oral intake 1170 and urine output 2900. She is passing gas. Continues on a step 2 gastric bypass diet. REVIEW OF SYSTEMS: Remainder of review of systems negative for any pertinent positives and negatives. OBJECTIVE: GENERAL: Karena Thornton is a pleasant 65-year-old female. She is alert and orientated. VITAL SIGNS: TPR: 96.7, 71, 18. Blood pressure 121/72. HEENT: Negative. NECK: Supple. HEART: Regular rate and rhythm. LUNGS: Clear. ABDOMEN: Aquacel dressing is on. Abdominal binder is on. EXTREMITIES: Without peripheral edema. ASSESSMENT: 1. Exploratory laparotomy with lysis of extensive adhesions. 2. Repair of incarcerated recurrent incisional hernia with mesh. 3. Partial xiphoidectomy. 4. Placement of Vicryl mesh. POSTOPERATIVE DIAGNOSES: Incarcerated recurrent incisional hernia and extension of xiphoid process. Date of surgery 02/06/2021. Surgeon: Jaya Peraza MD. PLAN: Continue use of incentive spirometer and ambulation. Milk of magnesia 30 mL b.i.d., may discontinue when patient has a bowel movement. We will evaluate p.r.n. or in a.m. Kenia Valencia PA-C /[id number]
[2021-02-09] MEDS: Bisacodyl 5 MG Tab PO SCH ×2 (08:46→21:12)
[2021-02-09] MEDS: Potassium Chloride 20 MEQ Tab.ER PO SCH (08:46)
[2021-02-09] MEDS: Sertraline 50 MG Tab PO SCH (08:46)
[2021-02-09] MEDS: Aspirin 81 MG Tab.EC PO SCH (08:46)
[2021-02-09] MEDS: Enoxaparin 40 MG/0.4 ML Syringe SUBCUT SCH (08:46)
[2021-02-09] MEDS: Docusate Sodium 100 MG Cap PO SCH ×2 (08:46→21:20)
[2021-02-09] MEDS: Losartan 50 MG Tab PO SCH (08:47)
[2021-02-09] MEDS ORDERED: Magnesium Hydroxide 400 MG/5 ML Susp 30 ML Cup PO SCH (09:00)
[2021-02-10] MEDS: HYDROmorphone 2 MG Tab PO PRN (02:24)
[2021-02-10] MEDS: Acetaminophen 500 MG Tab PO SCH ×2 (05:06→10:53)
[2021-02-10] MEDS: Budesonide 0.5 MG/2 ML Neb Susp INH SCH (07:10)
[2021-02-10] MEDS: Albuterol/Ipratropium 3.0-0.5 MG/3 ML Neb Soln INH SCH ×2 (07:10→10:43)
[2021-02-10] MEDS: Potassium Chloride 20 MEQ Tab.ER PO SCH (07:59)
[2021-02-10] MEDS: Aspirin 81 MG Tab.EC PO SCH (07:59)
[2021-02-10] MEDS: Losartan 50 MG Tab PO SCH (08:00)
[2021-02-10] MEDS: Enoxaparin 40 MG/0.4 ML Syringe SUBCUT SCH (08:01)
[2021-02-10] MEDS: Bisacodyl 5 MG Tab PO SCH (08:01)
[2021-02-10] MEDS: Sertraline 50 MG Tab PO SCH (08:01)
[2021-02-10] MEDS: Docusate Sodium 100 MG Cap PO SCH (08:02)
[2021-02-10] MEDS ORDERED: Silver Sulfadiazine 1% Crm 50 GM Tube TOP SCH (11:00)
--- NOTE | 2021-02-12 08:18 | DISCH ---
ADMISSION DIAGNOSES: 1. Incisional hernia, status post Pati-en-Y gastric bypass surgery. 2. Morbid obesity, BMI 41. 3. Asthma. 4. Hypertension. 5. Type 2 diabetes mellitus. 6. Obstructive sleep apnea and unspecified surgical malabsorption. 7. B12 deficiency. 8. Vitamin D deficiency. DISCHARGE DIAGNOSES: 1. Exploratory laparotomy with lysis of extensive adhesions. 2. Repair of incarcerated recurrent incisional hernia with mesh. 3. Partial xiphoidectomy. 4. Placement of Vicryl mesh. POSTOPERATIVE DIAGNOSES: 1. Incarcerated recurrent incisional hernia. 2. Extension of xiphoid process. Date of surgery, 02/06/2021. Surgeon: Jaya Peraza MD. HISTORY: Karena Thornton is a pleasant 65-year-old female with recurrent incisional hernia. After preoperative evaluation and discussion of possible risks and possible complications, she wished to proceed with surgical procedure. HOSPITAL COURSE: Karena had her surgery on 02/06/2021. She had no operative complications. On postop day 1, she continued with the CARDIOLOGY TECHNOLOGIST for pain control and her IV was decreased, Negrete catheter was discontinued, and she was started on step-2 gastric bypass diet. On postop day 2, CARDIOLOGY TECHNOLOGIST was discontinued. She was changed to oral pain medication and given bowel stimulation. On postop day 3, she did have a bowel movement. Pain was controlled and she continued to ambulate. Use of her incentive spirometer. On postop day 4, pain was controlled, activity was good, vital signs stable, and she was able to be discharged to home without any complications. PHYSICAL EXAMINATION: GENERAL: Karena Thornton is a pleasant 65-year-old female. VITAL SIGNS: Height is 5 feet 4 inches, weight is 278 pounds, BMI is 47. TPR is 97.5, 67, 14, blood pressure 121/74. HEENT: Negative. NECK: Supple. HEART: Regular rate and rhythm. LUNGS: Clear. ABDOMEN: Aquacel dressing was taken off. SKIN: Quite red, pruritic where the adhesive was of the Aquacel dressing. Vickey intact. Incision healing well. Aquacel will be left off due to a local reaction. Abdominal binder is on with 2 rolled up Kerlix to be placed over former hernia site. EXTREMITIES: Revealed 1+ peripheral edema. DISPOSITION: Discharged to home. CONDITION: Stable and improving. She will be discharged to home with home care for postop weakness. HOME MEDICATIONS: 1. Dilaudid 2 mg p.o. every 4 hours p.r.n. pain, #40. 2. She is to resume her home medications that she took prior to admission. FOLLOWUP APPOINTMENT: Kenia Valencia PA-C, on 02/20/2021 at 10 a.m. DIET: Step-3 gastric bypass diet. Drink 8 to 10 glasses of water a day. ACTIVITY: No lifting greater than 10 pounds for 8 weeks. OTHER ACTIVITY: Walk 6 times daily inside your home. Driving: Do not drive for 1 week. Shower/bathing: May shower. Keep operative site clean and dry. Wear abdominal binder for 8 weeks if tolerated. Notify provider if any fever, increased pain, swelling, redness, drainage, nausea, or vomiting. Use incentive spirometer 10 times every hour while awake. /[id number]
--- NOTE | 2021-02-13 11:05 | OR ---
DATE OF PROCEDURE: 02/06/2021 SURGEON: Jaya Peraza MD PREOPERATIVE DIAGNOSIS: Incarcerated recurrent incisional hernia. POSTOPERATIVE DIAGNOSES: 1. Incarcerated recurrent incisional hernia. 2. Extensive intraabdominal adhesions. 3. Ectopic extension of the xiphoid process along previous upper midline incision. OPERATIVE PROCEDURES: Exploratory laparotomy with lysis of extensive adhesions and: 1. Repair of incarcerated recurrent incisional hernia with mesh ([id number], [id number]). 2. Partial xiphoidectomy including excision of ectopic xiphoid bone extending onto the previous abdominal wall incision (14260). 3. Placement of Vicryl mesh to displace pelvic and abdominal wall from underlying viscera to limit recurrent adhesion formation. ANESTHESIA: General. ORNAMENTAL BRICK INSTALLER: Kenia Valencia PA-C INDICATIONS FOR PROCEDURE: This is a 65-year-old presenting with increasingly symptomatic incisional hernia formation. This appeared to be multifocal incarcerated recurrent incisional hernia located in the upper abdomen with some extension infraumbilically. Plan is to proceed with open repair of this with mesh. Potential risks including bleeding, infection, injury to underlying viscera, and problems with mesh becoming infected or hernia recurring over time were all reviewed along with remote possibility of cardiopulmonary, septic, or hemorrhagic complications leading to were discussed, and the patient wishes to proceed. DETAILS OF PROCEDURE: The patient was taken to the operating room and after general endotracheal anesthesia was induced, a Negrete catheter was inserted, and the abdomen prepped and draped. The previous upper midline incision was then reused. In upper 10 cm, the patient was noted to have a calcified area of the incision. This was a secondary bony formation extending down from the xiphoid. This bony component of the incision was then dissected free back to the level of xiphoid, very elongated, along with some of the jackson xiphoid bone was excised with a bone cutter and that specimen delivered from the field. Further dissection into the abdomen revealed extremely dense widespread adhesions. This took roughly 1-1/2 hours to takedown. Once these were completed, the patient was noted to have had multifocal incarcerated incisional hernia with incarcerated transverse colon, omentum, and preperitoneal fat within what was essentially 4 separate hernia sites along the midline. The 2 largest were at superior and inferior aspect of the incision. All of these were dissected free, and the surrounding soft tissues excised with the hernia sac, and they were then delivered from the field. Once there was no fascia to allow adequate repair of the hernia, bilateral transversus abdominis plane blocks were then placed. A ventral hernia mesh measuring 27.4 x 34.9 cm was then selected at 5 cm intervals around its circumference. On the polypropylene side, the patient had 2-0 Vicryl sutures placed. Stab wounds were then placed in the abdominal wall where those sutures would be pulled up fixing the mesh well away from the fascial edges. The mesh was soaked in antibiotic-containing saline solution to limit recurrent adhesion formation. A 12 inch segment of Vicryl mesh was placed underneath the incision and then along the abdominal wall laterally as well as down onto the pelvic wall. The mesh was then placed intraperitoneally, and the sutures pulled up fixing the mesh such that the polypropylene side of the mesh would face the abdominal wall. Once these sutures were then placed, they were then tied. The underlying shelf along the mesh was then affixed circumferentially with titanium tacking screws as well. Then, the midline fascia was approximated with #2 Vicryl stitch, subcutaneous tissue with 2 layers of 3-0 and 4-0 Vicryl stitch deep, and the skin with victorino. Dressing was applied. The patient was taken to the recovery room in satisfactory condition. Physician dental laboratory assistant, Kenia Valencia PA-C, played an essential role in assisting in this case, helping to position the patient, and retract structures as needed as well as suturing and cutting sutures when indicated. Her presence improved patient safety and decreased operative time. Jaya Peraza MD /[id number]
== END 2021-02-10 12:15 | disposition home health service (06) | DRG 327 ==
LOC: JP.SDSSCHI 07:04 → JP.SDS 07:04 → JP.MS 10:30 → EDSTATUS 12:15
PROVIDERS: ADMIT Surgery; ATTEND Surgery
PROC: 0PB00ZZ Excision of Sternum, Open Approach (ICD-10-PCS; principal; 2021-02-06)
PROC: 0BUT0JZ Supplement Diaphragm with Synthetic Substitute, Open Approach (ICD-10-PCS; principal; 2021-02-06)
PROC: 0DNW0ZZ Release Peritoneum, Open Approach (ICD-10-PCS; principal; 2021-02-06)
DX: K43.0 Incisional hernia with obstruction, without gangrene (principal); Z68.41 Body mass index [BMI] 40.0-44.9, adult; E66.01 Morbid (severe) obesity due to excess calories; I10 Essential (primary) hypertension; J45.909 Unspecified asthma, uncomplicated; E55.9 Vitamin D deficiency, unspecified; E53.8 Deficiency of other specified B group vitamins; E11.9 Type 2 diabetes mellitus without complications; Z79.4 Long term (current) use of insulin; K66.0 Peritoneal adhesions (postprocedural) (postinfection)
CPT/HCPCS: 88302; 88304; 88311; 94640; 94762; A9270-GY; C1713; C1781; J0171; J0330; J1100; J1170; J1650; J1956; J2020; J2185; J2405; J2704; J2710; J2795; J3010; J3490; J7120; J7121; J7620-GY